=== PATIENT | female | born 1965 | race Caucasian/White ===

== ENCOUNTER → 2016-03-16 | Outpatient (CLI) | payer BC ==
--- NOTE | 2016-03-16 13:03 | US ---
EXAMINATION TYPE: US venous doppler duplex LE RT DATE OF EXAM: 03/16/2016 12:52 PM COMPARISON: NONE TECHNIQUE: Duplex Doppler ultrasound examination of the right lower extremity. CLINICAL HISTORY: 50-year-old female right leg pain and swelling. Right ankle swelling and tender rig ht calf. Findings: SIDE PERFORMED: Right VESSELS IMAGED: External Iliac Vein (EIV) Common Femoral Vein Deep Femoral Vein Greater Saphenous Vein * Femoral Vein Popliteal Vein Proximal Calf Veins Posterior tibial veins (* superficial vessels) Right Leg: Negative for DVT IMPRESSION: No evidence of DVT within the right lower extremity.
== END | disposition home or self-care (01) ==
LOC: RADUSWWP 12:24
PROVIDERS: ATTEND Orthopaedic Surgery
DX: M79.661 Pain in right lower leg (principal); I80.9 Phlebitis and thrombophlebitis of unspecified site

== ENCOUNTER 2016-03-30 13:11 | Observation (INO) | payer BC ==
[2016-03-30] MEDS ORDERED: NITROGLYCERIN OINT 1 INCH/GM PACKET TOPICAL STA (13:30)
[2016-03-30] MEDS ORDERED: ASPIRIN 81 MG CHEW PO STA (13:30)
--- NOTE | 2016-03-30 13:34 | ED ---
General Adult HPI - General Chief complaint: Chest Pain Stated complaint: Chest Pain Time Seen by Provider: 03/30/16 13:25 Source: patient, RN notes reviewed Mode of arrival: wheelchair Limitations: no limitations - History of Present Illness Initial comments: Patient is a pleasant 50-year-old female presenting to the emergency department complaining of chest discomfort. Onset of symptoms was around a half an hour ago. Symptoms lasted 5-7 minutes. Symptoms have now resolved and patient is symptom-free. Discomfort feels like burning in her chest. No associated dyspnea, nausea, or diaphoresis. Patient had similar symptoms once previously however only lasted for a few seconds. No leg pain or swelling. No cough or fever. Patient does have a history of VSD with repair as a child. Patient also has a history of complete heart block with pacemaker and defibrillator placement. - Related Data Home Medications Medication Instructions Recorded Confirmed Atorvastatin [Lipitor] 20 mg PO HS 09/25/13 03/30/16 rOPINIRole HCL [Requip] 1 mg PO DAILY 09/25/13 03/30/16 Cyanocobalamin [Vitamin B-12] 1,000 mcg PO DAILY 12/03/14 03/30/16 DULoxetine HCL [Cymbalta] 60 mg PO BID 12/03/14 03/30/16 Hydrocodone/Acetaminophen [Vicodin 1 tab PO BID PRN 12/03/14 03/30/16 5-300 mg Tablet] Metoprolol Tartrate [Lopressor] 100 mg PO HS 12/03/14 03/30/16 Omeprazole [PriLOSEC] 20 mg PO AC-BRKFST 12/03/14 03/30/16 Cholecalciferol [Vitamin D3] 5,000 unit PO BID 09/10/15 03/30/16 Dulaglutide [Trulicity] 1.5 mg SQ WE 09/10/15 03/30/16 rOPINIRole HCL [Requip] 2 mg PO HS 11/28/15 03/30/16 Amitriptyline HCl [Elavil] 40 mg PO HS 11/29/15 03/30/16 Gabapentin 900 mg PO BID 11/29/15 03/30/16 Metoprolol Tartrate [Lopressor] 50 mg PO DAILY 11/29/15 03/30/16 V-Go 40 See Protocol SQ CONTINUOUS 11/29/15 03/30/16 Aspirin 325 mg PO HS 03/30/16 03/30/16 Furosemide [Lasix] 40 mg PO DAILY 03/30/16 03/30/16 Metolazone [Zaroxolyn] 2.5 mg PO DAILY 03/30/16 03/30/16 Allergies Allergy/AdvReac Type Severity Reaction Status Date / Time ibuprofen [From Motrin] Allergy PT HAS Verified 03/30/16 13:49 WEAK HEART MUSCLES-HIGH DOSES CAUSES CHF Iodine and Iodide Containing Allergy Rash/Hives Verified 03/30/16 14:41 Produc meperidine HCl [From Demerol] AdvReac Unknown Vomiting Verified 03/30/16 13:49 Review of Systems ROS Statement: Those systems with pertinent positive or pertinent negative responses have been documented in the HPI. ROS Other: All systems not noted in ROS Statement are negative. Constitutional: Denies: fever Eyes: Denies: eye pain ENT: Denies: ear pain Respiratory: Denies: cough Cardiovascular: Reports: chest pain Endocrine: Denies: fatigue Gastrointestinal: Denies: abdominal pain Genitourinary: Denies: dysuria Musculoskeletal: Denies: back pain Skin: Denies: rash Neurological: Denies: weakness Past Medical History Past Medical History: Coronary Artery Disease (CAD), Diabetes Mellitus, Fibromyalgia, Hyperlipidemia, Hypertension Additional Past Medical History / Comment(s): HX VSD- STAPH INFECTION 12 YRS AGO (2002) UNDER RT ARM. BOWEL PROBLEMS LATELY- STARTS WITH BELCHING & PASSING GAS & THEN NO CONTROL OF BM.-STARTED IN JUNE 2014, pac emaker defibrillator AICD in place, History of Any Multi-Drug Resistant Organisms: None Reported Past Surgical History: Adenoidectomy, AICD, Orthopedic Surgery, Tubal Ligation Additional Past Surgical History / Comment(s): SINUS SURGERY & DEVIATED SEPTUM SURGERY, Rt Shoulder surgery, Ventricular septal defect surgery @ AGE 3, HX PACEMAKER 1980- GENERATOR CHANGE 1988-THEN AICD 2004 WITH MULTIPLE LASER LEAD EXTRACTIONS IN 2008([facility]) left eye surgery 12/24/14 and 01/11 vitrectomy. Past Anesthesia/Blood Transfusion Reactions: No Reported Reaction Additional Past Anesthesia/Blood Transfusion Reaction / Comment(s): pt states she wakes up "slow and emotional". Type of Cardiac Device: AICD Device Placement Date:: 2004 Past Psychological History: Anxiety Smoking Status: Never smoker Past Alcohol Use History: Rare Past Drug Use History: None Reported - Past Family History Mother Family Medical History: COPD Father Family Medical History: AICD/Pacemaker, Coronary Artery Disease (CAD), Diabetes Mellitus, Hypertension, Myocardial Infarction (HI) Additional Family Medical History / Comment(s): HI @ AGE 43 @ AGE 62 Brother(s) Family Medical History: Myocardial Infarction (HI) Additional Family Medical History / Comment(s): HX HI X 3 -1ST ONE @ AGE 39 General Exam Limitations: no limitations General appearance: alert, in no apparent distress Head exam: Present: atraumatic Eye exam: Present: normal appearance, PERRL ENT exam: Present: normal oropharynx Neck exam: Present: normal inspection Respiratory exam: Present: normal lung sounds bilaterally. Absent: chest wall tenderness Cardiovascular Exam: Present: regular rate, normal rhythm Expanded Peripheral pulses: 2+: Dorsalis Pedis (R), Dorsalis Pedis (L) GI/Abdominal exam: Present: soft. Absent: tenderness Extremities exam: Present: normal inspection. Absent: pedal edema, calf tenderness Neurological exam: Present: alert Psychiatric exam: Present: normal affect, normal mood Skin exam: Absent: rash Course Vital Signs 03/30/16 03/30/16 03/30/16 13:13 13:46 14:41 Temperature 97.8 F Pulse Rate 85 83 81 Respiratory 20 17 17 Rate Blood Pressure 133/68 127/74 98/56 O2 Sat by Pulse 99 97 96 Oximetry - Reevaluation(s) Reevaluation #1: 03/30/16 14:46 Patient has elevated d-dimer. Patient states she had several CAT scans in a short period of time following this developed puritic rash. Patient does have fractures and mostly appears is a medication reaction rash with some associated hives. Patient did have some peeling of the skin on the bottom of her feet. Patient is agreeable with pretreatment for iodine ALLERGY followed by computed tomography scan of the chest to provide a more accurate diagnosis of chest discomfort and elevated d-dimer. EKG Findings - EKG Comments: EKG Findings:: Paced rhythm at 87. PA 186. QRS 188. QT 428. QTC 515. [place] and indeterminate. Wide QRS complex. Nonspecific ST-T. Medical Decision Making - Medical Decision Making Patient examined and resting comfortably in bed. Patient is symptom-free. Patient and family updated on results and plan. Computed tomography scan was ordered to rule out pulmonary embolism. Case was discussed in detail with Dr. Dr. Dang, who will admit for Shai Flores. Admission orders written. IV heparin started. Consult placed for cardiology. - Lab Data Result diagrams: 03/30/16 13:30 03/30/16 13:30 Lab Results 03/30/16 03/30/16 03/30/16 Range/Units 13:30 13:30 13:30 WBC 10.0 (3.8-10.6) k/uL RBC 4.33 (3.80-5.40) m/uL Hgb 12.8 (11.4-16.0) gm/dL Hct 40.1 (34.0-46.0) % MCV 92.5 (80.0-100.0) fL MCH 29.5 (25.0-35.0) pg MCHC 31.9 (31.0-37.0) g/dL RDW 14.1 (11.5-15.5) % Plt Count 234 (150-450) k/uL Neutrophils % 64 % Lymphocytes % 26 % Monocytes % 5 % Eosinophils % 2 % Basophils % 1 % Neutrophils # 6.4 (1.3-7.7) k/uL Lymphocytes # 2.6 (1.0-4.8) k/uL Monocytes # 0.5 (0-1.0) k/uL Eosinophils # 0.2 (0-0.7) k/uL Basophils # 0.1 (0-0.2) k/uL PT (9.0-12.0) sec INR (<1.1) APTT (22.0-30.0) sec D-Dimer (<0.60) mg/L FEU Sodium 138 (137-145) mmol/L Potassium 5.4 H (3.5-5.1) mmol/L Chloride 96 L (98-107) mmol/L Carbon Dioxide 30 (22-30) mmol/L Anion Gap 12 mmol/L BUN 23 H (7-17) mg/dL Creatinine 0.80 (0.52-1.04) mg/dL Est GFR (MDRD) Af Amer >60 (>60 ml/min/1.73 sqM) Est GFR (MDRD) Non-Af >60 (>60 ml/min/1.73 sqM) Glucose 261 H (74-99) mg/dL Calcium 9.3 (8.4-10.2) mg/dL Magnesium 1.9 (1.6-2.3) mg/dL Total Bilirubin 0.6 (0.2-1.3) mg/dL AST 25 (14-36) U/L ALT 33 (9-52) U/L Alkaline Phosphatase 274 H (38-126) U/L Total Creatine Kinase 28 L (30-135) U/L CK-MB (CK-2) 0.9 (0.0-2.4) ng/mL CK-MB (CK-2) Rel Index 3.2 Troponin I <0.012 (0.000-0.034) ng/mL Total Protein 7.6 (6.3-8.2) g/dL Albumin 4.0 (3.5-5.0) g/dL 03/30/16 Range/Units 13:30 WBC (3.8-10.6) k/uL RBC (3.80-5.40) m/uL Hgb (11.4-16.0) gm/dL Hct (34.0-46.0) % MCV (80.0-100.0) fL MCH (25.0-35.0) pg MCHC (31.0-37.0) g/dL RDW (11.5-15.5) % Plt Count (150-450) k/uL Neutrophils % % Lymphocytes % % Monocytes % % Eosinophils % % Basophils % % Neutrophils # (1.3-7.7) k/uL Lymphocytes # (1.0-4.8) k/uL Monocytes # (0-1.0) k/uL Eosinophils # (0-0.7) k/uL Basophils # (0-0.2) k/uL PT 10.5 (9.0-12.0) sec INR 1.0 (<1.1) APTT 22.6 (22.0-30.0) sec D-Dimer 1.12 H (<0.60) mg/L FEU Sodium (137-145) mmol/L Potassium (3.5-5.1) mmol/L Chloride (98-107) mmol/L Carbon Dioxide (22-30) mmol/L Anion Gap mmol/L BUN (7-17) mg/dL Creatinine (0.52-1.04) mg/dL Est GFR (MDRD) Af Amer (>60 ml/min/1.73 sqM) Est GFR (MDRD) Non-Af (>60 ml/min/1.73 sqM) Glucose (74-99) mg/dL Calcium (8.4-10.2) mg/dL Magnesium (1.6-2.3) mg/dL Total Bilirubin (0.2-1.3) mg/dL AST (14-36) U/L ALT (9-52) U/L Alkaline Phosphatase (38-126) U/L Total Creatine Kinase (30-135) U/L CK-MB (CK-2) (0.0-2.4) ng/mL CK-MB (CK-2) Rel Index Troponin I (0.000-0.034) ng/mL Total Protein (6.3-8.2) g/dL Albumin (3.5-5.0) g/dL - Radiology Data Radiology results: image reviewed (Chest x-ray shows no acute process. Cardiomegaly.) Critical Care Time Critical Care Time: Yes Total Critical Care Time: 32 Disposition Clinical Impression: Unstable angina pectoris Disposition: ADMITTED IP TO THIS [facility] Condition: Serious
[2016-03-30 13:49] LABS: Basophils # (A) 0.1 k/uL (0-0.2); Basophils % (A) 1 %; CH 29.6; CHCM 32.1; Eosinophils # (A) 0.2 k/uL (0-0.7); Eosinophils % (A) 2 %; HCT 40.1 % (34.0-46.0); HDW 2.83; HGB 12.8 gm/dL (11.4-16.0); Luc # (Auto) 0.24; Luc % (Auto) 2; Lymphocytes # (A) 2.6 k/uL (1.0-4.8); Lymphocytes % (A) 26 %; MCH 29.5 pg (25.0-35.0); MCHC 31.9 g/dL (31.0-37.0); MCV 92.5 fL (80.0-100.0); Monocytes # (A) 0.5 k/uL (0-1.0); Monocytes % (A) 5 %; Neutrophils # (A) 6.4 k/uL (1.3-7.7); Neutrophils % (A) 64 %; RBC 4.33 m/uL (3.80-5.40); RDW 14.1 % (11.5-15.5); WBC (Perox) 9.97
[2016-03-30 14:02] LABS: Partial Thromboplastin Time 22.6 sec (22.0-30.0); Prothrombin Time 10.5 sec (9.0-12.0)
--- NOTE | 2016-03-30 14:06 | XR ---
EXAMINATION TYPE: XR chest 2V DATE OF EXAM: 03/30/2016 1:58 PM COMPARISON: Prior chest x-ray September 10, 2015 HISTORY: History of VSD and pacemaker presents with chest pain today TECHNIQUE: Frontal and lateral views of the chest are obtained. FINDINGS: Multiple sternal wires majority which are broken are redemonstrated. There is no focal air space opacity, pleural effusion, or pneumothorax seen bilaterally. The cardiac silhouette size remai ns enlarged with multi lead pacemaker/AICD. There is epicardial pacer device along the left anterior margin redemonstrated. A 11 mm linear metallic density is felt to reflect foreign body possibly rela channing to pacemaker likely within the right ventricular mucosal wall and is stable. The osseous structur es are intact. IMPRESSION: Cardiomegaly without acute pulmonary process. No significant change from prior.
[2016-03-30 14:11] LABS: Creatine Kinase 28 U/L (30-135)
[2016-03-30 14:15] LABS: ALT 33 U/L (9-52); AST 25 U/L (14-36); Alkaline Phosphatase 274 U/L (38-126); Anion Gap 12 mmol/L; Blood Urea Nitrogen 23 mg/dL (7-17); Calcium 9.3 mg/dL (8.4-10.2); Carbon Dioxide 30 mmol/L (22-30); Chloride 96 mmol/L (98-107); Glucose 261 mg/dL (74-99); Magnesium 1.9 mg/dL (1.6-2.3); Non-African American GFR(MDRD) >60 (>60 ml/min/1.73 sqM); Potassium 5.4 mmol/L (3.5-5.1); Sodium 138 mmol/L (137-145); Total Bilirubin 0.6 mg/dL (0.2-1.3); Total Protein 7.6 g/dL (6.3-8.2)
[2016-03-30 14:24] LABS: Creatine Kinase MB 0.9 ng/mL (0.0-2.4); Troponin I <0.012 ng/mL (0.000-0.034)
[2016-03-30] MEDS ORDERED: methylPREDNISolone SOD SUCCI 125 MG/2 ML VIAL IV STA (14:45)
[2016-03-30] MEDS ORDERED: RX INFO: IV CONTRAST WAS GIVEN 1 EACH MISC MISCELLANE PRN (14:45)
[2016-03-30] MEDS ORDERED: FAMOTIDINE 20 MG/2 ML VIAL IV STA (14:45)
[2016-03-30] MEDS ORDERED: diphenhydrAMINE 50 MG/ML 1 ML VIAL IVP STA (14:45)
[2016-03-30] MEDS ORDERED: HEPARIN SODIUM,PORCINE 5,000 UNIT/ML 1 ML VIAL IV PRN (15:34)
[2016-03-30] MEDS ORDERED: HEPARIN SODIUM,PORCINE 5,000 UNIT/ML 1 ML VIAL IV ONE (15:34)
[2016-03-30] MEDS ORDERED: NITROGLYCERIN SL TABS 0.4 MG TAB SUBLINGUAL PRN (15:34)
--- NOTE | 2016-03-30 15:34 | CT ---
EXAMINATION TYPE: CT angio chest DATE OF EXAM: 03/30/2016 3:22 PM COMPARISON: Same day chest x-ray HISTORY: Heavy chest pain CT DLP: 618 mGycm. Automated Exposure Control for Dose Reduction was Utilized. CONTRAST: CTA scan of the thorax is performed with IV Contrast, patient injected with 100 mL of Omnipaque 350, pulmonary embolism protocol. MIP Images are created on CT scanner and reviewed. FINDINGS: Exam is suboptimal secondary to patient's large body habitus. LUNGS: Low lung volumes are present. Increased groundglass opacity could reflect mild alveolar edema. There is no concerning parenchymal mass or nodule identified bilaterally. There is no pleural effu catherine or pneumothorax seen bilaterally. The tracheobronchial tree is patent. MEDIASTINUM: There is satisfactory enhancement of the pulmonary artery and its branches, there is no CT evidence for pulmonary embolism. There are no greater than 1 cm hilar or mediastinal lymph nodes. No pericardial effusion is seen. Sternal wires and mediastinal clips are redemonstrated. There is multilevel right-sided pacemaker/defibrillator. There is a left-sided epicardial pacemaker noted. Alyce ear 1 cm metallic foreign body in the right ventricle is confirmed, possible pacemaker fragment on ax ial image 93. OTHER: No additional significant abnormality is seen. IMPRESSION: No CT evidence for pulmonary embolism. Cardiomegaly with perhaps mild central alveolar ed jennifer, consider CHF exacerbation. No suspicious consolidation or acute pulmonary process identified oth erwise.
[2016-03-30] MEDS ORDERED: HEPARIN SODIUM,PORCINE/D5W PMX 25,000 UNIT in DEXTROSE/WATER 1 500ML.BAG IV SCH (15:45)
[2016-03-30 17:12] LABS: Glucose,Whole Blood 131 mg/dL (75-99)
[2016-03-30] MEDS ORDERED: HYDROcodone/APAP 5-325MG 1 EACH TAB PO PRN (17:37)
[2016-03-30] MEDS ORDERED: NON-FORMULARY DRUG (Dulaglutide [Trulicity] 1.5 MG) SQ SCH (17:45)
[2016-03-30] MEDS: NITROGLYCERIN OINT 1 INCH/GM PACKET TOPICAL SCH (18:14)
[2016-03-30] MEDS ORDERED: INSULIN LISPRO (humaLOG) 300 UNIT/3 ML VIAL SQ PRN (18:50)
[2016-03-30] MEDS ORDERED: INSPUCOR MISCELLANE PRN (18:50)
--- NOTE | 2016-03-30 20:30 | P.HPIM ---
History of Present Illness H&P Date: 03/30/16 Chief Complaint: Chest pain. This is a 50-year-old female one of Dr. 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 Johnson and Dr. Glynn, history of diabetes mellitus type 2 , hyperlipidemia, hypertension and hypertensive cardiovascular disease, VSD status post repair, history of the obesity, possible obstructive sleep apnea, anxiety, patient was brought into the emergency department at [facility] because of a chest tightness that started on Monday and it lasted for about 2 minutes while she is sitting on the table without any relation to exertion, it did radiate to the neck and left shoulder associated with left arm numbness, patient didn't do anything about it at this time. This is happening again today while she was sitting again without any relation to exertion developed to have a significant chest tightness radiating to the neck as well as left shoulder and the patient developed to have a significant amount of neck pain and left shoulder numbness patient ended up coming to the emergency department at [facility] and she was seen and evaluated by the emergency room physician and she ended up having an EKG that showed a paced rhythm, and her cardiac enzymes are negative however because of her significant history she was admitted to the hospital for evaluation and cardiology consultation was obtained. Of notice patient did have stress test within a year according to her. Review of Systems Constitutional: Reports weight gain, Denies anorexia, Denies chronic headaches, Denies lethargy, Denies malaise, Denies weakness, Denies weight loss Eyes: bilateral blurred vision, denies bulging eye, denies decreased vision, denies diplopia Ears: deny: decreased hearing Ears, nose, mouth and throat: Denies dysphagia, Denies neck lump, Denies swelling in throat, Denies sore throat Cardiovascular: Reports chest pain, Reports decreased exercise tolerance, Reports dyspnea on exertion, Reports high blood pressure, Reports shortness of breath, Denies orthopnea, Denies palpitations, Denies paroxysmal nocturnal dyspnea, Denies phlebitis, Denies syncope Respiratory: Reports dyspnea, Reports sleep apnea, Reports snoring, Denies congestion, Denies cough, Denies cough with sputum, Denies wheezing Gastrointestinal: Denies abdominal pain, Denies bloating, Denies BRBPR, Denies early satiety, Denies excessive gas, Denies heartburn, Denies melena, Denies nausea, Denies vomiting Genitourinary: Denies dysuria, Denies hematuria Musculoskeletal: Denies myalgias Musculoskeletal: absent: ankle pain, ankle stiffness, ankle swelling, elbow pain , elbow stiffness, elbow swelling, foot pain, foot stiffness, foot swelling, hand pain, hand stiffness, hand swelling, hip pain, hip stiffness, hip swelling , knee pain, knee stiffness, knee swelling, shoulder pain, shoulder stiffness, shoulder swelling, wrist pain, wrist stiffness, wrist swelling Integumentary: Denies pruritus, Denies rash Neurological: Denies numbness, Denies weakness Psychiatric: Denies anxiety, Denies depression Endocrine: Denies fatigue, Denies weight change Past Medical History Past Medical History: Coronary Artery Disease (CAD), Diabetes Mellitus, Fibromyalgia, Hyperlipidemia, Hypertension Additional Past Medical History / Comment(s): HX VSD- STAPH INFECTION 12 YRS AGO (2002) UNDER RT ARM. BOWEL PROBLEMS LATELY- STARTS WITH BELCHING & PASSING GAS & THEN NO CONTROL OF BM.-STARTED IN JUNE 2014, pacemaker defibrillator AICD in place, History of Any Multi-Drug Resistant Organisms: None Reported Past Surgical History: Adenoidectomy, AICD, Orthopedic Surgery, Tubal Ligation Additional Past Surgical History / Comment(s): SINUS SURGERY & DEVIATED SEPTUM SURGERY, Rt Shoulder surgery, Ventricular septal defect surgery @ AGE 3, HX PACEMAKER 1980- GENERATOR CHANGE 1988-THEN AICD 2004 WITH MULTIPLE LASER LEAD EXTRACTIONS IN 2008([employer]) left eye surgery 12/24/14 and 01/11 vitrectomy. Past Anesthesia/Blood Transfusion Reactions: No Reported Reaction Additional Past Anesthesia/Blood Transfusion Reaction / Comment(s): pt states she wakes up "slow and emotional". Type of Cardiac Device: AICD Device Placement Date:: 2004 Past Psychological History: Anxiety Smoking Status: Never smoker Past Alcohol Use History: Rare Past Drug Use History: None Reported - Past Family History Mother Family Medical History: COPD, Diabetes Mellitus (Mother 74-year-old has history of diabetes as well as COPD.) Father Family Medical History: AICD/Pacemaker, Coronary Artery Disease (CAD) (Father at the age of 62 from [place] coronary artery disease with a cardiomyopathy due to alcohol and his first CA was at the age of 43.), Diabetes Mellitus, Hypertension, Myocardial Infarction (CA) Additional Family Medical History / Comment(s): CA @ AGE 43 @ AGE 62 Brother(s) Family Medical History: Myocardial Infarction (CA) (Patient has one biological brother who has 3 MIs and 2 half-brothers per he) Additional Family Medical History / Comment(s): HX CA X 3 -1ST ONE @ AGE 39 Medications and Allergies Home Medications Medication Instructions Recorded Confirmed Type Atorvastatin [Lipitor] 20 mg PO HS 09/25/13 03/30/16 History rOPINIRole HCL [Requip] 1 mg PO DAILY 09/25/13 03/30/16 History Cyanocobalamin [Vitamin B-12] 1,000 mcg PO DAILY 12/03/14 03/30/16 History DULoxetine HCL [Cymbalta] 60 mg PO BID 12/03/14 03/30/16 History Hydrocodone/Acetaminophen [Vicodin 1 tab PO BID PRN 12/03/14 03/30/16 History 5-300 mg Tablet] Metoprolol Tartrate [Lopressor] 100 mg PO HS 12/03/14 03/30/16 History Omeprazole [PriLOSEC] 20 mg PO AC-BRKFST 12/03/14 03/30/16 History Cholecalciferol [Vitamin D3] 5,000 unit PO BID 09/10/15 03/30/16 History Dulaglutide [Trulicity] 1.5 mg SQ WE 09/10/15 03/30/16 History rOPINIRole HCL [Requip] 2 mg PO HS 11/28/15 03/30/16 History Amitriptyline HCl [Elavil] 40 mg PO HS 11/29/15 03/30/16 History Gabapentin 900 mg PO BID 11/29/15 03/30/16 History Metoprolol Tartrate [Lopressor] 50 mg PO DAILY 11/29/15 03/30/16 History V-Go 40 See Protocol SQ CONTINUOUS 11/29/15 03/30/16 History Aspirin 325 mg PO HS 03/30/16 03/30/16 History Furosemide [Lasix] 40 mg PO DAILY 03/30/16 03/30/16 History Metolazone [Zaroxolyn] 2.5 mg PO DAILY 03/30/16 03/30/16 History Allergies Allergy/AdvReac Type Severity Reaction Status Date / Time ibuprofen [From Motrin] Allergy PT HAS Verified 03/30/16 13:49 WEAK HEART MUSCLES-HIGH DOSES CAUSES CHF Iodine and Iodide Containing Allergy Rash/Hives Verified 03/30/16 14:41 Produc meperidine HCl [From Demerol] AdvReac Unknown Vomiting Verified 03/30/16 13:49 Physical Exam Vitals: Vital Signs Temp Pulse Pulse Resp BP BP Pulse Ox 03/30/16 17:22 80 18 03/30/16 16:40 97.6 F 80 18 120/62 03/30/16 16:23 97.9 F 79 17 129/55 97 Intake and Output 03/30/16 03/30/16 03/30/16 06:59 14:59 22:59 Other: Voiding Method Toilet # Voids 1 Weight 99.4 kg Patient Weight 03/31/16 06:59 Weight 99.4 kg - Constitutional General appearance: mild distress, obese - EENT Eyes: anicteric sclerae, PERRLA, no ptosis, no scleral icterus, normal appearance ENT: normal oropharynx, no thrush Ears: bilateral: normal - Neck Neck: no lymphadenopathy, normal ROM, no rigidity, no stridor, no thyromegaly Carotids: bilateral: upstroke normal Thyroid: bilateral: normal size - Respiratory Respiratory: bilateral: diminished, negative: dullness, rales, rhonchi, wheezing , prolonged expiration, prolonged inspiration - Cardiovascular Rhythm: regular Heart sounds: normal: S1, S2 Abnormal Heart Sounds: systolic murmur (There is AICD/permanent pacemaker) - Gastrointestinal General gastrointestinal: normal bowel sounds, soft, no splenomegaly, no tenderness, no umbilical hernia, no ventral hernia - Integumentary Integumentary: normal, normal turgor, ulcer (Left heel.) - Neurologic Neurologic: CNII-XII intact - Musculoskeletal Musculoskeletal: gait normal, strength equal bilaterally - Psychiatric Psychiatric: A&O x's 3, appropriate affect, intact judgment & insight Results CBC & Chem 7: 03/30/16 13:30 03/30/16 13:30 Labs: Abnormal Lab Results - Last 24 Hours (Table) 03/30/16 Range/Units 17:11 POC Glucose (mg/dL) 131 H (75-99) mg/dL Thrombosis Risk Factor Assmnt - DVT/VTE Prophylaxis DVT/VTE Prophylaxis: Pharmacologic Prophylaxis ordered, Mechanical Prophylaxis ordered Assessment and Plan Plan: Assessment and plan: 1. Chest pain/tightness in a patient with significant history of cardiomyopathy. Patient will be started on aspirin 325 mg orally once every day , metoprolol 50 mg the morning and 100 mg at bedtime, heparin drip, cardiac enzymes 3 every 8 hours, cardiology consultation from Dr. Johnson. 2. History of congenital cardiomyopathy post AICD. Continue metoprolol 50 mg the morning and 100 mg at bedtime, continue Lasix 40 mg orally once every day, Zaroxolyn 2.5 mg orally once every day, monitor the patient CMP magnesium level. 3. Diabetes mellitus type 2. Continue current insulin pump. 4. Diabetic polyneuropathy. Continue gabapentin 900 mg orally twice every day , Cymbalta 60 mg orally twice every day, amitriptyline 40 mg at bedtime. 5. Restless leg syndrome. Continue patient on ropinirole 2 mg in the morning and 1 mg at bedtime. 6. Hyperlipidemia. Continue patient on Lipitor 20 mg orally once every day. 7. Vitamin D deficiency. Continue vitamin D 5000 units twice a day. 8. Obesity with possible obstructive sleep apnea. Patient will need to have a sleep study as an outpatient. 9. Left heel ulcer. Follow-up with one clinic. 10. Hypertension and hypertensive cardiovascular disease. Continue metoprolol 50 mg in the morning and 100 mg at bedtime. 11. Patient is a full code. 12. Observation.
[2016-03-30 20:31] LABS: Creatine Kinase 31 U/L (30-135)
[2016-03-30 20:44] LABS: Troponin I <0.012 ng/mL (0.000-0.034)
[2016-03-30] MEDS ORDERED: INSULIN PUMP MEAL BOLUS 1 UNIT MISC MISCELLANE SCH (21:00)
[2016-03-30] MEDS ORDERED: METOPROLOL TARTRATE 50 MG TAB PO SCH (21:00)
[2016-03-30] MEDS ORDERED: AMITRIPTYLINE HCL 10 MG TAB PO SCH (21:00)
[2016-03-30] MEDS ORDERED: ASPIRIN 325 MG TAB PO SCH (21:00)
[2016-03-30] MEDS ORDERED: ATORVASTATIN 20 MG TAB PO SCH (21:00)
[2016-03-30] MEDS: DULoxetine HCL 60 MG CAPSULE.DR PO SCH (21:54)
[2016-03-30] MEDS: GABAPENTIN 300 MG CAP PO SCH (21:55)
[2016-03-30] MEDS: CHOLECALCIFEROL 1,000 UNIT TAB PO SCH (21:55)
[2016-03-30 22:42] LABS: Glucose,Whole Blood 321 mg/dL (75-99)
[2016-03-31 02:25] LABS: CH 30.2; CHCM 32.8; HCT 39.7 % (34.0-46.0); HDW 2.78; HGB 12.6 gm/dL (11.4-16.0); MCH 29.4 pg (25.0-35.0); MCHC 31.7 g/dL (31.0-37.0); MCV 92.6 fL (80.0-100.0); Mean Platelet Volume 7.7; RBC 4.28 m/uL (3.80-5.40); RDW 14.1 % (11.5-15.5)
[2016-03-31 02:50] LABS: ALT 35 U/L (9-52); AST 22 U/L (14-36); Alkaline Phosphatase 281 U/L (38-126); Anion Gap 13 mmol/L; Blood Urea Nitrogen 27 mg/dL (7-17); Calcium 9.1 mg/dL (8.4-10.2); Carbon Dioxide 27 mmol/L (22-30); Chloride 94 mmol/L (98-107); Cholesterol 163 mg/dL (<200); Creatine Kinase 34 U/L (30-135); Glucose 336 mg/dL (74-99); HDL Cholesterol 45 mg/dL (40-60); Non-African American GFR(MDRD) >60 (>60 ml/min/1.73 sqM); Potassium 4.5 mmol/L (3.5-5.1); Sodium 134 mmol/L (137-145); Total Bilirubin 0.5 mg/dL (0.2-1.3); Total Protein 7.6 g/dL (6.3-8.2); Triglycerides 79 mg/dL (<150)
[2016-03-31 03:02] LABS: Creatine Kinase MB 0.9 ng/mL (0.0-2.4); Troponin I <0.012 ng/mL (0.000-0.034)
[2016-03-31] MEDS: NITROGLYCERIN OINT 1 INCH/GM PACKET TOPICAL SCH ×3 (04:37→12:17)
[2016-03-31 06:44] LABS: Glucose,Whole Blood 338 mg/dL (75-99)
[2016-03-31] MEDS ORDERED: PANTOPRAZOLE 40 MG TABLET PO SCH (07:30)
[2016-03-31 08:17] VITALS: RESP 18
[2016-03-31] MEDS ORDERED: ASPIRIN 325 MG TAB PO SCH (09:00)
[2016-03-31] MEDS ORDERED: METOLAZONE 2.5 MG TAB PO SCH (09:00)
[2016-03-31] MEDS ORDERED: METOPROLOL TARTRATE 50 MG TAB PO SCH (09:00)
[2016-03-31] MEDS ORDERED: FUROSEMIDE 40 MG TAB PO SCH (09:00)
[2016-03-31] MEDS ORDERED: INSULIN PUMP MEAL BOLUS 1 UNIT MISC MISCELLANE SCH ×2 (09:01→11:07)
[2016-03-31] MEDS: CHOLECALCIFEROL 1,000 UNIT TAB PO SCH (09:09)
[2016-03-31] MEDS: GABAPENTIN 300 MG CAP PO SCH (09:09)
[2016-03-31] MEDS: DULoxetine HCL 60 MG CAPSULE.DR PO SCH (09:10)
[2016-03-31] MEDS ORDERED: FUROSEMIDE 10 MG/ML 4 ML VIAL IV STA (09:58)
[2016-03-31] MEDS ORDERED: INSULIN PUMP BASAL RATES 1 EACH MISC MISCELLANE PRN (11:04)
[2016-03-31] MEDS ORDERED: INSPUCOR MISCELLANE PRN (11:04)
[2016-03-31 11:54] VITALS: BP 110/64; PULSE 86; TEMP 98.7
[2016-03-31] MEDS ORDERED: CYANOCOBALAMIN 500 MCG TAB PO SCH (12:00)
[2016-03-31 12:19] LABS: Glucose,Whole Blood 364 mg/dL (75-99)
[2016-03-31 14:00] VITALS: BMI 42.7
--- NOTE | 2016-03-31 17:00 | P.DS ---
Providers Date of admission: 03/30/16 15:34 Expected date of discharge: 03/31/16 Attending physician: Tarsha Dang Primary care physician: Anjel Vann [facility] Course: This is a 50-year-old female one of Dr. 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 Johnson and Dr. Glynn, history of diabetes mellitus type 2 , hyperlipidemia, hypertension and hypertensive cardiovascular disease, VSD status post repair, history of the obesity, possible obstructive sleep apnea, anxiety, patient was brought into the emergency department at [facility] because of a chest tightness that started on Monday and it lasted for about 2 minutes while she is sitting on the table without any relation to exertion, it did radiate to the neck and left shoulder associated with left arm numbness, patient didn't do anything about it at this time. This is happening again today while she was sitting again without any relation to exertion developed to have a significant chest tightness radiating to the neck as well as left shoulder and the patient developed to have a significant amount of neck pain and left shoulder numbness patient ended up coming to the emergency department at [facility] and she was seen and evaluated by the emergency room physician and she ended up having an EKG that showed a paced rhythm, and her cardiac enzymes are negative however because of her significant history she was admitted to the hospital for evaluation and cardiology consultation was obtained. Of notice patient did have stress test within a year according to her. 2/2: Patient has been seen by Dr. Glynn with recommendations for IV Lasix one dose and plan for outpatient workup with Dr. Johnson in a week. Patient will be discharged home today in stable condition. Discharge diagnoses: 1. Chest pain and tightness in a patient with significant history of cardiomyopathy. 2. History of congenital cardiomyopathy post AICD. 3. Diabetes mellitus type 2. 4. Diabetic polyneuropathy. 5. Restless leg syndrome. 6. Hyperlipidemia. 7. Vitamin D deficiency. 8. Morbid obesity with BMI of 42 and possible obstructive sleep apnea. 9. Left heel ulcer. Follow-up with wound clinic. 10. Hypertension and hypertensive cardiovascular disease. Discharge plan: Return home Impression and plan of care have been directed as dictated by the signing physician. Radha Almeida nurse practitioner acting as scribe for signing physician. Cc: Dr. Anjel Vann Patient Condition at Discharge: Good Plan - Discharge Summary Discharge Medication List Atorvastatin [Lipitor] 20 mg PO HS 09/25/13 [History] rOPINIRole HCL [Requip] 1 mg PO DAILY 09/25/13 [History] Cyanocobalamin [Vitamin B-12] 1,000 mcg PO DAILY 12/03/14 [History] DULoxetine HCL [Cymbalta] 60 mg PO BID 12/03/14 [History] Hydrocodone/Acetaminophen [Vicodin 5-300 mg Tablet] 1 tab PO BID PRN 12/03/14 [ History] Metoprolol Tartrate [Lopressor] 100 mg PO HS 12/03/14 [History] Omeprazole [PriLOSEC] 20 mg PO AC-BRKFST 12/03/14 [History] Cholecalciferol [Vitamin D3] 5,000 unit PO BID 09/10/15 [History] Dulaglutide [Trulicity] 1.5 mg SQ WE 09/10/15 [History] rOPINIRole HCL [Requip] 2 mg PO HS 11/28/15 [History] Amitriptyline HCl [Elavil] 40 mg PO HS 11/29/15 [History] Gabapentin 900 mg PO BID 11/29/15 [History] Metoprolol Tartrate [Lopressor] 50 mg PO DAILY 11/29/15 [History] V-Go 40 See Protocol SQ CONTINUOUS 11/29/15 [History] Aspirin 325 mg PO HS 03/30/16 [History] Furosemide [Lasix] 40 mg PO DAILY 03/30/16 [History] Metolazone [Zaroxolyn] 2.5 mg PO DAILY 03/30/16 [History] Follow up Appointment(s)/Referral(s): Anjel Vann MD [Primary Care Provider] - 1 Week Michelle Johnson MD [STAFF PHYSICIAN] - 1 Week Discharge Disposition: HOME SELF-CARE
[2016-03-31 17:09] LABS: Glucose,Whole Blood 384 mg/dL (75-99)
--- NOTE | 2016-04-08 08:23 | CONS ---
DATE OF CONSULTATION: Zaira presented with chest discomfort and chest tightness that started on Monday and lasted for several minutes as she was sitting. She has had recurrence of his episodes and later it started radiating to the neck as well as left shoulder. She came to the emergency room, her 12-lead ECG showed a paced rhythm. She has complete heart block status post ICD implantation. She has also undergone laser lead extraction by me greater than 12 years back. She denied any dizziness, lightheadedness or shortness of breath. She states she has gained a fair amount of weight and diabetes is not under control. Her past history of congenital heart disease status post ICD implantation, complete heart block, diabetes and dyslipidemia, hypertension, and hypertensive cardiovascular disease, VSD, status post repair, history of obesity, obstructive sleep apnea. REVIEW OF SYSTEMS: No fever, chills, rigors. No cough or expectoration. No nausea, or diarrhea. No hematuria, dysuria, strokes or seizures. No skin lesions or musculoskeletal complaints. Alcohol rarely used. She is a never smoker. Surgeries for congenital heart disease, laser lead extraction, pacemaker implantation, laser extraction of pacemaker lead, implantation ICD lead. MEDICATIONS: List was reviewed and is documented in the chart. ALLERGIES: As documented in the chart. On examination, she was afebrile. Pulse rate was in the 80s, blood pressure 129/55 mm of mercury, pulse ox normal. Head and neck examination is normal. Heart sounds S1 and S2 are normal. Breath sounds are normal. ICD site has healed well. ABDOMEN: Soft. EXTREMITIES: Warm. IMPRESSION: Atypical chest discomfort, congenital heart disease, and complete heart block status post VSD repair and ICD implantation. Paced rhythm. Labs are reviewed. Cardiac enzymes have been normal. TSH is normal. Electrolytes show chloride of 94 and sodium of 134. Potassium is normal. White count is normal. SUGGEST: Stop heparin after all 3 cardiac enzymes are normal and she can follow up with Dr. Johnson in the office and an outpatient Lexiscan stress test may be ordered as an outpatient.
== END 2016-03-31 17:25 | disposition home or self-care (01) ==
LOC: EC 13:11 → 3OBS 15:34
PROVIDERS: ADMIT Internal Medicine; ATTEND Internal Medicine
DX: R07.89 Other chest pain (principal); I42.4 Endocardial fibroelastosis; E11.42 Type 2 diabetes mellitus with diabetic polyneuropathy; G25.81 Restless legs syndrome; L97.429 Non-pressure chronic ulcer of left heel and midfoot with unspecified severity; E78.5 Hyperlipidemia, unspecified; E55.9 Vitamin D deficiency, unspecified; Z68.41 Body mass index [BMI] 40.0-44.9, adult; E66.01 Morbid (severe) obesity due to excess calories; F41.9 Anxiety disorder, unspecified; M79.7 Fibromyalgia; I11.9 Hypertensive heart disease without heart failure; R21 Rash and other nonspecific skin eruption; E11.621 Type 2 diabetes mellitus with foot ulcer; R79.89 Other specified abnormal findings of blood chemistry; I25.10 Atherosclerotic heart disease of native coronary artery without angina pectoris; Z95.810 Presence of automatic (implantable) cardiac defibrillator; Z79.899 Other long term (current) drug therapy; Z79.82 Long term (current) use of aspirin; Z88.6 Allergy status to analgesic agent; Z88.5 Allergy status to narcotic agent; Z96.41 Presence of insulin pump (external) (internal); Z82.49 Family history of ischemic heart disease and other diseases of the circulatory system; Z87.74 Personal history of (corrected) congenital malformations of heart and circulatory system; Z79.4 Long term (current) use of insulin; Z88.3 Allergy status to other anti-infective agents
CPT/HCPCS: 99291 ×2; 96375 ×4; 96376 ×2; 36415; 93005; 85379; 83880; 80061; 80053 ×2; 84443; 83036; 82550 ×2; 82553 ×2; 83735; 84484 ×2; 85025; 85027; 85610; 85730; 71020; 71275; G0378 ×2; J1200; J1644 ×3; J1940; J2930; Q9967; 96366

== ENCOUNTER → 2016-04-21 | Outpatient (CLI) | payer BC ==
--- NOTE | 2016-04-27 08:51 | P.ARTDOP ---
Arterial Doppler LOWER EXTREMITY ARTERIAL DOPPLER: DATE OF SERVICE: 04/21/2016 Reason for study: Left leg pain. Doppler waveforms: Multiphasic bilaterally throughout. Pulse volume recording: Normal configuration. Pressure gradients: None. Ankle-brachial indices: Greater than 1 bilaterally. Toe pressures: 44 on the right, 51 on the left Impression: Normal study. Note: Although the toe pressures are low, the digital plethysmography is normal. Also systemic pressure is relatively low..
== END | disposition home or self-care (01) ==
LOC: RADUSWWP 10:19
PROVIDERS: ATTEND Family Medicine
DX: M79.605 Pain in left leg (principal)
CPT/HCPCS: 93923

== ENCOUNTER 2016-05-31 11:38 | Day surgery (SDC) | payer BC ==
[2016-05-26 16:09] VITALS: BMI 44.1
[~2016-05-31 11:38] MED LIST: SODIUM CHLORIDE 0.9% 1,000 ML IV SCH
[2016-05-31 12:03] VITALS: BP 144/78; PULSE 92; RESP 18; TEMP 98.7
[2016-05-31] MEDS ORDERED: IODIXANOL 320 MG/ML 100 ML IV ONE (12:15)
--- NOTE | 2016-05-31 12:26 | P.PCN ---
Preoperative Diagnosis: Left upper extremity venogram 15-20 mL of IV dye was injected in the left upper extremity. 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 Patient is complete heart block Diabetes control to reduce infections rate since she's had multiple procedures in the past
== END 2016-05-31 12:48 | disposition home or self-care (01) ==
LOC: CATHEP 11:38
PROVIDERS: ATTEND Internal Medicine Clinical Cardiac Electrophysiology
DX: I82.B12 Acute embolism and thrombosis of left subclavian vein (principal); I44.2 Atrioventricular block, complete; I42.9 Cardiomyopathy, unspecified; I11.0 Hypertensive heart disease with heart failure; I50.23 Acute on chronic systolic (congestive) heart failure; Z95.810 Presence of automatic (implantable) cardiac defibrillator; R60.0 Localized edema; E11.9 Type 2 diabetes mellitus without complications; E78.2 Mixed hyperlipidemia; Q21.0 Ventricular septal defect; I25.10 Atherosclerotic heart disease of native coronary artery without angina pectoris; Z82.49 Family history of ischemic heart disease and other diseases of the circulatory system; Z79.4 Long term (current) use of insulin; Z79.82 Long term (current) use of aspirin; Z79.891 Long term (current) use of opiate analgesic; Z79.899 Other long term (current) drug therapy; Z88.8 Allergy status to other drugs, medicaments and biological substances
CPT/HCPCS: 36005; 75820; Q9967

== ENCOUNTER 2016-07-06 15:42 | Observation (INO) | payer BC ==
--- NOTE | 2016-07-06 17:24 | ED ---
Abdominal Pain HPI <RashaunvikaDuglas - Last Filed: 07/06/16 17:49> - General Source: patient, RN notes reviewed Mode of arrival: ambulatory Limitations: no limitations <Patricia Looney - Last Filed: 07/06/16 18:11> - General Chief Complaint: Abdominal Pain Stated Complaint: Abd Pain Time Seen by Provider: 07/06/16 17:09 - History of Present Illness Initial Comments: Patient is a 50-year-old female presents to the emergency room for evaluation. Patient states she began having right lower quadrant pain last Monday. Patient states she called her primary care provider on Monday and they were unable to get her in for an appointment. Patient states that they ordered a CT of her abdomen and pelvis which she went in for this morning. Patient states that she received a phone call from Dr. Holley to come to the emergency room regarding her computed tomography scan results. Patient does state that she had an episode of appendicitis in November. Patient states she was treated with antibiotics since she was having a CHF exacerbation and they could not take out her appendix at that time. Patient denies history of abdominal surgeries. Patient denies any current abdominal pain, fevers, chills, nausea, vomiting. Patient denies constipation or diarrhea. (Patricia Looney) - Related Data Home Medications Medication Instructions Recorded Confirmed Atorvastatin [Lipitor] 20 mg PO HS 09/25/13 07/06/16 rOPINIRole HCL [Requip] 1 mg PO QAM 09/25/13 07/06/16 Cyanocobalamin [Vitamin B-12] 1,000 mcg PO DAILY 12/03/14 07/06/16 DULoxetine HCL [Cymbalta] 60 mg PO BID 12/03/14 07/06/16 Metoprolol Tartrate [Lopressor] 100 mg PO HS 12/03/14 07/06/16 Omeprazole [PriLOSEC] 20 mg PO AC-BRKFST 12/03/14 07/06/16 Cholecalciferol [Vitamin D3] 5,000 unit PO BID 09/10/15 07/06/16 Dulaglutide [Trulicity] 1.5 mg SQ WE 09/10/15 07/06/16 rOPINIRole HCL [Requip] 2 mg PO HS 11/28/15 07/06/16 Amitriptyline HCl [Elavil] 40 mg PO HS 11/29/15 07/06/16 Gabapentin 900 mg PO BID 11/29/15 07/06/16 Metoprolol Tartrate [Lopressor] 50 mg PO QAM 11/29/15 07/06/16 Furosemide [Lasix] 40 mg PO Q48H 03/30/16 07/06/16 Metolazone [Zaroxolyn] 2.5 mg PO Q48H 03/30/16 07/06/16 Albuterol Nebulized [Ventolin 2.5 mg INHALATION RT-DAILY PRN 04/04/16 07/06/16 Nebulized] Cyclobenzaprine [Flexeril] 10 mg PO BID 04/04/16 07/06/16 Ramipril [Altace] 5 mg PO DAILY 04/04/16 07/06/16 Spironolactone [Aldactone] 25 mg PO DAILY 04/04/16 07/06/16 valACYclovir [Valtrex] 500 mg PO DAILY 04/04/16 07/06/16 Amitriptyline HCl [Elavil] 10 mg PO QAM 05/26/16 07/06/16 Furosemide [Lasix] 80 mg PO Q48H 05/26/16 07/06/16 [id number]-[id number] 1 tab PO BID PRN 07/06/16 07/06/16 [Excedrin] Insulin Aspart [NovoLOG Flexpen] See Protocol SQ AC-TID 07/06/16 07/06/16 Insulin Glargine,Hum.rec.anlog 50 unit SQ DAILY 07/06/16 07/06/16 [Basaglar Kwikpen U-100] Allergies Allergy/AdvReac Type Severity Reaction Status Date / Time ibuprofen [From Motrin] Allergy PT HAS Verified 07/06/16 17:42 WEAK HEART MUSCLES-HIGH DOSES CAUSES CHF Iodine and Iodide Containing Allergy Rash/Hives Verified 07/06/16 17:42 Produc meperidine HCl [From Demerol] AdvReac Unknown Vomiting Verified 07/06/16 17:42 Review of Systems ROS Other: All systems not noted in ROS Statement are negative. <Duglas Phelps - Last Filed: 07/06/16 17:49> ROS Other: All systems not noted in ROS Statement are negative. <Patricia Looney - Last Filed: 07/06/16 18:11> ROS Statement: Those systems with pertinent positive or pertinent negative responses have been documented in the HPI. Past Medical History Past Medical History: Asthma, Diabetes Mellitus, Eye Disorder, Fibromyalgia Additional Past Medical History / Comment(s): SEE DR MCGILL H&P, MATHEW LEGS NEUROPATHY, FX OF LEFT FOOT, Diabetic Gastroparesis. TAKES MEDICATION MAINTENENCE FOR STD, History of Any Multi-Drug Resistant Organisms: None Reported Past Surgical History: Adenoidectomy, AICD, Orthopedic Surgery Additional Past Surgical History / Comment(s): SINUS SURGERY, DEVIATED SEPTUM SURGERY,. HX PACEMAKER ORIGINAL ONE 1980-HAS HAD MULT. GENERATOR CHANGES, MATHEW eye surgery and 01/11 vitrectomy. WOUND CENTER FOR LEFT FOOT WOUND, I&D RT AXILLA FOR STAPH INFECTION, PICC LINE. SX TO RELEASE FROZEN RT SHOULDER Past Anesthesia/Blood Transfusion Reactions: Previous Problems w/ Anesthesia Additional Past Anesthesia/Blood Transfusion Reaction / Comment(s): pt states she wakes up "slow and emotional-CRIES". Type of Cardiac Device: AICD Device Placement Date:: 2004 [employer] Past Psychological History: No Psychological Hx Reported Additional Psychological History / Comment(s): CYMBALTA, ELAVIL USED TO HELP WITH PAIN AND RESTLESS LEG Smoking Status: Never smoker Past Alcohol Use History: Rare Past Drug Use History: None Reported - Past Family History Mother Family Medical History: COPD Father Family Medical History: AICD/Pacemaker, Coronary Artery Disease (CAD), Diabetes Mellitus, Hypertension, Myocardial Infarction ([place]) Additional Family Medical History / Comment(s): [place] @ AGE 43 @ AGE 62 Brother(s) Family Medical History: Myocardial Infarction ([place]) Additional Family Medical History / Comment(s): HX [place] X 3 -1ST ONE @ AGE 39 <Patricia Looney - Last Filed: 07/06/16 18:11> General Exam <Duglas Phelps - Last Filed: 07/06/16 17:49> Limitations: no limitations General appearance: alert, in no apparent distress Head exam: Present: atraumatic, normocephalic, normal inspection Eye exam: Present: normal appearance ENT exam: Present: normal exam Neck exam: Present: normal inspection Respiratory exam: Present: normal lung sounds bilaterally. Absent: respiratory distress Cardiovascular Exam: Present: regular rate, normal rhythm, normal heart sounds GI/Abdominal exam: Present: soft, tenderness (very minimal tenderness on palpating over RLQ), normal bowel sounds. Absent: distended, guarding, rebound , rigid Extremities exam: Present: normal inspection Back exam: Present: normal inspection Neurological exam: Present: alert, oriented X3, CN II-XII intact, normal gait Psychiatric exam: Present: normal affect, normal mood Skin exam: Present: warm, dry, intact, normal color. Absent: rash <Patricia Looney - Last Filed: 07/06/16 18:11> - General Exam Comments Initial Comments: Sitting in exam room, no acute distress. (Patricia Looney) Medical Decision Making <Duglas Phelps - Last Filed: 07/06/16 17:49> - Radiology Data Radiology results: report reviewed, image reviewed <Patricia Looney - Last Filed: 07/06/16 18:11> - Medical Decision Making I saw this patient in conjunction with the physician digital assistant. I performed independent history and physical exam. Agree with case management. (Duglas Phelps) Patient is a 50-year-old female presents to the emergency room for evaluation of abnormal abdomen CT. Patient has a history of acute appendicitis back in November and was treated with antibiotics. Patient states began having pain in her right lower quadrant last Monday. Patient went in for a CT of her abdomen /pelvis today received a phone call to come in. Patient does appear to have inflammation of her appendix. Case discussed with Dr. Phelps. Dr. Phelps discussed case with Dr. Bond who agreed to admit patient. Patient will be started on antibiotics and evaluated by general surgery tomorrow morning. ( Patricia Looney) Disposition <Duglas Phelps - Last Filed: 07/06/16 17:49> Decision Date: 07/06/16 <Patricai Looney - Last Filed: 07/06/16 18:11> Clinical Impression: Appendicitis Disposition: ADMITTED IP TO THIS [facility] Condition: Stable Referrals: Anjel Vann MD [Primary Care Provider] - 1-2 days
[2016-07-06] MEDS ORDERED: NALOXONE 0.4 MG/ML 1 ML VIAL IV PRN (17:54)
[2016-07-06] MEDS ORDERED: MORPHINE SULFATE 4 MG/ML SYRINGE IV PRN (17:54)
[2016-07-06] MEDS ORDERED: PIPERACILLIN-TAZOBACTAM 3.375 GM in DEXTROSE/WATER 1 50ML.BAG IVPB STA (17:58)
[2016-07-06 18:18] LABS: Appearance,Urine Clear (Clear); Bilirubin,Urine Negative (Negative); Glucose,Urine (UA) 4+ (Negative); Ketones,Urine Negative (Negative); Leukocyte Esterase,Urine Negative (Negative); Nitrite,Urine Negative (Negative); PH, Urine 5.5 (5.0-8.0); Protein,Urine Trace (Negative); Specific Gravity,Urine 1.027 (1.001-1.035); UA Billing (MACRO vs. MICRO) CHEM; Urobilinogen,Urine <2.0 mg/dL (<2.0)
[2016-07-06 18:25] LABS: ALT 35 U/L (9-52); AST 24 U/L (14-36); Alkaline Phosphatase 224 U/L (38-126); Anion Gap 12 mmol/L; Basophils % (A) 0 %; Blood Urea Nitrogen 34 mg/dL (7-17); CHCM 33.8; Calcium 9.3 mg/dL (8.4-10.2); Carbon Dioxide 30 mmol/L (22-30); Chloride 94 mmol/L (98-107); Eosinophils % (A) 0 %; Glucose 380 mg/dL (74-99); HCT 38.4 % (34.0-46.0); HDW 2.63; HGB 12.8 gm/dL (11.4-16.0); Luc # (Auto) 0.04; Luc % (Auto) 0; Lymphocytes # (A) 0.9 k/uL (1.0-4.8); Lymphocytes % (A) 8 %; MCH 30.6 pg (25.0-35.0); MCHC 33.2 g/dL (31.0-37.0); Mean Platelet Volume 7.5; Monocytes # (A) 0.3 k/uL (0-1.0); Monocytes % (A) 3 %; Neutrophils # (A) 9.3 k/uL (1.3-7.7); Neutrophils % (A) 88 %; Non-African American GFR(MDRD) >60 (>60 ml/min/1.73 sqM); Potassium 4.1 mmol/L (3.5-5.1); RBC 4.18 m/uL (3.80-5.40); RDW 14.9 % (11.5-15.5); Sodium 136 mmol/L (137-145); Total Bilirubin 0.6 mg/dL (0.2-1.3); Total Protein 7.8 g/dL (6.3-8.2); WBC 10.6 k/uL (3.8-10.6); WBC (Perox) 10.52
[2016-07-06] MEDS: SODIUM CHLORIDE 0.9% 1,000 ML IV SCH (18:30)
[2016-07-06 19:52] LABS: Glucose,Whole Blood 362 mg/dL (75-99)
[2016-07-06] MEDS: INSULIN LISPRO (humaLOG) 300 UNIT/3 ML VIAL SQ SCH (20:31)
[2016-07-06 21:57] LABS: Glucose,Whole Blood 350 mg/dL (75-99)
[2016-07-07] MEDS ORDERED: ALBUTEROL NEBULIZED 2.5 MG/3 ML INHALATION PRN (01:07)
[2016-07-07] MEDS ORDERED: ASPIRIN-ACET-CAFF 250-250-65MG 1 EACH TAB PO PRN (01:07)
[2016-07-07] MEDS: AMITRIPTYLINE HCL 10 MG TAB PO SCH ×2 (01:47→22:35)
[2016-07-07] MEDS: ATORVASTATIN 20 MG TAB PO SCH ×2 (01:48→22:34)
[2016-07-07] MEDS: GABAPENTIN 300 MG CAP PO SCH ×3 (01:49→22:37)
[2016-07-07] MEDS: METOPROLOL TARTRATE 50 MG TAB PO SCH ×3 (01:50→22:38)
[2016-07-07 07:11] LABS: Glucose,Whole Blood 255 mg/dL (75-99)
[2016-07-07] MEDS: INSULIN LISPRO (humaLOG) 300 UNIT/3 ML VIAL SQ SCH ×4 (07:31→22:24)
[2016-07-07] MEDS: CHOLECALCIFEROL 1,000 UNIT TAB PO SCH ×2 (07:31→22:36)
[2016-07-07 07:57] LABS: Hemoglobin A1C 8.7 % (4.2-6.1)
[2016-07-07] MEDS ORDERED: AMITRIPTYLINE HCL 10 MG TAB PO SCH (09:00)
--- NOTE | 2016-07-07 09:37 | P.GSHP ---
History of Present Illness H&P Date: 07/07/16 Chief Complaint: Right lower quadrant pain Is a 50-year-old female who has complaints of right lower quadrant pain. Patient CAT scan performed yesterday which is suggestive of appendicitis. Patient states that she had a previous admission for appendicitis in November. At that time she was treated with IV antibiotics and no surgical procedures performed. Patient states that she has had pain for the last several weeks in the right lower quadrant. - Constitutional Constitutional: Reports as per HPI Past Medical History Past Medical History: Asthma, Diabetes Mellitus, Eye Disorder, Fibromyalgia Additional Past Medical History / Comment(s): SEE DR MCGILL H&P, MATHEW LEGS NEUROPATHY, FX OF LEFT FOOT, Diabetic Gastroparesis. TAKES MEDICATION MAINTENENCE FOR STD, History of Any Multi-Drug Resistant Organisms: None Reported Past Surgical History: Adenoidectomy, AICD, Orthopedic Surgery Additional Past Surgical History / Comment(s): SINUS SURGERY, DEVIATED SEPTUM SURGERY,. HX PACEMAKER ORIGINAL ONE 1980-HAS HAD MULT. GENERATOR CHANGES, MATHEW eye surgery and 01/11 vitrectomy. WOUND CENTER FOR LEFT FOOT WOUND, I&D RT AXILLA FOR STAPH INFECTION, PICC LINE. SX TO RELEASE FROZEN RT SHOULDER Past Anesthesia/Blood Transfusion Reactions: Previous Problems w/ Anesthesia Additional Past Anesthesia/Blood Transfusion Reaction / Comment(s): pt states she wakes up "slow and emotional-CRIES". Type of Cardiac Device: AICD Device Placement Date:: 2004 [employer] Past Psychological History: No Psychological Hx Reported Additional Psychological History / Comment(s): CYMBALTA, ELAVIL USED TO HELP WITH PAIN AND RESTLESS LEG Smoking Status: Never smoker Past Alcohol Use History: Rare Past Drug Use History: None Reported - Past Family History Mother Family Medical History: COPD Father Family Medical History: AICD/Pacemaker, Coronary Artery Disease (CAD), Diabetes Mellitus, Hypertension, Myocardial Infarction ([place]) Additional Family Medical History / Comment(s): [place] @ AGE 43 @ AGE 62 Brother(s) Family Medical History: Myocardial Infarction ([place]) Additional Family Medical History / Comment(s): HX [place] X 3 -1ST ONE @ AGE 39 Medications and Allergies Home Medications Medication Instructions Recorded Confirmed Type Atorvastatin [Lipitor] 20 mg PO HS 09/25/07/06/16 History rOPINIRole HCL [Requip] 1 mg PO QAM 09/25/13 07/06/16 History Cyanocobalamin [Vitamin B-12] 1,000 mcg PO DAILY 12/03/14 07/06/16 History DULoxetine HCL [Cymbalta] 60 mg PO BID 12/03/14 07/06/16 History Metoprolol Tartrate [Lopressor] 100 mg PO HS 12/03/14 07/06/16 History Omeprazole [PriLOSEC] 20 mg PO AC-BRKFST 12/03/14 07/06/16 History Cholecalciferol [Vitamin D3] 5,000 unit PO BID 09/10/15 07/06/16 History Dulaglutide [Trulicity] 1.5 mg SQ WE 09/10/15 07/06/16 History rOPINIRole HCL [Requip] 2 mg PO HS 11/28/15 07/06/16 History Amitriptyline HCl [Elavil] 40 mg PO HS 11/29/15 07/06/16 History Gabapentin 900 mg PO BID 11/29/15 07/06/16 History Metoprolol Tartrate [Lopressor] 50 mg PO QAM 11/29/15 07/06/16 History Furosemide [Lasix] 40 mg PO Q48H 03/30/16 07/06/16 History Metolazone [Zaroxolyn] 2.5 mg PO Q48H 03/30/16 07/06/16 History Albuterol Nebulized [Ventolin 2.5 mg INHALATION RT-DAILY PRN 04/04/16 07/06/16 History Nebulized] Cyclobenzaprine [Flexeril] 10 mg PO BID 04/04/16 07/06/16 History Ramipril [Altace] 5 mg PO DAILY 04/04/16 07/06/16 History Spironolactone [Aldactone] 25 mg PO DAILY 04/04/16 07/06/16 History valACYclovir [Valtrex] 500 mg PO DAILY 04/04/16 07/06/16 History Amitriptyline HCl [Elavil] 10 mg PO QAM 05/26/16 07/06/16 History Furosemide [Lasix] 80 mg PO Q48H 05/26/16 07/06/16 History [id number]-Rqbr-Tvdv [id number] 1 tab PO BID PRN 07/06/16 07/06/16 History [Excedrin] Insulin Aspart [NovoLOG Flexpen] See Protocol SQ AC-TID 07/06/16 07/06/16 History Insulin Glargine,Hum.rec.anlog 50 unit SQ DAILY 07/06/16 07/06/16 History [Basaglar Kwikpen U-100] Allergies Allergy/AdvReac Type Severity Reaction Status Date / Time ibuprofen [From Motrin] Allergy PT HAS Verified 07/06/16 17:42 WEAK HEART MUSCLES-HIGH DOSES CAUSES CHF Iodine and Iodide Containing Allergy Rash/Hives Verified 07/06/16 17:42 Produc meperidine HCl [From Demerol] AdvReac Unknown Vomiting Verified 07/06/16 17:42 Surgical - Exam Vital Signs Temp Pulse Resp BP Pulse Ox 98.9 F 90 18 117/55 96 07/06/16 17:07 07/06/16 17:07 07/06/16 17:07 07/06/16 17:07 07/06/16 17:07 - General well developed, no distress - Eyes PERRL - ENT normal pinna - Neck no masses - Respiratory normal expansion - Cardiovascular Rhythm: regular - Abdomen Mild right lower quadrant tenderness, there is no rebound or guarding Abdomen: soft Results - Labs 07/06/16 18:04 07/06/16 18:04 Abnormal Lab Results - Last 24 Hours (Table) 07/06/16 07/06/16 07/07/16 Range/Units 19:43 21:43 07:04 POC Glucose (mg/dL) 362 H 350 H 255 H (75-99) mg/dL - Imaging CT scan - abdomen: report reviewed (Evidence of cecal and appendiceal inflammation. Umbilical hernia, gallbladder with gallstones.) Assessment and Plan Plan: Chronic appendicitis. We'll perform laparoscopic appendectomy
[2016-07-07] MEDS ORDERED: IV FLUID CONTINUATION 1,000 ML IV ONE (09:39)
[2016-07-07] MEDS: ONDANSETRON 4 MG/2 ML VIAL IVP PRN ×2 (09:40→09:50)
[2016-07-07] MEDS ORDERED: HEPARIN SODIUM,PORCINE 5,000 UNIT/ML 1 ML VIAL SQ ONE ×2 (09:40→09:50)
[2016-07-07 09:48] LABS: Glucose,Whole Blood 179 mg/dL (75-99)
[2016-07-07] MEDS ORDERED: ePHEDrine 50 MG/ML 1 ML AMP ONE (09:52)
[2016-07-07] MEDS ORDERED: LIDOCAINE 1% INJ 10MG/ML (20 ML MDV) ONE (09:52)
[2016-07-07] MEDS ORDERED: MIDAZOLAM 2 MG/2 ML VIAL ONE (09:52)
[2016-07-07] MEDS ORDERED: ROCURONIUM BROMIDE 10 MG/ML 10 ML VIAL IV ONE (09:52)
[2016-07-07] MEDS ORDERED: SUCCINYLCHOLINE CHLORIDE 100 MG/5 ML SYR IV ONE (09:52)
[2016-07-07] MEDS ORDERED: GLYCOPYRROLATE 0.2 MG/ML 2 ML VIAL ONE (09:52)
[2016-07-07] MEDS ORDERED: PHENYLEPHRINE-0.9% NACL SYG 1 MG/10 ML SYRINGE ONE (09:52)
[2016-07-07] MEDS ORDERED: NEOSTIGMINE 1 MG/ML 10 ML VIAL ONE (09:52)
[2016-07-07] MEDS ORDERED: fentaNYL (PF) 50 MCG/ML 2 ML AMP ONE (09:52)
[2016-07-07] MEDS ORDERED: PROPOFOL 10 MG/ML 20 ML VIAL IV ONE (09:52)
[2016-07-07] MEDS ORDERED: BUPIVACAIN-EPI 0.25%-1:200,000 30 ML VIAL SQ ONE (10:11)
[2016-07-07] MEDS ORDERED: NALOXONE 0.4 MG/ML 1 ML VIAL IV PRN (10:29)
[2016-07-07] MEDS ORDERED: ACETAMINOPHEN TAB 325 MG TAB PO PRN (10:29)
[2016-07-07] MEDS ORDERED: HYDROcodone/APAP 5-325MG 1 EACH TAB PO PRN (10:29)
[2016-07-07] MEDS ORDERED: HYDROmorphone 1 MG/ML 1 ML SYRINGE IVP PRN (10:29)
--- NOTE | 2016-07-07 10:29 | P.OP ---
Date of Procedure: 07/07/16 Preoperative Diagnosis: Chronic appendicitis Postoperative Diagnosis: Chronic appendicitis Procedure(s) Performed: Laparoscopic appendectomy Anesthesia: NOMI Surgeon: Castillo Holley Estimated Blood Loss (ml): 5 Pathology: other (Appendix) Condition: stable Disposition: PACU Description of Procedure: HThe patient's placed on the operating table in the supine position. The patient received general anesthesia. The abdomen was prepped and draped in the usual sterile fashion. The skin was anesthetized 1% local Xylocaine at the trocar sites. Using an 11 blade the skin was incised at the umbilicus. The umbilicus was grasped with a Stefan clamp and then a Veress needle was placed into the peritoneal cavity. Position of the Veress needle was confirmed with positive drop test. After adequate insufflation a 5 mm trocar was placed into the peritoneal cavity. The abdomen was further insufflated. And then the laparoscope was placed in the peritoneal cavity. Next a 5 mm trocar was placed in the midline suprapubic position. And then a 10 mm trocar was placed in the midline epigastric position. The patient was rotated with the right side up and in Trendelenburg. The appendix was visualized. The appendix appeared to be inflamed. The appendix was grasped and then using the Harmonic scissors the mesoappendix was divided. A PDS Endoloop was then placed around the base of the appendix. And then the appendix was divided using Harmonic scissors. The appendix was placed into an Endo Catch and brought out through the 10 mm trocar site. The abdomen was irrigated. There is no bleeding seen. The trochars withdrawn. The skin was closed interrupted 3-0 Monocryl suture. Dermabond dressing was applied. Patient was sent to recovery room in stable condition.
[2016-07-07] MEDS: LACTATED RINGERS 1,000 ML IV ONE ×2 (10:49→11:58)
[2016-07-07 10:57] LABS: Glucose,Whole Blood 172 mg/dL (75-99)
[2016-07-07 11:42] VITALS: RESP 16
[2016-07-07] MEDS: KETOROLAC 30 MG/ML 1 ML VIAL IVP SCH ×3 (12:13→23:46)
[2016-07-07 12:27] LABS: Glucose,Whole Blood 197 mg/dL (75-99)
[2016-07-07 17:12] LABS: Glucose,Whole Blood 316 mg/dL (75-99)
[2016-07-07] MEDS: SODIUM CHLORIDE 0.9% 1,000 ML IV SCH (17:16)
[2016-07-07] MEDS ORDERED: METOLAZONE 2.5 MG TAB PO SCH (17:45)
[2016-07-07] MEDS: INSULIN GLARGINE 100 UNIT/ML 10 ML VIAL SQ SCH (17:50)
[2016-07-07] MEDS ORDERED: FUROSEMIDE 40 MG TAB PO SCH (21:15)
[2016-07-07] MEDS: FAMOTIDINE 20 MG TAB PO SCH (22:33)
[2016-07-07] MEDS: CYCLOBENZAPRINE 10 MG TAB PO SCH (22:39)
[2016-07-07] MEDS: DULoxetine HCL 60 MG CAPSULE.DR PO SCH (22:39)
[2016-07-07 22:42] LABS: Glucose,Whole Blood 223 mg/dL (75-99)
[2016-07-08] MEDS ORDERED: PANTOPRAZOLE 40 MG TABLET PO SCH (07:30)
[2016-07-08 07:55] LABS: Glucose,Whole Blood 73 mg/dL (75-99)
[2016-07-08] MEDS: KETOROLAC 30 MG/ML 1 ML VIAL IVP SCH (08:20)
[2016-07-08] MEDS: INSULIN LISPRO (humaLOG) 300 UNIT/3 ML VIAL SQ SCH (08:20)
[2016-07-08] MEDS: GABAPENTIN 300 MG CAP PO SCH (08:24)
--- NOTE | 2016-07-08 08:24 | CONS ---
DATE OF CONSULTATION: REASON FOR CONSULTATION: Advice regarding diabetes mellitus and other medical issues requested by Dr. Holley. HISTORY OF PRESENT ILLNESS: This 50-year-old woman with past history of asthma, diabetes mellitus, history of automatic implantable cardioverter defibrillator, history of diabetic gastroparesis, history of diabetic peripheral neuropathy, was having complaints of significant pain in the right lower quadrant for several years on recurrent basis. Yesterday because of increasing pain the patient came to [facility] and admitted for further evaluation and treatment. The patient also had abdomen and pelvis CT scan as a part of the work-up recently, which showed inflammation at the margin. Patient underwent laparoscopic appendectomy by Dr. Holley. There is no history of fever, rigors. No history of headache, loss of consciousness, seizures, chest pain, palpitations, hematochezia or melena present. PAST MEDICAL HISTORY: History of diabetes mellitus, asthma, history of fibromyalgia, surgery. Medications prior to admission include home medications are: 1. Valtrex 500 mg p.o. daily. 2. Requip 2 mg p.o. daily. 4. Aldactone 25 mg p.o. daily. 5. Altace 5 mg p.o. daily. 6. Prilosec 20 mg breakfast. 7. Lopressor 50 mg p.m. and 100 mg q.48 hours. 8. Zaroxolyn 2.5 mg q.48 hours. 10. Insulin glargine 15 units subcu daily. 11. Gabapentin 900 mg p.o. b.i.d. 12. Lasix 80 mg q.48 hours. 13. Lasix 40 mg p.o. q.48 hours. 14. Cymbalta 60 mg p.o. b.i.d. 15. Flexeril 10 mg p.o. daily. 16. Vitamin B 2000 mg p.o. daily. 17. Vitamin D3, 5000 daily. 18. Lipitor 20 mg q.h.s. 19. Excedrin 1 tablet p.o. b.i.d. p.r.n. 20. Elavil 10 mg q.a.m. and 40 mg q.h.s. 21. Ventolin 2.5 daily p.r.n. 22. Hydrocodone 7.5 q.6 p.r.n. 23. Colace 100 mg p.o. b.i.d. ALLERGIES: IBUPROFEN, IODINE AND DEMEROL. FAMILY HISTORY: History of COPD in the family. SOCIAL HISTORY: No history of smoking, no history of alcohol. REVIEW OF SYSTEMS: ENT: No diminished vision, no diminished hearing. CARDIOVASCULAR: NO angina. RESPIRATORY: No cough, hemoptysis. GI: As mentioned earlier. : As mentioned earlier. The patient had ovarian cyst. NERVOUS SYSTEM: No numbness or weakness. ALLERGY/IMMUNOLOGY: No asthma or hayfever. MUSCULOSKELETAL: As mentioned earlier. HEMATOLOGY: No history of anemia. ENDOCRINE: History of diabetes. No hypothyroidism. CONSTITUTIONAL: As mentioned earlier. DERMATOLOGY: Negative. RHEUMATOLOGY: Negative. PSYCHIATRY: As mentioned earlier. PHYSICAL EXAMINATION: Patient is alert and oriented x3. Pulse 77, blood pressure 116/66, respirations 16, temperature is normal, pulse ox 96% on room air. HEENT: Conjunctivae normal. Oral mucosa moist. NECK: No jugular venous distention. No carotid bruit. No lymph node enlargement. CARDIOVASCULAR: S1 and S2, muffled. No S3, no S4. RESPIRATORY: Breath sounds diminished at the bases. A few rhonchi. No crackles. ABDOMEN: Soft, status post surgery. No mass palpable. LEGS: No edema, no swelling. NERVOUS SYSTEM: Higher function as mentioned. Moves all four limbs. No focal motor deficits. LYMPHATIC: No lymphadenopathy in the neck, axillae or groin. SKIN: No ulcer, rash or bleeding. LABS: Accu-Cheks 190, 316. Other labs are WBC within normal limits. Sodium is 137. ASSESSMENT: 1. Status post laparoscopic appendectomy. 2. Diabetes mellitus type 2. 3. Hyponatremia. 4. History of asthma. 5. History of diabetes type 2. 6. History of fibromyalgia. 7. History of peripheral neuropathy. 8. History of diabetic gastroparesis. 9. History of AICD. 10. History of eye surgery. 11. PICC line. RECOMMENDATIONS AND DISCUSSION: In this 50-year-old woman who presented with multiple medical problems, will monitor the patient closely. Continue the current medications, continue symptomatic treatment. Otherwise, at this time, I recommend continuing the home medications and monitor blood sugars closely. Accu-Cheks and insulin coverage. Also recommend to resume the home medications and also will follow the patient closely with you. The patient may be asked to follow with primary physician in the outpatient setting. Thank you Dr. Holley for letting us participate in the care of this patient. KRISTEN
[2016-07-08] MEDS: CYCLOBENZAPRINE 10 MG TAB PO SCH (08:25)
[2016-07-08] MEDS: CHOLECALCIFEROL 1,000 UNIT TAB PO SCH (08:25)
[2016-07-08] MEDS: FAMOTIDINE 20 MG TAB PO SCH (08:25)
[2016-07-08] MEDS: DULoxetine HCL 60 MG CAPSULE.DR PO SCH (08:26)
[2016-07-08] MEDS: INSULIN GLARGINE 100 UNIT/ML 10 ML VIAL SQ SCH (08:26)
[2016-07-08] MEDS: METOPROLOL TARTRATE 50 MG TAB PO SCH (08:27)
[2016-07-08] MEDS ORDERED: valACYclovir 500 MG TAB PO SCH (09:00)
[2016-07-08] MEDS ORDERED: LISINOPRIL 20 MG TAB PO SCH (09:00)
[2016-07-08] MEDS ORDERED: ENOXAPARIN 40 MG/0.4 ML SYRINGE SQ SCH (09:00)
[2016-07-08] MEDS ORDERED: SPIRONOLACTONE 25 MG TAB PO SCH (09:00)
[2016-07-08 10:26] VITALS: BP 82/54; PULSE 78; TEMP 97.5
[2016-07-08] MEDS ORDERED: FUROSEMIDE 80 MG TAB PO SCH (12:00)
[2016-07-08 12:27] LABS: Glucose,Whole Blood 90 mg/dL (75-99)
--- NOTE | 2016-07-08 18:21 | P.DS ---
Providers Date of admission: 07/06/16 18:19 Expected date of discharge: 07/08/16 Attending physician: Castillo Holley Consults: 07/07/16 10:29 Consult Physician Routine Consulting Provider: Romy Galdamez Consult Reason/Comments: Medical management Do you want consulting provider notified?: Yes Primary care physician: [facility] Course: Patient is a 50-year-old female admitted with complaints of right lower quadrant pain. Patient had a previous admission for appendicitis in November. At that time she was treated with IV antibiotics and no surgical procedures were performed. CAT scan of abdomen and pelvis suggestive of chronic appendicitis. Patient was taken for laparoscopic appendectomy. Patient tolerated procedure well. Patient had an uneventful postoperative course. Patient was deemed stable for discharge to home with follow-up in the outpatient setting. Discharge diagnoses: Chronic appendicitis status post laparoscopic appendectomy. The above impression and plan have been discussed and directed by Dr. Hylton. Aleshia KENNEY acting as scribe for Dr. Holley. Procedures: Laparoscopic appendectomy Patient Condition at Discharge: Good Plan - Discharge Summary New Discharge Prescriptions: Docusate [Colace] 100 mg PO BID #20 capsule HYDROcodone/APAP 7.5-325MG [[place] 7.5-325] 1 tab PO Q6HR PRN #28 tab PRN Reason: Pain Discharge Medication List Atorvastatin [Lipitor] 20 mg PO HS 09/25/13 [History] rOPINIRole HCL [Requip] 1 mg PO QAM 09/25/13 [History] Cyanocobalamin [Vitamin B-12] 1,000 mcg PO DAILY 12/03/14 [History] DULoxetine HCL [Cymbalta] 60 mg PO BID 12/03/14 [History] Metoprolol Tartrate [Lopressor] 100 mg PO HS 12/03/14 [History] Omeprazole [PriLOSEC] 20 mg PO AC-BRKFST 12/03/14 [History] Cholecalciferol [Vitamin D3] 5,000 unit PO BID 09/10/15 [History] Dulaglutide [Trulicity] 1.5 mg SQ WE 09/10/15 [History] rOPINIRole HCL [Requip] 2 mg PO HS 11/28/15 [History] Amitriptyline HCl [Elavil] 40 mg PO HS 11/29/15 [History] Gabapentin 900 mg PO BID 11/29/15 [History] Metoprolol Tartrate [Lopressor] 50 mg PO QAM 11/29/15 [History] Furosemide [Lasix] 40 mg PO Q48H 03/30/16 [History] Metolazone [Zaroxolyn] 2.5 mg PO Q48H 03/30/16 [History] Albuterol Nebulized [Ventolin Nebulized] 2.5 mg INHALATION RT-DAILY PRN [History] Cyclobenzaprine [Flexeril] 10 mg PO BID 04/04/16 [History] Ramipril [Altace] 5 mg PO DAILY 04/04/16 [History] Spironolactone [Aldactone] 25 mg PO DAILY 04/04/16 [History] valACYclovir [Valtrex] 500 mg PO DAILY 04/04/16 [History] Amitriptyline HCl [Elavil] 10 mg PO QAM 05/26/16 [History] Furosemide [Lasix] 80 mg PO Q48H 05/26/16 [History] Warnlzj-Mfvw-Oiqy [phone] [Excedrin] 1 tab PO BID PRN 07/06/16 [History] Insulin Aspart [NovoLOG Flexpen] See Protocol SQ AC-TID 07/06/16 [History] Insulin Glargine,Hum.rec.anlog [Basaglar Kwikpen U-100] 50 unit SQ DAILY [History] Docusate [Colace] 100 mg PO BID #20 capsule 07/07/16 [Rx] HYDROcodone/APAP 7.5-325MG [[place] 7.5-325] 1 tab PO Q6HR PRN #28 tab 07/07/16 [ Rx] Follow up Appointment(s)/Referral(s): Anjel Vann MD [Primary Care Provider] - 1 Week (Office closed. Patient to call and schedule follow up appointment.) Castillo Holley MD [STAFF PHYSICIAN] - 07/19/16 2:30 pm Patient Instructions/Handouts: Laparoscopic Appendectomy (DC) Activity/Diet/Wound Care/Special Instructions: No heavy lifting, pushing, or pulling items greater than 10 pounds. Regular diet Shower daily, no soaking in bath tubs, pools, or hot tubs. No driving while taking pain medication. Notify surgeon with any signs or symptoms of infection, increased pain, or not tolerating diet. Discharge Disposition: HOME SELF-CARE
--- NOTE | 2016-07-09 10:28 | PN ---
DATE OF SERVICE: 07/08/2016 This 50-year-old woman was admitted after laparoscopic appendectomy is improved significantly. No chest pain, no palpitations. No fever. On exam, alert and oriented x3. Pulse is 79, blood pressure 92/52, respiratory rate 16, temperature 97.2, pulse ox 90% on room air. HEENT: Conjunctivae normal. NECK: No jugular venous distention. CARDIOVASCULAR: S1 and S2, muffled. RESPIRATORY: Breath sounds diminished at the bases. No rhonchi, no crackles. ABDOMEN: Soft, status post recent surgery. LEGS: No edema, no swelling. NERVOUS SYSTEM: No focal deficits. LABS: Accu-Cheks 223, 73, 90. Other labs are noted. ASSESSMENT: 1. Status post laparoscopic appendectomy. 2. Diabetes mellitus type 2. 3. Relative hypotension. 4. Hyponatremia. 5. History of asthma. 6. History of diabetes mellitus type 2. 7. History of fibromyalgia. 8. History of peripheral neuropathy. 9. History of diabetic gastroparesis. 10. History of automatic implantable cardiovascular defibrillator. 11. History of eye surgery. RECOMMENDATIONS AND DISCUSSION: In this 50-year-old woman who presented with multiple medical issues, at this time I would recommend to continue current medications, symptomatic treatment. Otherwise, closely follow with primary physician in the outpatient setting. Repeat labs. Further recommendations to follow. Closely follow with Surgery. The rest of the recommendations per Surgery.
[2016-07-13] MEDS ORDERED: NON-FORMULARY DRUG (Dulaglutide [Trulicity] 1.5 MG) SQ SCH (17:43)
== END 2016-07-08 14:35 | disposition home or self-care (01) ==
LOC: EC 15:42 → 3SUR 18:19
PROVIDERS: ADMIT Surgery; ATTEND Surgery
DX: K36 Other appendicitis (principal); Z79.899 Other long term (current) drug therapy; Z79.4 Long term (current) use of insulin; Z79.84 Long term (current) use of oral hypoglycemic drugs; Z79.1 Long term (current) use of non-steroidal anti-inflammatories (NSAID); Z88.5 Allergy status to narcotic agent; Z88.3 Allergy status to other anti-infective agents; J45.909 Unspecified asthma, uncomplicated; M79.7 Fibromyalgia; G62.9 Polyneuropathy, unspecified; E11.43 Type 2 diabetes mellitus with diabetic autonomic (poly)neuropathy; K31.84 Gastroparesis; E11.42 Type 2 diabetes mellitus with diabetic polyneuropathy; H57.9 Unspecified disorder of eye and adnexa; Z95.810 Presence of automatic (implantable) cardiac defibrillator; G25.81 Restless legs syndrome; Z82.5 Family history of asthma and other chronic lower respiratory diseases; Z82.49 Family history of ischemic heart disease and other diseases of the circulatory system; E87.1 Hypo-osmolality and hyponatremia; I95.9 Hypotension, unspecified; A64 Unspecified sexually transmitted disease; F39 Unspecified mood [affective] disorder
CPT/HCPCS: 44970; 96367; 96365; 99284; 36415; 81025; 88304; 80053; 83036; 83605; 85025; 81003; G0378 ×3; J2250; J2270; J1644; J2710; J2405; J2001; J1650; J3010; J1885; J2543; J2370; J0330; J2704

== ENCOUNTER → 2016-07-06 | Outpatient (CLI) | payer BC ==
[2016-07-06 08:54] LABS: Blood Urea Nitrogen 34 mg/dL (7-17); Non-African American GFR(MDRD) >60 (>60 ml/min/1.73 sqM)
--- NOTE | 2016-07-06 11:29 | CT ---
EXAMINATION TYPE: CT abdomen pelvis w con DATE OF EXAM: 07/06/2016 9:26 AM COMPARISON: 12/11/2015 HISTORY: 50-year-old female with RLQ pain TECHNIQUE: Contiguous axial scanning of the abdomen and pelvis following administration of 100 ml Omn ipaque 300 IV contrast. Delayed images through the kidneys and coronal/sagittal reconstructions perf ormed. The patient was premedicated due to iodinated contrast allergy. CT DLP: 2469.1 mGycm Automated exposure control for dose reduction was used. FINDINGS: AICD leads are seen. Heart is borderline enlarged without pericardial effusion. Strandy atelectasis i n the lower lungs without pleural effusion. Tiny hiatal hernia. No focal liver lesion. A few tiny calculi dependent within the gallbladder. No abnormal gallbladder d istention. Portal venous system is patent. No biliary ductal dilatation. Small diverticulum of the se cond portion of the duodenum projecting into the pancreatic head region. Adrenal glands, kidneys, spleen, and atrophic pancreas show no gross abnormality. No dilated small bowel, free fluid, or free air. There is a retained catheter that courses along the left anterior subcutaneous fat probably an abando nishi LE[employer]ING DIRECT[employer] shunt catheter. It terminates within the subcutaneous fat at the left mid abdominal level. No mesenteric or retroperitoneal lymphadenopathy. Small fatty umbilical hernia. There is focal thickening at the inferior cecal margin, possible appendiceal remnant with mild surrou nding fat stranding, axial image 54 and coronal images 50 through 53. Oral contrast has progressed and in the transverse colon. There is moderate stool burden without fracisco colonic inflammatory change. Marked distention of the urinary bladder measuring up to 16.1 cm craniocaudal nearly to the umbilicus . Uterus and ovaries are visualized. No abnormal fluid collection in the pelvis or pelvic lymphadenop athy. Bones: Mild degenerative changes at the hips. Disc/endplate degenerative change at L5-S1. No osseous destructive process. IMPRESSION: 1. MILD SOFT TISSUE THICKENING WITH MILD SURROUNDING INFLAMMATION AT THE INFERIOR CECAL MARGIN THAT S EEMS TO INVOLVE A SHORT STUBBY APPENDIX. IF THERE HAS BEEN PRIOR APPENDECTOMY, THIS COULD REPRESENT M ILD ACUTE INFLAMMATION OF THE A RESIDUAL APPENDICEAL STUMP. NO ABSCESS OR FREE AIR. 2. MARKED DISTENTION OF THE URINARY BLADDER UP TO THE UMBILICUS. CORRELATE TO ENSURE THAT THIS REPRES ENTS VOLUNTARY RETENTION. 3. CHOLELITHIASIS AND SMALL FATTY UMBILICAL HERNIA. 4. MODERATE STOOL BURDEN.
== END | disposition home or self-care (01) ==
LOC: RADCTMAIN 07:38
PROVIDERS: ATTEND Surgery
DX: K36 Other appendicitis (principal); K80.20 Calculus of gallbladder without cholecystitis without obstruction; N32.89 Other specified disorders of bladder; K42.9 Umbilical hernia without obstruction or gangrene; M79.89 Other specified soft tissue disorders
CPT/HCPCS: 82565; 84520; 74177; 36415; Q9967

== ENCOUNTER 2016-08-04 13:33 | Day surgery (SDC) | payer BC ==
[2016-08-01 11:44] VITALS: BMI 41.8
[~2016-08-04 13:33] MED LIST changes: -SODIUM CHLORIDE 0.9% 1,000 ML IV SCH; +ceFAZolin 1,000 MG in SODIUM CHLORIDE 0.9% IRRIGATIO 250 ML IRRIGATION ONE; +ceFAZolin 2 GM in SODIUM CHLORIDE 0.9% 100 ML IVPB ONE
[2016-08-04 14:14] LABS: Basophils # (A) 0.1 k/uL (0-0.2); Basophils % (A) 1 %; CH 30.8; CHCM 32.7; Eosinophils # (A) 0.3 k/uL (0-0.7); Eosinophils % (A) 3 %; HCT 40.5 % (34.0-46.0); HDW 2.51; HGB 12.9 gm/dL (11.4-16.0); Luc # (Auto) 0.23; Luc % (Auto) 2; Lymphocytes # (A) 3.1 k/uL (1.0-4.8); Lymphocytes % (A) 27 %; MCH 30.2 pg (25.0-35.0); MCHC 31.9 g/dL (31.0-37.0); MCV 94.7 fL (80.0-100.0); Mean Platelet Volume 7.2; Monocytes # (A) 0.5 k/uL (0-1.0); Monocytes % (A) 5 %; Neutrophils # (A) 7.1 k/uL (1.3-7.7); Neutrophils % (A) 63 %; RBC 4.27 m/uL (3.80-5.40); WBC 11.4 k/uL (3.8-10.6); WBC (Perox) 10.52
[2016-08-04] MEDS: SODIUM CHLORIDE 0.9% 1,000 ML IV SCH (14:14)
[2016-08-04 14:16] LABS: Glucose,Whole Blood 171 mg/dL (75-99)
[2016-08-04] MEDS ORDERED: SODIUM CHLORIDE 0.9% 100 ML BAG ONE (14:55)
[2016-08-04] MEDS ORDERED: ceFAZolin 1,000 MG VIAL ONE (14:55)
[2016-08-04] MEDS ORDERED: fentaNYL (PF) 50 MCG/ML 2 ML AMP ONE (14:55)
[2016-08-04] MEDS ORDERED: PROPOFOL 10 MG/ML 20 ML VIAL IV ONE (14:55)
[2016-08-04] MEDS ORDERED: MIDAZOLAM 2 MG/2 ML VIAL ONE (14:55)
[2016-08-04] MEDS ORDERED: LIDOCAINE 2% INJ 20 MG/ML SQ ONE (15:23)
[2016-08-04] MEDS ORDERED: ceFAZolin 1,000 MG VIAL IV ONE (15:33)
--- NOTE | 2016-08-04 15:35 | P.PCN ---
Preoperative Diagnosis: Transvenous temporary pacing procedure Indication for the procedure: Severe underlying bradycardia secondary to complete heart block Patient was brought to the EP lab in a fasting state. Written informed consent was obtained prior to the procedure. The right groin was prepped and draped as a protocol. A 6-Swazi sheath was placed in the right femoral vein. Via this, a temporary pacing catheter was placed in the right ventricle. Thresholds were interrogated. Temporary pacing was performed through the rest of the procedure. At the end of the entire procedure, the TVP was removed. The sheath was removed and hemostasis was assured. Patient tolerated the procedure well without any acute complications. Procedure performed Transvenous temporary pacing Postoperative Diagnosis: Procedure(s) Performed: Implants: Anesthesia: MAC, local Indications for Procedure: Operative Findings: Description of Procedure:
[2016-08-04] MEDS ORDERED: LIDOCAINE 1% INJ 10MG/ML (20 ML MDV) SQ ONE (15:50)
[2016-08-04] MEDS ORDERED: ACETAMINOPHEN TAB 325 MG TAB PO PRN (16:46)
[2016-08-04] MEDS ORDERED: FUROSEMIDE 20 MG TAB PO SCH (17:00)
--- NOTE | 2016-08-04 17:08 | PCN ---
DATE OF PROCEDURE: DATE OF CONSULTATION: Zaira Clark is a 50-year-old female with a history of severe cardiomyopathy, nonischemic in nature. Underlying congenital heart disease, underlying complete heart block and class II to III heart failure whose device is at [employer] for normal battery depletion. She was brought in for ICD generator change. ( ) replacement. The left pectoral area was prepped and draped as per protocol and 1% lidocaine was used for local anesthesia. A 4 cm incision was made directly over the previous surgical site and carried down to the level of the pectoralis muscle. The generator was explanted. Partial capsulectomy was performed. The leads were interrogated and the lead function was pristine. The old generator was explanted. The new generator was implanted and the ( ) procedure. The new generator implanted was a [employer] DynaGen EL ICD dual chamber device, model number D153, serial number [id number]. The old generator was a Medtronic [id number]. Serial number [id number]. The atrial pacing threshold was 1.3 mV. Pacing threshold was 0.8 volts at 0.4 ms, pacing impedance of 452 ohms. The RV pacing threshold 0.6 v at 0.4 ms, pacing impedance of 593 ohms, shock impedance 60 ohms. The device was then programmed to immediate RIT program and pacing DDD 50 to 130 ppm. Patient tolerated the procedure well without any acute complications.
[2016-08-04 17:29] LABS: Glucose,Whole Blood 124 mg/dL (75-99)
[2016-08-04] MEDS ORDERED: ACETAMINOPHEN IV (For NPO) 1,000 MG in EMPTY BAG 1 BAG IVPB ONE (17:30)
[2016-08-04] MEDS: LACTATED RINGERS 1,000 ML IV SCH (17:48)
[2016-08-04] MEDS ORDERED: AMITRIPTYLINE HCL 10 MG TAB PO SCH (21:00)
[2016-08-04] MEDS ORDERED: METOPROLOL TARTRATE 50 MG TAB PO SCH (21:00)
[2016-08-04] MEDS ORDERED: ATORVASTATIN 20 MG TAB PO SCH (21:00)
[2016-08-04] MEDS: DULoxetine HCL 60 MG CAPSULE.DR PO SCH (21:43)
[2016-08-04] MEDS: GABAPENTIN 300 MG CAP PO SCH (21:43)
[2016-08-04] MEDS: CYCLOBENZAPRINE 10 MG TAB PO SCH (21:43)
[2016-08-04] MEDS: ceFAZolin 2 GM in SODIUM CHLORIDE 0.9% 100 ML IVPB SCH (21:46)
[2016-08-04] MEDS: INSULIN LISPRO (humaLOG) 300 UNIT/3 ML VIAL SQ SCH (22:04)
[2016-08-04 22:05] LABS: Glucose,Whole Blood 130 mg/dL (75-99)
[2016-08-04 22:14] VITALS: RESP 16
[2016-08-05] MEDS: ceFAZolin 2 GM in SODIUM CHLORIDE 0.9% 100 ML IVPB SCH ×3 (02:48→13:12)
[2016-08-05] MEDS: HYDROcodone/APAP 5-325MG 1 EACH TAB PO PRN ×2 (06:46→13:26)
[2016-08-05 07:21] LABS: Glucose,Whole Blood 159 mg/dL (75-99)
--- NOTE | 2016-08-05 08:29 | PN ---
Zaira Clark is a 50-year-old female with complete heart block, severe cardiomyopathy, ejection fraction 30%, class II heart failure, congenital heart disease who has dual-chamber ICD that is at [facility] secondary to normal battery depletion. She underwent a dual-chamber ICD generator change yesterday. A TPV was also placed. Her groin has healed well. She has no chest pain. No dizziness, lightheadedness, or palpitations. Her rhythm shows paced beats on telemetry. ICD site has healed well. There is no hematoma. Heart sounds are normal. No murmur. No gallop. Breath sounds are normal. IMPRESSION: 1. Severe cardiomyopathy secondary to congenital heart disease. 2. Complete heart block. 3. Status post dual chamber ICD generator change. PLAN: Discharge home after IV antibiotics. Continue all other current medications. Other medical diagnosis include diabetes.
[2016-08-05] MEDS ORDERED: valACYclovir 500 MG TAB PO SCH (09:00)
[2016-08-05] MEDS ORDERED: LISINOPRIL 20 MG TAB PO SCH (09:00)
[2016-08-05] MEDS ORDERED: SPIRONOLACTONE 25 MG TAB PO SCH (09:00)
[2016-08-05] MEDS ORDERED: INSULIN GLARGINE 100 UNIT/ML 10 ML VIAL SQ SCH (09:00)
[2016-08-05] MEDS ORDERED: FUROSEMIDE 80 MG TAB PO SCH (09:00)
[2016-08-05] MEDS ORDERED: AMITRIPTYLINE HCL 10 MG TAB PO SCH (09:00)
[2016-08-05] MEDS ORDERED: METOPROLOL TARTRATE 50 MG TAB PO SCH (09:00)
[2016-08-05] MEDS: LACTATED RINGERS 1,000 ML IV SCH (09:17)
[2016-08-05] MEDS: SODIUM CHLORIDE 0.9% 1,000 ML IV SCH ×2 (09:18)
[2016-08-05] MEDS: INSULIN LISPRO (humaLOG) 300 UNIT/3 ML VIAL SQ SCH ×2 (09:19→12:47)
[2016-08-05] MEDS: CYCLOBENZAPRINE 10 MG TAB PO SCH (09:20)
[2016-08-05] MEDS: GABAPENTIN 300 MG CAP PO SCH (09:20)
[2016-08-05] MEDS: DULoxetine HCL 60 MG CAPSULE.DR PO SCH (09:20)
[2016-08-05 12:08] LABS: Glucose,Whole Blood 269 mg/dL (75-99)
[2016-08-05 12:17] VITALS: BP 105/66; PULSE 83; TEMP 98.1
[2016-08-10] MEDS ORDERED: NON-FORMULARY DRUG (Dulaglutide [Trulicity] 1.5 MG) SQ SCH (16:47)
== END 2016-08-05 14:51 | disposition home or self-care (01) ==
LOC: CATHEP 13:33 → 3OBS 16:40 → CATHEP 08-05 14:51
PROVIDERS: ATTEND Internal Medicine Clinical Cardiac Electrophysiology
DX: Z45.02 Encounter for adjustment and management of automatic implantable cardiac defibrillator (principal); I44.2 Atrioventricular block, complete; I50.23 Acute on chronic systolic (congestive) heart failure; I42.8 Other cardiomyopathies; I10 Essential (primary) hypertension; E78.2 Mixed hyperlipidemia; Q21.0 Ventricular septal defect; J45.909 Unspecified asthma, uncomplicated; K21.9 Gastro-esophageal reflux disease without esophagitis; E11.43 Type 2 diabetes mellitus with diabetic autonomic (poly)neuropathy; K31.84 Gastroparesis; M79.7 Fibromyalgia; Z82.49 Family history of ischemic heart disease and other diseases of the circulatory system; Z79.82 Long term (current) use of aspirin; Z79.4 Long term (current) use of insulin; Z79.899 Other long term (current) drug therapy; Z88.6 Allergy status to analgesic agent; Z88.5 Allergy status to narcotic agent; Z91.041 Radiographic dye allergy status
CPT/HCPCS: 33263; 85025; 84703; C1894; C1769 ×2; C1730; C1721; J2001 ×2; J0690 ×3; J0131

== ENCOUNTER → 2016-11-28 | Outpatient (CLI) | payer BC ==
[2016-11-28 13:58] VITALS: BP 98/48; PULSE 96; RESP 16; TEMP 97.9; BMI 43.0
[2016-11-28 14:45] LABS: EKG EKG PERFORMED
[2016-11-28 15:02] LABS: CHCM 31.6; HCT 39.2 % (34.0-46.0); HDW 2.49; HGB 12.6 gm/dL (11.4-16.0); MCH 30.7 pg (25.0-35.0); MCHC 32.1 g/dL (31.0-37.0); MCV 95.6 fL (80.0-100.0); Mean Platelet Volume 7.3; RDW 13.6 % (11.5-15.5)
--- NOTE | 2016-11-28 15:19 | P.HPBAR ---
Bariatric H&P - History & Physicial H&P Date: 11/28/16 History & Physicial: Visit/CC: sleeve consult Patient initial contact: Initial weight: 99.972 kg Initial weight in pounds: 220.40 Height: 5 ft Initial BMI: 43.0 Last weight: Current weight: 99.972 kg Current weight in pounds: 220.40 Current BMI: 43.0 Bolt body weight (based on NIH guidelines): 45.359 kg Excess body weight loss: 0.0% The patient is a 51 year-old F who presents for Bariatric Assessment. Patient presents today for sleeve gastrectomy consultation. She has had lifetime problems obesity. Her BMI is 43. Past Medical History Past Medical History: Asthma, Diabetes Mellitus, Eye Disorder, Fibromyalgia, GERD/Reflux, Hyperlipidemia, Hypertension Additional Past Medical History / Comment(s): Type 2 DM, SEE DR MCGILL H&P, MATHEW LEGS NEUROPATHY, FX OF LEFT FOOT, Diabetic Gastroparesis. TAKES MEDICATION MAINTENENCE FOR STD, DIABETIC RETINOPATHY and LEFT cataract removal plus laser and vitrectomy x2, /Laser to right ey, EDEMA TO RT LEG, WOUND TO BOTTOM RT GREAT TOE. RECENT WOUND/INJURY TO RT LOMAS, RLS, History of Any Multi-Drug Resistant Organisms: None Reported Past Surgical History: Adenoidectomy, AICD, Heart Catheterization, Orthopedic Surgery, Pacemaker, Tonsillectomy Additional Past Surgical History / Comment(s): SINUS SURGERY, DEVIATED SEPTUM SURGERY,. HX PACEMAKER ORIGINAL ONE 1980-HAS HAD MULT. GENERATOR CHANGES, MATHEW eye surgery and 01/11 vitrectomy. [facility] FOR LEFT FOOT WOUND, I&D RT AXILLA FOR STAPH INFECTION, PICC LINE. SX TO RELEASE FROZEN RT SHOULDER, COLONOSCOPY, Ventricular septum repair at age 3, Past Anesthesia/Blood Transfusion Reactions: Previous Problems w/ Anesthesia Additional Past Anesthesia/Blood Transfusion Reaction / Comm: pt states she wakes up "slow and emotional-CRIES". Type of Cardiac Device: Permanent Pacemaker, AICD Device Placement Date:: 2004 [employer] Past Psychological History: No Psychological Hx Reported Additional Psychological History / Comment(s): CYMBALTA, ELAVIL USED TO HELP WITH PAIN AND RESTLESS LEG Smoking Status: Never smoker Past Alcohol Use History: Rare Past Drug Use History: None Reported - Past Family History Mother Family Medical History: Cancer, COPD Additional Family Medical History / Comment(s): lung cancer at age 73 Father Family Medical History: AICD/Pacemaker, Coronary Artery Disease (CAD), Diabetes Mellitus, Hypertension, Myocardial Infarction ([place]) Additional Family Medical History / Comment(s): [place] @ AGE 43 @ AGE 62 Brother(s) Family Medical History: Myocardial Infarction ([place]) Additional Family Medical History / Comment(s): HX [place] X 3 -1ST ONE @ AGE 39 Surgical - Exam Vital Signs Temp Pulse Resp BP 97.9 F 96 16 98/48 11/28/16 13:42 11/28/16 13:42 11/28/16 13:42 11/28/16 13:42 - General well developed, no distress - Eyes PERRL - ENT normal pinna - Neck no masses - Respiratory normal expansion - Cardiovascular Rhythm: regular - Abdomen Abdomen: soft, non tender Results - Labs 11/28/16 14:39 Abnormal Lab Results - Last 24 Hours (Table) 11/28/16 Range/Units 14:39 WBC 11.0 H (3.8-10.6) k/uL Bariatric Assessment & Plan Plan: The patient has multiple comorbidities related to morbid obesity. We discussed the gastric sleeve and the patient. I went over the risks and benefits procedure. I discussed the risk of gastric staple line disruption, bleeding or scarring. The patient will follow-up in approximately 3 months. She'll be scheduled for EGD. Bariatric Checklist Checklist: Plan: Checklist: EGD: 1. Hiatal hernia: 2. H. Pylori: HgbA1c: Vitamin D: Smoking: Never smoker Primary care physician referral: hossein penaloza Psychiatry clearance: Cardiology clearance: Sleep study: Diet journal: VTE risk score: VTE risk level: Rehab needs at discharge:
[2016-11-28 15:36] LABS: ALT 33 U/L (9-52); AST 21 U/L (14-36); Alkaline Phosphatase 233 U/L (38-126); Anion Gap 11 mmol/L; Blood Urea Nitrogen 33 mg/dL (7-17); Calcium 9.5 mg/dL (8.4-10.2); Carbon Dioxide 29 mmol/L (22-30); Chloride 94 mmol/L (98-107); Glucose 227 mg/dL (74-99); Non-African American GFR(MDRD) >60 (>60 ml/min/1.73 sqM); Potassium 5.1 mmol/L (3.5-5.1); Sodium 134 mmol/L (137-145); Total Bilirubin 0.4 mg/dL (0.2-1.3); Total Protein 7.1 g/dL (6.3-8.2)
[2016-11-28 16:25] LABS: Vitamin B12 825 pg/mL (239-931)
== END | disposition home or self-care (01) ==
LOC: BARWHC3 13:24
PROVIDERS: ATTEND Surgery
DX: Z48.815 Encounter for surgical aftercare following surgery on the digestive system (principal); E66.01 Morbid (severe) obesity due to excess calories; Z68.41 Body mass index [BMI] 40.0-44.9, adult; E55.9 Vitamin D deficiency, unspecified
CPT/HCPCS: 36415; 80053; 82306; 82607; 83036; 85027; 93005; 99211

== ENCOUNTER 2016-12-05 09:06 | Day surgery (SDC) | payer BC ==
[2016-11-30 16:28] VITALS: BMI 43.0
[2016-12-05 09:37] VITALS: TEMP 97.6
[2016-12-05] MEDS ORDERED: LIDOCAINE 1% 20 ML VIAL (10MG/ML) FOR IV START INTRADERMA ONE (09:40)
[2016-12-05] MEDS: LACTATED RINGERS 1,000 ML IV SCH ×2 (09:40→09:47)
[2016-12-05 09:44] LABS: Glucose,Whole Blood 192 mg/dL (75-99)
[2016-12-05] MEDS ORDERED: PROPOFOL 10 MG/ML 20 ML VIAL IV ONE (09:57)
--- NOTE | 2016-12-05 09:57 | P.GSHP ---
History of Present Illness H&P Date: 12/05/16 Chief Complaint: GERD, morbid obesity This is a 51-year-old female presents today for EGD. She's had issues with GERD. Patient is morbidly obese with BMI 43. Past Medical History Past Medical History: Asthma, Diabetes Mellitus, Eye Disorder, Fibromyalgia, GERD/Reflux, Hyperlipidemia, Hypertension Additional Past Medical History / Comment(s): Type 2 DIABETES, NEUROPATHY FEET, GENITAL HERPES., FX OF LEFT FOOT,GASTROPARESIS, , DIABETIC RETINOPATHY, HX OF WOUNDS TREATED AT [facility]- DENIES WOUNDS NOW., INJURY TO RT LOMAS- STATES AREA IS RED BUT NO OPEN SORE., , RLS, HX OF TACHYCARDIA, BACK PAIN WITH PINCHED L-5 & S-1, STATES C-4 AND C-5 FUSED FROM SCAR TISSUE. , CAN ONLY WALK SHORT DISTANCES- USES WALKER WITH WHEELS AND SEAT AND WHEELCHAIR., PACEMAKER/ AICD- [employer] History of Any Multi-Drug Resistant Organisms: None Reported Past Surgical History: AICD, Appendectomy, Heart Catheterization, Orthopedic Surgery, Pacemaker, Tonsillectomy Additional Past Surgical History / Comment(s): SINUS SURGERY, DEVIATED SEPTUM. HX PACEMAKER ORIGINAL ONE 1980-HAS HAD MULT. GENERATOR CHANGES, MATHEW eye surgery and vitrectomy. WOUND CENTER FOR LEFT FOOT WOUND, I&D RT AXILLA FOR STAPH INFECTION, PICC LINE. SX TO RELEASE FROZEN RT SHOULDER, COLONOSCOPY, Ventricular septum repair at age 3, Past Anesthesia/Blood Transfusion Reactions: Previous Problems w/ Anesthesia Additional Past Anesthesia/Blood Transfusion Reaction / Comment(s): pt states she wakes up "slow and emotional-CRIES". Type of Cardiac Device: Permanent Pacemaker, AICD Device Placement Date:: 08/04/2016 [employer]. Past Psychological History: Anxiety, Depression Additional Psychological History / Comment(s): . Smoking Status: Never smoker Past Alcohol Use History: Rare Past Drug Use History: None Reported - Past Family History Mother Family Medical History: Cancer, COPD Additional Family Medical History / Comment(s): lung cancer at age 73 Father Family Medical History: AICD/Pacemaker, Coronary Artery Disease (CAD), Diabetes Mellitus, Hypertension, Myocardial Infarction ([place]) Additional Family Medical History / Comment(s): [place] @ AGE 43 @ AGE 62 Brother(s) Family Medical History: Myocardial Infarction ([place]) Additional Family Medical History / Comment(s): HX [place] X 3 -1ST ONE @ AGE 39 Medications and Allergies Home Medications Medication Instructions Recorded Confirmed Type Atorvastatin [Lipitor] 20 mg PO HS 09/25/13 12/05/16 History rOPINIRole HCL [Requip] 1 mg PO QAM 09/25/13 12/05/16 History DULoxetine HCL [Cymbalta] 60 mg PO BID 12/03/14 12/05/16 History Metoprolol Tartrate [Lopressor] 100 mg PO HS 12/03/14 12/05/16 History Omeprazole [PriLOSEC] 20 mg PO AC-BRKFST 12/03/14 12/05/16 History Cholecalciferol [Vitamin D3] 2,000 unit PO BID 09/10/15 12/05/16 History Dulaglutide [Trulicity] 1.5 mg SQ FR 09/10/15 12/05/16 History rOPINIRole HCL [Requip] 2 mg PO HS 11/28/15 12/05/16 History Amitriptyline HCl [Elavil] 40 mg PO HS 11/29/15 12/05/16 History Gabapentin 1,200 mg PO DIRECTED 11/29/15 12/05/16 History Metoprolol Tartrate [Lopressor] 50 mg PO QAM 11/29/15 12/05/16 History Cyclobenzaprine [Flexeril] 10 mg PO BID PRN 04/04/16 12/05/16 History Ramipril [Altace] 5 mg PO DAILY 04/04/16 12/05/16 History Spironolactone [Aldactone] 25 mg PO DAILY 04/04/16 12/05/16 History valACYclovir [Valtrex] 500 mg PO DAILY 04/04/16 12/05/16 History Amitriptyline HCl [Elavil] 10 mg PO QAM 05/26/16 12/05/16 History Furosemide [Lasix] 80 mg PO DAILY 05/26/16 12/05/16 History Insulin Aspart [NovoLOG Flexpen] 1 dose SQ ACHS PRN 07/06/16 12/05/16 History Insulin Glargine,Hum.rec.anlog 60 unit SQ QAM 07/06/16 12/05/16 History [Basaglar Kwikpen U-100] Aspirin 325 mg PO DAILY 11/30/16 12/05/16 History Potassium Chloride [Klor-Con 10] 10 meq PO DAILY 11/30/16 12/05/16 History Allergies Allergy/AdvReac Type Severity Reaction Status Date / Time ibuprofen [From Motrin] Allergy PT HAS Verified 12/05/16 09:40 WEAK HEART MUSCLES-HIGH DOSES CAUSES CHF Iodine and Iodide Containing Allergy Rash/Hives Verified 12/05/16 09:40 Produc meperidine HCl [From Demerol] AdvReac Unknown Vomiting Verified 12/05/16 09:40 Surgical - Exam Vital Signs Temp Pulse Resp BP Pulse Ox 97.6 F 78 16 122/77 99 12/05/16 09:36 12/05/16 09:36 12/05/16 09:36 12/05/16 09:36 12/05/16 09:36 - General well developed, no distress - Eyes PERRL - ENT normal pinna - Neck no masses - Respiratory normal expansion - Cardiovascular Rhythm: regular - Abdomen Abdomen: soft, non tender Results - Labs Abnormal Lab Results - Last 24 Hours (Table) 12/05/16 Range/Units 09:41 POC Glucose (mg/dL) 192 H (75-99) mg/dL Assessment and Plan Plan: GERD, morbid obesity. We'll perform EGD.
--- NOTE | 2016-12-05 10:02 | P.OP ---
Date of Procedure: 12/05/16 Preoperative Diagnosis: GERD Postoperative Diagnosis: GERD Procedure(s) Performed: Antral gastritis Anesthesia: MAC Surgeon: Castillo Holley Pathology: other (Antrum) Condition: stable Disposition: PACU Description of Procedure: The patient's placed on the endoscopy table in the lateral position. She received IV sedation. The gastroscope placed oropharynx passed in the esophagus and stomach. Scope was then placed through the pylorus. The first second portion of the duodenum appeared normal. Scope was then brought back the antrum this. Mildly inflamed. A biopsies performed. The scope was retroflexed and remainder stomach appeared normal. The GE junction was at40 cm . The distal esophagus appeared normal. The proximal esophagus. Normal. Scope was withdrawn for patient.
[2016-12-05 10:30] VITALS: RESP 18
[2016-12-05 10:32] VITALS: BP 114/68; PULSE 75
== END 2016-12-05 11:00 | disposition home or self-care (01) ==
LOC: ORWHC2ENDO 09:06
PROVIDERS: ATTEND Surgery
DX: K29.50 Unspecified chronic gastritis without bleeding (principal); K21.9 Gastro-esophageal reflux disease without esophagitis; E66.01 Morbid (severe) obesity due to excess calories; Z68.41 Body mass index [BMI] 40.0-44.9, adult; J45.909 Unspecified asthma, uncomplicated; M79.7 Fibromyalgia; E78.5 Hyperlipidemia, unspecified; I10 Essential (primary) hypertension; E11.21 Type 2 diabetes mellitus with diabetic nephropathy; E11.319 Type 2 diabetes mellitus with unspecified diabetic retinopathy without macular edema; Z79.4 Long term (current) use of insulin; G25.81 Restless legs syndrome; Z95.810 Presence of automatic (implantable) cardiac defibrillator; F41.9 Anxiety disorder, unspecified; F32.9 Major depressive disorder, single episode, unspecified; Z80.1 Family history of malignant neoplasm of trachea, bronchus and lung; Z82.49 Family history of ischemic heart disease and other diseases of the circulatory system; Z79.82 Long term (current) use of aspirin; Z79.899 Other long term (current) drug therapy; Z88.5 Allergy status to narcotic agent; Z88.6 Allergy status to analgesic agent; Z91.041 Radiographic dye allergy status
CPT/HCPCS: 88305; 88342; 43239; J2704

== ENCOUNTER 2016-12-10 13:15 | Inpatient (IN) | payer BC ==
[2016-12-10] MEDS ORDERED: SODIUM CHLORIDE 0.9% 1,000 ML IV STA ×2 (14:06)
[2016-12-10] MEDS ORDERED: IPRATROPIUM-ALBUTEROL 3 ML NEB INHALATION STA (14:07)
[2016-12-10] MEDS ORDERED: methylPREDNISolone SOD SUCCI 125 MG/2 ML VIAL IV STA (14:07)
[2016-12-10] MEDS ORDERED: ACETAMINOPHEN TAB 325 MG TAB PO STA (14:29)
--- NOTE | 2016-12-10 14:31 | ED ---
General Adult HPI - General Chief complaint: Shortness of Breath Stated complaint: SOB Time Seen by Provider: 12/10/16 13:58 Source: patient, RN notes reviewed Mode of arrival: wheelchair Limitations: no limitations - History of Present Illness Initial comments: Patient 51-year-old female with significant past medical history for COPD, who presents emergency room today with chief complaint of increased cough congestion and a fever with body aches over the last 4 days. Patient states that she has had increased cough congestion started last night. States she was having some sputum production. Having a difficult time getting anything out currently. Patient does admit that she's tried breathing treatment home with little relief the symptoms. She does not that she took a [id number] cold medication that he Tylenol approximately 12:00. Patient admits to bodyaches. Denies any other complaints or associated symptoms currently. Patient denies any recent chest pain, back pain, abdominal pain, nausea or vomiting, numbness or tingling, dysuria or hematuria, constipation or diarrhea, visual changes, or any other complaints. - Related Data Home Medications Medication Instructions Recorded Confirmed Atorvastatin [Lipitor] 20 mg PO HS 09/25/13 12/10/16 rOPINIRole HCL [Requip] 1 mg PO QAM 09/25/13 12/10/16 DULoxetine HCL [Cymbalta] 60 mg PO BID 12/03/14 12/10/16 Metoprolol Tartrate [Lopressor] 100 mg PO HS 12/03/14 12/10/16 Omeprazole [PriLOSEC] 20 mg PO AC-BRKFST 12/03/14 12/10/16 Dulaglutide [Trulicity] 1.5 mg SQ FR 09/10/15 12/10/16 rOPINIRole HCL [Requip] 2 mg PO HS 11/28/15 12/10/16 Amitriptyline HCl [Elavil] 20 mg PO HS 11/29/15 12/10/16 Gabapentin 1,200 mg PO 5XD 11/29/15 12/10/16 Metoprolol Tartrate [Lopressor] 50 mg PO QAM 11/29/15 12/10/16 Cyclobenzaprine [Flexeril] 10 mg PO BID PRN 04/04/16 12/10/16 Ramipril [Altace] 5 mg PO DAILY 04/04/16 12/10/16 Spironolactone [Aldactone] 25 mg PO DAILY 04/04/16 12/10/16 valACYclovir [Valtrex] 500 mg PO DAILY 04/04/16 12/10/16 Amitriptyline HCl [Elavil] 10 mg PO QAM 05/26/16 12/10/16 Furosemide [Lasix] 80 mg PO MOWEFR 05/26/16 12/10/16 Insulin Aspart [NovoLOG Flexpen] See Protocol SQ ACHS PRN 07/06/16 12/10/16 Insulin Glargine,Hum.rec.anlog 60 unit SQ QAM 07/06/16 12/10/16 [Basaglar Kwikpen U-100] Aspirin 325 mg PO DAILY 11/30/16 12/10/16 Potassium Chloride [Klor-Con 10] 10 meq PO DAILY 11/30/16 12/10/16 Cholecalciferol [Vitamin D3] 5,000 unit PO BID 12/10/16 12/10/16 Furosemide [Lasix] 40 mg PO SUTUTHSA 12/10/16 12/10/16 Allergies Allergy/AdvReac Type Severity Reaction Status Date / Time ibuprofen [From Motrin] Allergy PT HAS Verified 12/10/16 15:06 WEAK HEART MUSCLES-HIGH DOSES CAUSES CHF Iodine and Iodide Containing Allergy Rash/Hives Verified 12/10/16 15:06 Produc meperidine HCl [From Demerol] AdvReac Unknown Vomiting Verified 12/10/16 15:06 Review of Systems ROS Statement: Those systems with pertinent positive or pertinent negative responses have been documented in the HPI. ROS Other: All systems not noted in ROS Statement are negative. Past Medical History Past Medical History: Asthma, Diabetes Mellitus, Eye Disorder, Fibromyalgia, GERD/Reflux, Hyperlipidemia, Hypertension Additional Past Medical History / Comment(s): Type 2 DIABETES, NEUROPATHY FEET, GENITAL HERPES., FX OF LEFT FOOT,GASTROPARESIS, , DIABETIC RETINOPATHY, HX OF WOUNDS TREATED AT [facility]- DENIES WOUNDS NOW., INJURY TO RT LOMAS- STATES AREA IS RED BUT NO OPEN SORE., , RLS, HX OF TACHYCARDIA, BACK PAIN WITH PINCHED L-5 & S-1, STATES C-4 AND C-5 FUSED FROM SCAR TISSUE. , CAN ONLY WALK SHORT DISTANCES- USES WALKER WITH WHEELS AND SEAT AND WHEELCHAIR., PACEMAKER/ AICD- Clutch History of Any Multi-Drug Resistant Organisms: None Reported Past Surgical History: AICD, Appendectomy, Heart Catheterization, Orthopedic Surgery, Pacemaker, Tonsillectomy Additional Past Surgical History / Comment(s): SINUS SURGERY, DEVIATED SEPTUM. HX PACEMAKER ORIGINAL ONE 1980-HAS HAD MULT. GENERATOR CHANGES, MATHEW eye surgery and vitrectomy. [facility] FOR LEFT FOOT WOUND, I&D RT AXILLA FOR STAPH INFECTION, PICC LINE. SX TO RELEASE FROZEN RT SHOULDER, COLONOSCOPY, Ventricular septum repair at age 3, Past Anesthesia/Blood Transfusion Reactions: Previous Problems w/ Anesthesia Additional Past Anesthesia/Blood Transfusion Reaction / Comment(s): pt states she wakes up "slow and emotional-CRIES". Type of Cardiac Device: Permanent Pacemaker, AICD Device Placement Date:: 08/04/2016 Clutch. Past Psychological History: Anxiety, Depression Smoking Status: Never smoker Past Alcohol Use History: Rare Past Drug Use History: None Reported - Past Family History Mother Family Medical History: Cancer, COPD Additional Family Medical History / Comment(s): lung cancer at age 73 Father Family Medical History: AICD/Pacemaker, Coronary Artery Disease (CAD), Diabetes Mellitus, Hypertension, Myocardial Infarction (ME) Additional Family Medical History / Comment(s): ME @ AGE 43 @ AGE 62 Brother(s) Family Medical History: Myocardial Infarction (ME) Additional Family Medical History / Comment(s): HX ME X 3 -1ST ONE @ AGE 39 General Exam - General Exam Comments Initial Comments: General: The patient is awake and alert, in no distress, and does not appear acutely ill. Eye: Pupils are equal, round and reactive to light, extra-ocular movements are intact. No nystagmus. There is normal conjunctiva bilaterally. No signs of icterus. Ears, nose, mouth and throat: There are moist mucous membranes and no oral lesions. Neck: The neck is supple, there is no tenderness or JVD. Cardiovascular: There is a regular rate and rhythm. No murmur, rub or gallop is appreciated. Respiratory: Lungs are clear to auscultation, respirations are non-labored, breath sounds are equal. No wheezes, stridor, rales, or rhonchi. Gastrointestinal: Soft, non-distended, non-tender abdomen without masses or organomegaly noted. There is no rebound or guarding present. No CVA tenderness. Bowel sounds are unremarkable. Musculoskeletal: Normal ROM, no tenderness. Strength 5/5. Sensation intact. Pulses equal bilaterally 2+. Neurological: A&O x 3. CN II-XII intact, There are no obvious motor or sensory deficits. Coordination appears grossly intact. Speech is normal. Skin: Skin is warm and dry and no rashes or lesions are noted. Psychiatric: Cooperative, appropriate mood & affect, normal judgment. Limitations: no limitations Course Vital Signs 12/10/16 12/10/16 12/10/16 13:29 13:56 14:53 Temperature 102.3 F H 101.1 F H Pulse Rate 98 96 91 Respiratory 22 20 18 Rate Blood Pressure 109/57 115/54 106/53 O2 Sat by Pulse 90 L 91 L 96 Oximetry 12/10/16 12/10/16 15:06 15:20 Temperature Pulse Rate 91 94 Respiratory Rate Blood Pressure O2 Sat by Pulse Oximetry EKG Findings - EKG Comments: EKG Findings:: EKG shows a paced rhythm at 91 beats per minute. RI interval is 134. QRS 172. QT/QTc 420/516. No acute ST changes. Medical Decision Making - Medical Decision Making Case discussed in detail with attending physician Dr. Rivero. Patient's labs been reviewed here in the emergency room shows a 14,000 white count. Lactic acid 2.1. Patient's blood pressure stable here the emergency room. Did have low-grade fever. Patient's had cough congestion last 2 days. No chest pain. Patient's troponin elevated here in emergency room. Guaiac-negative patient started on heparin given aspirin here in the emergency room. Patient still pain free at this time. Did have some body aches negative influenza. Patient's chest x-ray shows possible CHF versus pneumonitis versus an atypical pneumonia. Patient will be treated for pneumonia started on Rocephin and azithromycin to cover. Patient will be admitted with consult to cardiology. Patient is aware the plan. - Lab Data Result diagrams: 12/10/16 14:40 12/10/16 14:40 Lab Results 12/10/16 12/10/16 12/10/16 Range/Units 14:40 14:40 14:40 WBC 14.1 H (3.8-10.6) k/uL RBC 3.82 (3.80-5.40) m/uL Hgb 11.5 (11.4-16.0) gm/dL Hct 36.1 (34.0-46.0) % MCV 94.5 (80.0-100.0) fL MCH 30.2 (25.0-35.0) pg MCHC 32.0 (31.0-37.0) g/dL RDW 14.4 (11.5-15.5) % Plt Count 194 (150-450) k/uL Neutrophils % 83 % Lymphocytes % 9 % Monocytes % 5 % Eosinophils % 1 % Basophils % 0 % Neutrophils # 11.7 H (1.3-7.7) k/uL Lymphocytes # 1.3 (1.0-4.8) k/uL Monocytes # 0.8 (0-1.0) k/uL Eosinophils # 0.2 (0-0.7) k/uL Basophils # 0.1 (0-0.2) k/uL PT (9.0-12.0) sec INR (<1.2) APTT (22.0-30.0) sec Sodium 132 L (137-145) mmol/L Potassium 5.0 (3.5-5.1) mmol/L Chloride 91 L (98-107) mmol/L Carbon Dioxide 30 (22-30) mmol/L Anion Gap 11 mmol/L BUN 24 H (7-17) mg/dL Creatinine 0.90 (0.52-1.04) mg/dL Est GFR (MDRD) Af Amer >60 (>60 ml/min/1.73 sqM) Est GFR (MDRD) Non-Af >60 (>60 ml/min/1.73 sqM) Glucose 347 H (74-99) mg/dL Plasma Lactic Acid Calvin (0.7-2.0) mmol/L Calcium 8.7 (8.4-10.2) mg/dL Magnesium 1.6 (1.6-2.3) mg/dL Total Bilirubin 0.4 (0.2-1.3) mg/dL AST 23 (14-36) U/L ALT 28 (9-52) U/L Alkaline Phosphatase 233 H (38-126) U/L Total Creatine Kinase 122 (30-135) U/L CK-MB (CK-2) 0.9 (0.0-2.4) ng/mL CK-MB (CK-2) Rel Index 0.7 Troponin I 0.088 H* (0.000-0.034) ng/mL NT-Pro-B Natriuret Pep pg/mL Total Protein 7.0 (6.3-8.2) g/dL Albumin 3.7 (3.5-5.0) g/dL Stool Occult Blood (Negative) Influenza Type A RNA (Not Detectd) Influenza Type B (PCR) (Not Detectd) 12/10/16 12/10/16 12/10/16 Range/Units 14:40 14:40 14:40 WBC (3.8-10.6) k/uL RBC (3.80-5.40) m/uL Hgb (11.4-16.0) gm/dL Hct (34.0-46.0) % MCV (80.0-100.0) fL MCH (25.0-35.0) pg MCHC (31.0-37.0) g/dL RDW (11.5-15.5) % Plt Count (150-450) k/uL Neutrophils % % Lymphocytes % % Monocytes % % Eosinophils % % Basophils % % Neutrophils # (1.3-7.7) k/uL Lymphocytes # (1.0-4.8) k/uL Monocytes # (0-1.0) k/uL Eosinophils # (0-0.7) k/uL Basophils # (0-0.2) k/uL PT 10.8 (9.0-12.0) sec INR 1.1 (<1.2) APTT 23.3 (22.0-30.0) sec Sodium (137-145) mmol/L Potassium (3.5-5.1) mmol/L Chloride (98-107) mmol/L Carbon Dioxide (22-30) mmol/L Anion Gap mmol/L BUN (7-17) mg/dL Creatinine (0.52-1.04) mg/dL Est GFR (MDRD) Af Amer (>60 ml/min/1.73 sqM) Est GFR (MDRD) Non-Af (>60 ml/min/1.73 sqM) Glucose (74-99) mg/dL Plasma Lactic Acid Calvin 2.1 H* (0.7-2.0) mmol/L Calcium (8.4-10.2) mg/dL Magnesium (1.6-2.3) mg/dL Total Bilirubin (0.2-1.3) mg/dL AST (14-36) U/L ALT (9-52) U/L Alkaline Phosphatase (38-126) U/L Total Creatine Kinase (30-135) U/L CK-MB (CK-2) (0.0-2.4) ng/mL CK-MB (CK-2) Rel Index Troponin I (0.000-0.034) ng/mL NT-Pro-B Natriuret Pep 2210 pg/mL Total Protein (6.3-8.2) g/dL Albumin (3.5-5.0) g/dL Stool Occult Blood (Negative) Influenza Type A RNA (Not Detectd) Influenza Type B (PCR) (Not Detectd) 12/10/16 12/10/16 Range/Units 15:00 15:48 WBC (3.8-10.6) k/uL RBC (3.80-5.40) m/uL Hgb (11.4-16.0) gm/dL Hct (34.0-46.0) % MCV (80.0-100.0) fL MCH (25.0-35.0) pg MCHC (31.0-37.0) g/dL RDW (11.5-15.5) % Plt Count (150-450) k/uL Neutrophils % % Lymphocytes % % Monocytes % % Eosinophils % % Basophils % % Neutrophils # (1.3-7.7) k/uL Lymphocytes # (1.0-4.8) k/uL Monocytes # (0-1.0) k/uL Eosinophils # (0-0.7) k/uL Basophils # (0-0.2) k/uL PT (9.0-12.0) sec INR (<1.2) APTT (22.0-30.0) sec Sodium (137-145) mmol/L Potassium (3.5-5.1) mmol/L Chloride (98-107) mmol/L Carbon Dioxide (22-30) mmol/L Anion Gap mmol/L BUN (7-17) mg/dL Creatinine (0.52-1.04) mg/dL Est GFR (MDRD) Af Amer (>60 ml/min/1.73 sqM) Est GFR (MDRD) Non-Af (>60 ml/min/1.73 sqM) Glucose (74-99) mg/dL Plasma Lactic Acid Calvin (0.7-2.0) mmol/L Calcium (8.4-10.2) mg/dL Magnesium (1.6-2.3) mg/dL Total Bilirubin (0.2-1.3) mg/dL AST (14-36) U/L ALT (9-52) U/L Alkaline Phosphatase (38-126) U/L Total Creatine Kinase (30-135) U/L CK-MB (CK-2) (0.0-2.4) ng/mL CK-MB (CK-2) Rel Index Troponin I (0.000-0.034) ng/mL NT-Pro-B Natriuret Pep pg/mL Total Protein (6.3-8.2) g/dL Albumin (3.5-5.0) g/dL Stool Occult Blood Negative (Negative) Influenza Type A RNA Not Detected (Not Detectd) Influenza Type B (PCR) Not Detected (Not Detectd) Disposition Clinical Impression: Community acquired pneumonia, Elevated troponin Disposition: ADMITTED IP TO THIS HOSP Condition: Stable Referrals: Anjel Vann MD [Primary Care Provider] - 1-2 days Time of Disposition: 16:15
[2016-12-10 14:54] LABS: Basophils # (A) 0.1 k/uL (0-0.2); Basophils % (A) 0 %; CH 30.7; CHCM 32.7; Eosinophils # (A) 0.2 k/uL (0-0.7); Eosinophils % (A) 1 %; HCT 36.1 % (34.0-46.0); HDW 2.43; HGB 11.5 gm/dL (11.4-16.0); Luc # (Auto) 0.16; Luc % (Auto) 1; Lymphocytes # (A) 1.3 k/uL (1.0-4.8); Lymphocytes % (A) 9 %; MCH 30.2 pg (25.0-35.0); MCV 94.5 fL (80.0-100.0); Mean Platelet Volume 8.3; Monocytes # (A) 0.8 k/uL (0-1.0); Monocytes % (A) 5 %; Neutrophils # (A) 11.7 k/uL (1.3-7.7); Neutrophils % (A) 83 %; RBC 3.82 m/uL (3.80-5.40); RDW 14.4 % (11.5-15.5); WBC 14.1 k/uL (3.8-10.6); WBC (Perox) 15.07
[2016-12-10 15:02] LABS: ALT 28 U/L (9-52); AST 23 U/L (14-36); Alkaline Phosphatase 233 U/L (38-126); Anion Gap 11 mmol/L; Blood Urea Nitrogen 24 mg/dL (7-17); Calcium 8.7 mg/dL (8.4-10.2); Carbon Dioxide 30 mmol/L (22-30); Chloride 91 mmol/L (98-107); Glucose 347 mg/dL (74-99); Magnesium 1.6 mg/dL (1.6-2.3); Non-African American GFR(MDRD) >60 (>60 ml/min/1.73 sqM); Sodium 132 mmol/L (137-145); Total Bilirubin 0.4 mg/dL (0.2-1.3)
[2016-12-10 15:06] LABS: INR 1.1 (<1.2); Partial Thromboplastin Time 23.3 sec (22.0-30.0); Prothrombin Time 10.8 sec (9.0-12.0)
[2016-12-10 15:27] LABS: Creatine Kinase MB 0.9 ng/mL (0.0-2.4)
[2016-12-10 15:31] LABS: Troponin I 0.088 ng/mL (0.000-0.034)
--- NOTE | 2016-12-10 15:43 | XR ---
EXAMINATION TYPE: XR chest 2V DATE OF EXAM: 12/10/2016 COMPARISON: 03/30/2016 HISTORY: 51-year-old female difficulty breathing, shortness of breath, cough, fever TECHNIQUE: PA and lateral views FINDINGS: Heart is mildly enlarged. Left anterior chest wall pacemaker generator with right atrial and right ve ntricular AICD leads. 2 no right ventricular leads are present. Some fragmented median sternotomy wir es are noted. I retained lead tip within the right ventricle. Additional lead extends left heart violeta in from anteriorly. Heart is mildly enlarged. Diffuse interstitial and vascular prominence slightly increased from prior. However, no significant pleural effusion is seen. IMPRESSION: Cardiomegaly with diffuse interstitial changes increased from 03/30/2016 but without pleural effusion. Correlate for possible etiologies including CHF with mild pulmonary vascular congestion, atypical pne umonias, and interstitial pneumonitis.
[2016-12-10] MEDS ORDERED: ASPIRIN 81 MG PO STA (15:58)
[2016-12-10] MEDS ORDERED: HEPARIN SODIUM,PORCINE 5,000 UNIT/ML 1 ML VIAL IV ONE (15:58)
[2016-12-10] MEDS ORDERED: AZITHROMYCIN 500 MG in SODIUM CHLORIDE 0.9% 250 ML IVPB STA (16:01)
[2016-12-10] MEDS ORDERED: NITROGLYCERIN SL TABS 0.4 MG TAB SUBLINGUAL PRN (16:15)
[2016-12-10] MEDS ORDERED: SODIUM CHLORIDE 0.9% 1,000 ML IV ONE (16:15)
[2016-12-10] MEDS ORDERED: IPRATROPIUM-ALBUTEROL 3 ML NEB INHALATION PRN (16:18)
[2016-12-10] MEDS: HEPARIN SODIUM,PORCINE/D5W PMX 25,000 UNIT in DEXTROSE/WATER 1 500ML.BAG IV SCH (16:33)
[2016-12-10 17:51] LABS: Glucose,Whole Blood 285 mg/dL (75-99)
[2016-12-10] MEDS: methylPREDNISolone SOD SUCCI 125 MG/2 ML VIAL IV SCH ×2 (18:32→23:34)
[2016-12-10] MEDS ORDERED: CYCLOBENZAPRINE 10 MG TAB PO PRN (18:58)
[2016-12-10] MEDS ORDERED: Magnesium Replacement Protocol 1 EACH MISC MISCELLANE PRN (19:03)
[2016-12-10] MEDS ORDERED: ACETAMINOPHEN TAB 325 MG TAB PO PRN (19:03)
[2016-12-10] MEDS: FUROSEMIDE 40 MG TAB PO SCH (19:58)
[2016-12-10] MEDS: GABAPENTIN 400 MG CAP PO SCH ×2 (19:59→21:22)
[2016-12-10] MEDS: MAGNESIUM SULFATE-D5W PMX 1 GM in DEXTROSE/WATER 1 100ML.BAG IVPB SCH ×2 (19:59→21:21)
[2016-12-10] MEDS: CHOLECALCIFEROL 1,000 UNIT TAB PO SCH (20:00)
[2016-12-10] MEDS: AMITRIPTYLINE HCL 10 MG TAB PO SCH (20:00)
[2016-12-10] MEDS: ATORVASTATIN 20 MG TAB PO SCH (20:00)
[2016-12-10] MEDS: METOPROLOL TARTRATE 50 MG TAB PO SCH (20:01)
[2016-12-10] MEDS: DULoxetine HCL 60 MG CAPSULE.DR PO SCH (20:01)
[2016-12-10] MEDS ORDERED: INSULIN LISPRO (humaLOG) 300 UNIT/3 ML VIAL SQ SCH (21:00)
[2016-12-10] MEDS ORDERED: INSULIN REGULAR BOLUS (FROM DRIP BAG) IV ONE (21:40)
[2016-12-10 21:42] LABS: Glucose,Whole Blood 437 mg/dL (75-99)
[2016-12-10 22:05] LABS: Creatine Kinase MB 1.1 ng/mL (0.0-2.4)
[2016-12-10 22:14] LABS: Troponin I 0.102 ng/mL (0.000-0.034)
[2016-12-10] MEDS: INSULIN REGULAR 100 UNIT in SODIUM CHLORIDE 0.9% 100 ML IV SCH (22:25)
[2016-12-10 23:13] LABS: Glucose,Whole Blood 432 mg/dL (75-99)
[2016-12-10 23:33] LABS: Glucose,Whole Blood 397 mg/dL (75-99)
[2016-12-11 00:20] LABS: Glucose,Whole Blood 340 mg/dL (75-99)
[2016-12-11] MEDS: INSULIN REGULAR 100 UNIT in SODIUM CHLORIDE 0.9% 100 ML IV SCH ×3 (00:26→23:30)
[2016-12-11 00:43] LABS: Glucose,Whole Blood 321 mg/dL (75-99)
[2016-12-11 02:09] LABS: Glucose,Whole Blood 281 mg/dL (75-99)
[2016-12-11 02:09] LABS: Glucose,Whole Blood 283 mg/dL (75-99)
[2016-12-11 02:09] LABS: Glucose,Whole Blood 280 mg/dL (75-99)
[2016-12-11 02:47] LABS: Glucose,Whole Blood 208 mg/dL (75-99)
[2016-12-11 03:38] LABS: Creatine Kinase MB 1.3 ng/mL (0.0-2.4)
[2016-12-11 03:48] LABS: Troponin I 0.077 ng/mL (0.000-0.034)
[2016-12-11 04:35] LABS: Glucose,Whole Blood 175 mg/dL (75-99)
[2016-12-11] MEDS: methylPREDNISolone SOD SUCCI 125 MG/2 ML VIAL IV SCH (05:55)
[2016-12-11] MEDS: PANTOPRAZOLE 40 MG TABLET PO SCH (06:11)
[2016-12-11 06:14] LABS: Basophils % (A) 0 %; CH 30.6; CHCM 32.1; Eosinophils % (A) 0 %; HCT 35.5 % (34.0-46.0); HDW 2.47; HGB 10.8 gm/dL (11.4-16.0); Luc # (Auto) 0.06; Luc % (Auto) 0; Lymphocytes # (A) 1.4 k/uL (1.0-4.8); Lymphocytes % (A) 8 %; MCH 29.2 pg (25.0-35.0); MCHC 30.4 g/dL (31.0-37.0); MCV 96.1 fL (80.0-100.0); Mean Platelet Volume 8.3; Monocytes # (A) 0.5 k/uL (0-1.0); Monocytes % (A) 3 %; Neutrophils # (A) 16.1 k/uL (1.3-7.7); Neutrophils % (A) 89 %; RBC 3.69 m/uL (3.80-5.40); RDW 14.3 % (11.5-15.5); WBC 18.1 k/uL (3.8-10.6); WBC (Perox) 17.73
[2016-12-11 06:17] LABS: Glucose,Whole Blood 205 mg/dL (75-99)
[2016-12-11 06:37] LABS: ALT 29 U/L (9-52); AST 26 U/L (14-36); Alkaline Phosphatase 219 U/L (38-126); Anion Gap 11 mmol/L; Blood Urea Nitrogen 28 mg/dL (7-17); Calcium 8.1 mg/dL (8.4-10.2); Carbon Dioxide 25 mmol/L (22-30); Chloride 99 mmol/L (98-107); Cholesterol 90 mg/dL (<200); Glucose 194 mg/dL (74-99); HDL Cholesterol 38 mg/dL (40-60); Magnesium 2.3 mg/dL (1.6-2.3); Non-African American GFR(MDRD) >60 (>60 ml/min/1.73 sqM); Potassium 4.6 mmol/L (3.5-5.1); Sodium 135 mmol/L (137-145); Total Bilirubin 0.2 mg/dL (0.2-1.3); Total Protein 6.3 g/dL (6.3-8.2)
[2016-12-11 08:17] LABS: Glucose,Whole Blood 213 mg/dL (75-99)
[2016-12-11] MEDS ORDERED: AZITHROMYCIN 500 MG in SODIUM CHLORIDE 0.9% 250 ML IVPB SCH (09:00)
[2016-12-11] MEDS ORDERED: ASPIRIN 325 MG TAB PO SCH (09:00)
[2016-12-11] MEDS ORDERED: INSULIN GLARGINE 100 UNIT/ML 10 ML VIAL SQ SCH (09:00)
[2016-12-11 10:29] LABS: Glucose,Whole Blood 204 mg/dL (75-99)
[2016-12-11] MEDS: INSULIN LISPRO (humaLOG) 300 UNIT/3 ML VIAL SQ SCH ×3 (10:29→17:11)
[2016-12-11] MEDS: CHOLECALCIFEROL 1,000 UNIT TAB PO SCH ×2 (10:33→20:21)
[2016-12-11] MEDS: AMITRIPTYLINE HCL 10 MG TAB PO SCH ×2 (10:33→20:19)
[2016-12-11] MEDS: ASPIRIN 325 MG TAB PO SCH (10:33)
[2016-12-11] MEDS: DULoxetine HCL 60 MG CAPSULE.DR PO SCH ×2 (10:34→20:20)
[2016-12-11] MEDS: GABAPENTIN 400 MG CAP PO SCH ×5 (10:35→23:12)
[2016-12-11] MEDS: METOPROLOL TARTRATE 50 MG TAB PO SCH ×2 (10:36→20:21)
[2016-12-11] MEDS: SPIRONOLACTONE 25 MG TAB PO SCH (10:37)
[2016-12-11] MEDS: valACYclovir 500 MG TAB PO SCH (10:37)
[2016-12-11 11:55] LABS: Glucose,Whole Blood 293 mg/dL (75-99)
[2016-12-11] MEDS: LISINOPRIL 20 MG TAB PO SCH (11:59)
[2016-12-11] MEDS: POTASSIUM CHLORIDE ER 10 MEQ TAB.ER.PRT PO SCH (12:00)
[2016-12-11] MEDS: HEPARIN SODIUM,PORCINE/D5W PMX 25,000 UNIT in DEXTROSE/WATER 1 500ML.BAG IV SCH (12:05)
--- NOTE | 2016-12-11 13:52 | CONS ---
CONSULTATION This patient's medical record is reviewed. This patient came with a complaint of cough, congestion, body aches and fever. The patient had a temperature of 102 in the emergency room. The patient has been having some difficulty in breathing. The patient chest x-ray was suggestive for pneumonia and the patient is admitted in the hospital. This patient has a history of a congenital VSD with surgery done at [facility] at the age of 3 and subsequently the patient had a pacemaker implanted at the age of 14 and she had multiple generator changes. She has AICD. She is being followed by Dr. Johnson as well as Dr. Glynn. The patient denies any exertional chest pain. Her physical activities are limited and she has a moderately impaired left ventricular systolic function. PAST MEDICAL HISTORY: Includes history of type 2 diabetes, neuropathy, history of sinus surgery. History of repair of ventriculoseptal defect and AICD and pacemaker placement. History of cervical spine surgery, AICD, appendectomy and tonsillectomy. SOCIAL HISTORY: Patient does not smoke. HOME MEDICATIONS: Include: 1. Requip. 2. Elavil. 3. Lopressor 50 mg in the morning. 4. Flexeril 10 mg b.i.d. p.r.n. 5. Altace 5 mg daily. 6. Aldactone 25 mg daily. 7. Lasix 80 mg Monday and Lasix 80 mg per oral. 8. Vitamin D3. 9. Cymbalta. 10.Lopressor 100 mg at night. 11.Trulicity. PHYSICAL EXAMINATION: At this point physical examination is the patient in the emergency room this patient had a temperature of 102.3. Blood pressure was 109/57 mmHg and oxygen saturation was 90%. The patient is afebrile now. Blood pressure is 123/64 mmHg, heart rate is 73 per minute. HEENT examination is negative. NECK: Supple. There is no increase in jugular venous pressure. Both the carotid pulses are felt. There is no bruit. Chest is symmetrical. Heart the first and second heart sounds are heard. Heart tones are distant. Lungs examination reveals bilateral wheezes. ABDOMEN: Soft. Extremities peripheral pulses 1+. LABORATORY DATA: EKG shows [place] [address]. Chest x-ray suggestive of pneumonia. Underlying mild heart failure cannot be entirely excluded. The patient's proBNP level is 2200. The patient usually run the proBNP level in the range of 7875-2576. IMPRESSION: This patient is primarily admitted with symptoms of cough, congestion suggestive of acute bronchitis and associated pneumonia, mild congestive cardiac failure cannot be entirely excluded. The patient had some borderline elevated troponin which are without any significant rise and fall and overall picture is not suggestive of acute coronary syndrome. This could be secondary to pneumonia also. After the patient has recovered from pneumonia, patient can be considered for a stress test as an outpatient. Thank you for this consultation. SRIKANTH / ANAND: [id number] /
[2016-12-11 14:11] LABS: Glucose,Whole Blood 303 mg/dL (75-99)
--- NOTE | 2016-12-11 14:39 | P.CNPUL ---
History of Present Illness Consult date: 12/11/16 Reason for consult: pneumonia History of present illness: This is a 51-year-old female patient obese with a BMI of 44, also with known history of congenital heart disease with VSD requiring exposure at a young age with subsequent development of congestion heart failure, cardiomyopathy and the patient has an AICD in place/AICD pacer. The patient is also diabetic. The patient came into the hospital because of worsening shortness of breath. She had increased cough and congestion and she had a temperature of 102. And since then she was feeling some worsening exertional dyspnea and some increased in lower extremity edema. For that reason she was admitted to the hospital. Chest x-ray was done and showed cardiomegaly, pacer/AICD in place and some limited pulmonary infiltration the right lung specially in the right upper lobe was seen. She was started on broad-spectrum antibiotics and a pulmonary consultation was requested. She claims to have a mild intermittent bronchial asthma however she has not been maintained and inform of maintenance history medications or inhalers. No hemoptysis. No pleurisy. No COPD a lifetime nonsmoker although she has been exposed to secondhand cigarette smoking. No recurrent pneumonias. She is already feeling better. She is less short of breath compared to yesterday. She is currently on room air. No change in mental status. No other significant events overnight. Review of Systems Constitutional: Reports fatigue Eyes: denies blurred vision, denies bulging eye, denies decreased vision Ears: deny: decreased hearing, ear discharge, earache Ears, nose, mouth and throat: Denies headache, Denies sore throat Cardiovascular: Reports decreased exercise tolerance, Reports dyspnea on exertion Respiratory: Reports cough, Reports dyspnea Gastrointestinal: Denies abdominal pain, Denies diarrhea, Denies nausea, Denies vomiting Genitourinary: Denies dysuria, Denies hematuria Musculoskeletal: Denies myalgias Musculoskeletal: bilateral: ankle swelling, absent: ankle pain, ankle stiffness Integumentary: Denies pruritus, Denies rash Neurological: Denies numbness, Denies weakness Psychiatric: Denies anxiety, Denies depression Endocrine: Denies fatigue, Denies weight change Past Medical History Past Medical History: Asthma, Diabetes Mellitus, Eye Disorder, Fibromyalgia, GERD/Reflux, Hyperlipidemia, Hypertension Additional Past Medical History / Comment(s): Mild intermittent bronchial asthma , obesity, VSD, cardiomyopathy, pacer/AICD in place, diabetes mellitus, diabetic retinopathy, diabetic gastroparesis, diabetic peripheral neuropathy, history of genital herpes, RLS, chronic back pain with degenerative disc disease involving L5 and S1 in addition to cervical disc disease involving C4 and C5, difficulty with mobility and the patient uses a walker/motorized scooter for longer distances. Hyperlipidemia, hypertension, fibromyalgia, acid reflux History of Any Multi-Drug Resistant Organisms: None Reported Past Surgical History: AICD, Appendectomy, Heart Catheterization, Orthopedic Surgery, Pacemaker, Tonsillectomy Additional Past Surgical History / Comment(s): Sinus surgery with correction of a deviated nasal septum, pacer/AICD placement, bilateral eye surgery with vitrectomy, treatment of a wound in the left foot and diabetic foot ulcer, history of I&D of an axillary staphylococcal infection, PICC line insertion and removal, shoulder surgery for a frozen shoulder, colonoscopy, VSD repair at age of 3 Past Anesthesia/Blood Transfusion Reactions: Previous Problems w/ Anesthesia Additional Past Anesthesia/Blood Transfusion Reaction / Comment(s): pt states she wakes up "slow and emotional-CRIES". Type of Cardiac Device: Permanent Pacemaker, AICD Device Placement Date:: 08/04/2016 [employer]. Past Psychological History: Anxiety, Depression Additional Psychological History / Comment(s): . Smoking Status: Never smoker Past Alcohol Use History: Rare Past Drug Use History: None Reported - Past Family History Mother Family Medical History: Cancer, COPD Additional Family Medical History / Comment(s): lung cancer at age 73 Father Family Medical History: AICD/Pacemaker, Coronary Artery Disease (CAD), Diabetes Mellitus, Hypertension, Myocardial Infarction (NC) Additional Family Medical History / Comment(s): NC @ AGE 43 @ AGE 62 Brother(s) Family Medical History: Myocardial Infarction ([place]) Additional Family Medical History / Comment(s): HX NC X 3 -1ST ONE @ AGE 39 Medications and Allergies Home Medications Medication Instructions Recorded Confirmed Type Atorvastatin [Lipitor] 20 mg PO HS 09/25/13 12/10/16 History rOPINIRole HCL [Requip] 1 mg PO QAM 09/25/13 12/10/16 History DULoxetine HCL [Cymbalta] 60 mg PO BID 12/03/14 12/10/16 History Metoprolol Tartrate [Lopressor] 100 mg PO HS 12/03/14 12/10/16 History Omeprazole [PriLOSEC] 20 mg PO AC-BRKFST 12/03/14 12/10/16 History Dulaglutide [Trulicity] 1.5 mg SQ FR 09/10/15 12/10/16 History rOPINIRole HCL [Requip] 2 mg PO HS 11/28/15 12/10/16 History Amitriptyline HCl [Elavil] 20 mg PO HS 11/29/15 12/10/16 History Gabapentin 1,200 mg PO 5XD 11/29/15 12/10/16 History Metoprolol Tartrate [Lopressor] 50 mg PO QAM 11/29/15 12/10/16 History Cyclobenzaprine [Flexeril] 10 mg PO BID PRN 04/04/16 12/10/16 History Ramipril [Altace] 5 mg PO DAILY 04/04/16 12/10/16 History Spironolactone [Aldactone] 25 mg PO DAILY 04/04/16 12/10/16 History valACYclovir [Valtrex] 500 mg PO DAILY 04/04/16 12/10/16 History Amitriptyline HCl [Elavil] 10 mg PO QAM 05/26/16 12/10/16 History Furosemide [Lasix] 80 mg PO MOWEFR 05/26/16 12/10/16 History Insulin Aspart [NovoLOG Flexpen] See Protocol SQ ACHS PRN 07/06/16 12/10/16 History Insulin Glargine,Hum.rec.anlog 60 unit SQ QAM 07/06/16 12/10/16 History [Basaglar Kwikpen U-100] Aspirin 325 mg PO DAILY 11/30/16 12/10/16 History Potassium Chloride [Klor-Con 10] 10 meq PO DAILY 11/30/16 12/10/16 History Cholecalciferol [Vitamin D3] 5,000 unit PO BID 12/10/16 12/10/16 History Furosemide [Lasix] 40 mg PO SUTUTHSA 12/10/16 12/10/16 History Allergies Allergy/AdvReac Type Severity Reaction Status Date / Time ibuprofen [From Motrin] Allergy PT HAS Verified 12/10/16 15:06 WEAK HEART MUSCLES-HIGH DOSES CAUSES CHF Iodine and Iodide Containing Allergy Rash/Hives Verified 12/10/16 15:06 Produc meperidine HCl [From Demerol] AdvReac Unknown Vomiting Verified 12/10/16 15:06 Physical Exam Vitals: Vital Signs Temp Pulse Pulse Resp BP BP Pulse Ox 12/11/16 11:55 73 16 123/64 95 12/11/16 08:15 97.7 F 70 16 106/58 92 L 12/11/16 04:00 98.6 F 72 18 116/61 95 12/11/16 00:00 97.0 F L 72 18 104/54 95 12/10/16 20:00 97.5 F L 80 18 111/54 96 12/10/16 17:30 99.4 F 89 16 101/53 96 12/10/16 16:44 101.0 F H 92 18 109/58 97 12/10/16 15:20 94 12/10/16 15:06 91 12/10/16 14:53 91 18 106/53 96 Intake and Output 12/10/16 12/11/16 12/11/16 22:59 06:59 14:59 Intake Total 250.869 341.601 Balance 250.869 341.601 Intake: Intake, IV Titration 250.869 341.601 Amount Heparin Sodium,Porcine/ 147.63 290.472 D5w Pmx 25,000 unit In Dextrose/Water 1 500ml. bag @ 10 UNITS/KG/HR 19. 95 mls/hr IV .Q24H [facility] Rx #:[id number] Insulin Regular 100 unit 103.239 51.129 In Sodium Chloride 0.9% 100 ml @ Titrate IV .Q0M [facility] Rx#:[id number] Other: # Voids 1 1 # Bowel Movements 1 Weight 99.79 kg 102.9 kg Patient is calm and comfortable not in acute distress. She is able to speak full sentences.Head exam was generally normal. There was no scleral icterus or corneal arcus. Mucous membranes were moist.Neck was supple and without jugular venous distension, thyromegaly, or carotid bruits. Carotids were easily palpable bilaterally. There was no adenopathy. Neck is short and supple and there is significant crowding of posterior pharynx. There is a little neck masses.Cardiac exam revealed the PMI to be normally situated and sized. The rhythm was regular and no extrasystoles were noted during several minutes of auscultation. The first and second heart sounds were normal and physiologic splitting of the second heart sound was noted. There were no murmurs, rubs, clicks, or gallops.Lungs were clear to auscultation and percussion, and with normal diaphragmatic excursion. No wheezes or rales were noted. Abdominal exam revealed normal bowel sounds. The abdomen was soft, non-tender, and without masses, organomegaly, or appreciable enlargement of the abdominal aorta.Examination of the extremities revealed easily palpable radial, femoral and pedal pulses. There was no cyanosis, clubbing and there is +1 edema lower extremities bilaterally. Neurologically the patient is awake and alert and there is no focal neurological deficits.Examination of the skin revealed no evidence of significant rashes, suspicious appearing nevi or other concerning lesions. Results - Laboratory Findings CBC and BMP: 12/11/16 05:32 12/11/16 05:32 PT/INR, D-dimer PT 10.8 sec (9.0-12.0) 12/10/16 14:40 INR 1.1 (<1.2) 12/10/16 14:40 Abnormal lab findings: Abnormal Labs 12/10/16 12/10/16 12/10/16 14:40 14:40 14:40 WBC 14.1 H RBC Hgb MCHC Neutrophils # 11.7 H APTT Sodium 132 L Chloride 91 L BUN 24 H Glucose 347 H POC Glucose (mg/dL) Hemoglobin A1c Plasma Lactic Acid Calvin Calcium Alkaline Phosphatase 233 H Total Creatine Kinase Troponin I 0.088 H* Albumin HDL Cholesterol 12/10/16 12/10/16 12/10/16 14:40 17:43 19:28 WBC RBC Hgb MCHC Neutrophils # APTT Sodium Chloride BUN Glucose POC Glucose (mg/dL) 285 H Hemoglobin A1c 11.0 H Plasma Lactic Acid Calvin 2.1 H* Calcium Alkaline Phosphatase Total Creatine Kinase Troponin I Albumin HDL Cholesterol 12/10/16 12/10/16 12/10/16 21:08 21:29 22:37 WBC RBC Hgb MCHC Neutrophils # APTT 45.4 H Sodium Chloride BUN Glucose POC Glucose (mg/dL) 437 H Hemoglobin A1c Plasma Lactic Acid Calvin Calcium Alkaline Phosphatase Total Creatine Kinase 379 H Troponin I 0.102 H* Albumin HDL Cholesterol 12/10/16 12/10/16 12/11/16 22:58 23:29 00:02 WBC RBC Hgb MCHC Neutrophils # APTT Sodium Chloride BUN Glucose POC Glucose (mg/dL) 432 H 397 H 340 H Hemoglobin A1c Plasma Lactic Acid Calvin Calcium Alkaline Phosphatase Total Creatine Kinase Troponin I Albumin HDL Cholesterol 12/11/16 12/11/16 12/11/16 00:31 01:08 01:31 WBC RBC Hgb MCHC Neutrophils # APTT Sodium Chloride BUN Glucose POC Glucose (mg/dL) 321 H 281 H 280 H Hemoglobin A1c Plasma Lactic Acid Calvin Calcium Alkaline Phosphatase Total Creatine Kinase Troponin I Albumin HDL Cholesterol 12/11/16 12/11/16 12/11/16 01:58 02:33 02:35 WBC RBC Hgb MCHC Neutrophils # APTT Sodium Chloride BUN Glucose POC Glucose (mg/dL) 283 H 208 H Hemoglobin A1c Plasma Lactic Acid Calvin Calcium Alkaline Phosphatase Total Creatine Kinase 445 H Troponin I 0.077 H* Albumin HDL Cholesterol 12/11/16 12/11/16 12/11/16 04:31 05:32 05:32 WBC 18.1 H RBC 3.69 L Hgb 10.8 L MCHC 30.4 L Neutrophils # 16.1 H APTT Sodium 135 L Chloride BUN 28 H Glucose 194 H POC Glucose (mg/dL) 175 H Hemoglobin A1c Plasma Lactic Acid Calvin Calcium 8.1 L Alkaline Phosphatase 219 H Total Creatine Kinase Troponin I Albumin 3.2 L HDL Cholesterol 38 L 12/11/16 12/11/16 12/11/16 05:32 06:03 08:04 WBC RBC Hgb MCHC Neutrophils # APTT 50.9 H Sodium Chloride BUN Glucose POC Glucose (mg/dL) 205 H 213 H Hemoglobin A1c Plasma Lactic Acid Calvin Calcium Alkaline Phosphatase Total Creatine Kinase Troponin I Albumin HDL Cholesterol 12/11/16 12/11/16 12/11/16 10:27 11:53 14:09 WBC RBC Hgb MCHC Neutrophils # APTT Sodium Chloride BUN Glucose POC Glucose (mg/dL) 204 H 293 H 303 H Hemoglobin A1c Plasma Lactic Acid Calvin Calcium Alkaline Phosphatase Total Creatine Kinase Troponin I Albumin HDL Cholesterol - Diagnostic Findings Chest x-ray: image reviewed Assessment and Plan Plan: Assessment 1 acute right lung pneumonia with leukocytosis and fever or increased shortness of breath 2 worsening shortness of breath secondary to above 3 nonischemic cardiomyopathy with a component of mild CHF 4 VSD status post closure at the age of 3 5 mild intermittent bronchial asthma per history and the patient has not been maintained on any form of maintenance inhalers 6 obesity with a BMI of 44.3 7 pacemaker/AICD placement in the patient's current cardiac rhythm is paced 8 diabetes mellitus with diabetic retinopathy and diabetic gastroparesis and diabetic neuropathy 9 chronic back pain with degenerative disc disease involving L5-S1 10 chronic difficulties with mobility and gait 11 hyperlipidemia 12 hypertension 13 fibromyalgia 14 acid reflux Plan Sputum Gram stain and culture. Blood culture. Monitor white cell count. Rocephin and Zithromax as an empiric antibiotic coverage regarding the right leg pneumonia. Continue oral Lasix. Cardiology consultation regarding her CHF. Hemodynamically stable. We'll continue to follow. Will need a follow-up chest x-ray with next 24-48 hours. Clinically stable.
[2016-12-11 16:31] LABS: Glucose,Whole Blood 172 mg/dL (75-99)
--- NOTE | 2016-12-11 16:31 | HP ---
HISTORY AND PHYSICAL CHIEF COMPLAINT: Shortness of breath and cough. HISTORY OF PRESENT ILLNESS: This is a 51-year-old female with past medical history significant for obesity, presents to the hospital with shortness of breath and cough. The patient reported fever that started two nights ago associated with cough that was productive at the beginning for green phlegm associated with fever, the highest was at home was 102. The patient in the emergency department had temperature of 102.8, and was started on IV antibiotics after high suspicion for pneumonia. The patient stated that she is up to date on her vaccination and she has followed up closely with primary care physician. The patient is diabetic and has been controlled for a long time. The patient denied any weight loss, night sweats or low-grade fever prior to this episode and stated that she is in her regular state of health, compliant with her medication and stated that her diabetes has been fluctuating overall. The patient currently is denying chest pain, nausea, vomiting, abdominal pain, dizziness, lightheadedness, or blurry vision. REVIEW OF SYSTEMS: All 14 systems reviewed and negative except as above. ALLERGIES: IBUPROFEN, IODINE, MEPERIDINE OR DEMEROL. HOME MEDICATION: Reviewed and reconciled in chart. Discussed with the patient and verified. PAST MEDICAL AND SURGICAL HISTORY: 1. Asthma. 2. Diabetes type 2, insulin dependent. 3. Fibromyalgia. 4. GERD. 5. Hyperlipidemia. 6. Hypertension. 7. Peripheral neuropathy. 8. History of chronic genital herpes. 9. Gastroparesis. 10.Diabetic retinopathy. 11.Prior history of SVT and nonsustained ventricular tachycardia with subsequent AICD placement by Cardiology. 12.Cardiac catheterization. 13.Appendectomy. 14.Tonsillectomy. 15.Sinus surgery. 16.Deviated septum. 17.Colonoscopy. 18.Ventricular septum repair at age 3. I am not sure what Hospital. SOCIAL HISTORY: Patient denied smoking at any time of life. Denied alcohol or drug abuse. FAMILY HISTORY: Reviewed and negative. PHYSICAL EXAMINATION: Vital signs is on presentation, temperature was 102.3. Currently, patient is afebrile and has been receiving Tylenol almost every shift. GENERAL: In her stated age, in no acute distress. HEART: Normal S1, S2. HEENT: Atraumatic, normocephalic. PERRLA. NECK: Supple. No masses. No thyromegaly. LUNGS: Coarse breathing sounds bilaterally with scattered rhonchi. ABDOMEN: Soft. No palpable mass. Bowel sounds in all 4 quadrants. LOWER EXTREMITY: Chronic stable trace edema. PSYCH: Alert and oriented x3. Mood and affect intact. NEURO: Cranial nerves 2-12 intact. Normal gait. and sensation. SKIN: No rash. IMAGING AND LABS: The CBC showed white blood count of 14. Chemistry showed slightly elevated BUN 24, sodium 132, and glucose 347. Liver function tests within acceptable range. Troponin slightly elevated at 0.088. BNP is elevated at 2210. ASSESSMENT AND PLAN: 1. Community-acquired pneumonia. 2. Elevated troponin. 3. History of ventricular tachycardia, status post AICD placement. 4. Hyponatremia. 5. Leukocytosis. 6. Fever. 7. Obesity. 8. Uncontrolled diabetes mellitus. 9. Hypertension. 10.Hyperlipidemia. 11.Fibromyalgia. 12.Peripheral neuropathy. 13.Anxiety and depression. 14.Gastroparesis. 15.Chronic lower extremity edema. 16.Restless leg syndrome. 17.gastroesophageal reflux disease. PLAN: I would like to start the patient on antibiotics. Follow up on the sputum culture. Follow urine for rule out any Legionella and follow up on sputum culture results. We will continue with aggressive breathing treatment and consult Pulmonary for followup outpatient and consideration for repeat chest x-ray during this hospital stay. The patient is agreeable to the current treatment plan and I would like to discontinue her dose of steroids. Her leukocytosis has worsened since yesterday. The patient was started on IV steroids. The patient denies any history of COPD and currently has no wheezing on physical examination. I would like to avoid extra steroids as the patient was started on insulin drip at this point. I would like to resume home medications. Start the patient on DVT prophylaxis. Monitor the improvement closely and consider on discharge switching oral antibiotics upon improvement. MMODL / IJN: [id number] /
[2016-12-11 18:05] LABS: Glucose,Whole Blood 193 mg/dL (75-99)
[2016-12-11 19:54] LABS: Glucose,Whole Blood 250 mg/dL (75-99)
[2016-12-11] MEDS: ATORVASTATIN 20 MG TAB PO SCH (20:19)
[2016-12-11] MEDS: FUROSEMIDE 40 MG TAB PO SCH ×2 (20:19→21:14)
[2016-12-11 21:57] LABS: Glucose,Whole Blood 318 mg/dL (75-99)
[2016-12-12 00:01] LABS: Glucose,Whole Blood 299 mg/dL (75-99)
[2016-12-12] MEDS: PROMETHAZ-COD 6.25-10 MG/5 ML 5 ML CUP PO PRN ×2 (00:19→23:16)
[2016-12-12 02:01] LABS: Glucose,Whole Blood 187 mg/dL (75-99)
[2016-12-12 03:52] LABS: Glucose,Whole Blood 206 mg/dL (75-99)
[2016-12-12 05:58] LABS: Glucose,Whole Blood 182 mg/dL (75-99)
[2016-12-12 08:11] LABS: Glucose,Whole Blood 178 mg/dL (75-99)
[2016-12-12] MEDS ORDERED: INSULIN GLARGINE 100 UNIT/ML 10 ML VIAL SQ SCH (09:00)
[2016-12-12] MEDS ORDERED: FUROSEMIDE 80 MG TAB PO SCH (09:00)
[2016-12-12] MEDS: PANTOPRAZOLE 40 MG TABLET PO SCH (09:31)
[2016-12-12] MEDS: ASPIRIN 325 MG TAB PO SCH (09:32)
[2016-12-12] MEDS: AMITRIPTYLINE HCL 10 MG TAB PO SCH ×2 (09:32→20:05)
[2016-12-12] MEDS: DULoxetine HCL 60 MG CAPSULE.DR PO SCH ×2 (09:33→20:06)
[2016-12-12] MEDS: AZITHROMYCIN 500 MG TAB PO SCH (09:33)
[2016-12-12] MEDS: CHOLECALCIFEROL 1,000 UNIT TAB PO SCH ×2 (09:33→20:06)
[2016-12-12] MEDS: FUROSEMIDE 80 MG TAB PO SCH (09:34)
[2016-12-12] MEDS: SPIRONOLACTONE 25 MG TAB PO SCH (09:35)
[2016-12-12] MEDS: GABAPENTIN 400 MG CAP PO SCH ×5 (09:35→23:13)
[2016-12-12] MEDS: valACYclovir 500 MG TAB PO SCH (09:35)
[2016-12-12] MEDS: LISINOPRIL 20 MG TAB PO SCH (09:36)
[2016-12-12] MEDS: POTASSIUM CHLORIDE ER 10 MEQ TAB.ER.PRT PO SCH (09:36)
[2016-12-12] MEDS: predniSONE 20 MG TAB PO SCH (09:36)
[2016-12-12] MEDS: METOPROLOL TARTRATE 50 MG TAB PO SCH ×2 (09:36→20:06)
[2016-12-12 10:05] LABS: Glucose,Whole Blood 318 mg/dL (75-99)
--- NOTE | 2016-12-12 10:46 | ECHOF ---
Referral Reason:sob MEASUREMENTS -------- HEIGHT: 152.4 cm WEIGHT: 102.5 kg BP: 108/64 RVIDd: 3.0 cm (< 3.3) IVSd: 1.1 cm (0.6 - 1.1) LVIDd: 4.8 cm (3.9 - 5.3) LVPWd: 1.2 cm (0.6 - 1.1) IVSs: 1.7 cm LVIDs: 3.8 cm LVPWs: 1.8 cm LA Diam: 3.8 cm (2.7 - 3.8) Ao Diam: 3.3 cm (2.0 - 3.7) MV EXCURSION: 9.371 mm (> 18.000) MV EF SLOPE: 29 mm/s (70 - 150) EPSS: 1.0 cm RAP: 15.00 mmHg RVSP: 40.04 mmHg FINDINGS -------- This was a technically difficult study with suboptimal views. The left ventricular size is normal. There is borderline concentric left ventricular hypertrophy. Overall left ventricular systolic function is moderately impaired with, an EF between 35 - 40 %. Apical anterior LV wall motion is hypokinetic. Apical inferior LV wall motion is hypokinetic. Apical septum LV wall motion is hypokinetic. The right ventricle is normal in size. The left atrial size is normal. The right atrium was not well visualized. 1.5mg of Definity was utilized for enhancement of images The aortic valve is trileaflet and appears structurally normal. Mild mitral annular calcification present. Mild mitral regurgitation is present. Mild tricuspid regurgitation present. There is mild pulmonary hypertension. The right ventricular systolic pressure, as measured by Doppler, is 40.04mmHg. Trace/mild (physiologic) pulmonic regurgitation. The aortic root size is normal. The inferior vena cava is dilated with no significant inspiratory collapse which is consistent estimated right atrial pressure of >20 mmHg. There is no pericardial effusion. CONCLUSIONS -------- 1. This was a technically difficult study with suboptimal views. 2. The right atrium was not well visualized. 3. 1.5mg of Definity was utilized for enhancement of images 4. The aortic valve is trileaflet and appears structurally normal. 5. Mild mitral annular calcification present. 6. Mild mitral regurgitation is present. 7. Mild tricuspid regurgitation present. 8. There is mild pulmonary hypertension. 9. The right ventricular systolic pressure, as measured by Doppler, is 40.04mmHg. 10. Trace/mild (physiologic) pulmonic regurgitation. 11. The aortic root size is normal. 12. The left ventricular size is normal. 13. The inferior vena cava is dilated with no significant inspiratory collapse which is consistent estimated right atrial pressure of >20 mmHg. 14. There is no pericardial effusion. 15. There is borderline concentric left ventricular hypertrophy. 16. Overall left ventricular systolic function is moderately impaired with, an EF between 35 - 40 %. 17. Apical anterior LV wall motion is hypokinetic. 18. Apical inferior LV wall motion is hypokinetic. 19. Apical septum LV wall motion is hypokinetic. 20. The right ventricle is normal in size. 21. The left atrial size is normal. GRAIN HANDLER: Betty Gann RDCS
[2016-12-12] MEDS: INSULIN LISPRO (humaLOG) 300 UNIT/3 ML VIAL SQ SCH ×6 (10:48→21:25)
[2016-12-12 11:34] LABS: Glucose,Whole Blood 324 mg/dL (75-99)
--- NOTE | 2016-12-12 11:52 | P.PN ---
Subjective Progress Note Date: 12/12/16 Principal diagnosis: Acute right lung pneumonia, clinically acquired, and acute on chronic congestive heart failure. This is a 51-year-old female patient obese with a BMI of 44, also with known history of congenital heart disease with VSD requiring exposure at a young age with subsequent development of congestion heart failure, cardiomyopathy and the patient has an AICD in place/AICD pacer. The patient is also diabetic. The patient came into the hospital because of worsening shortness of breath. She had increased cough and congestion and she had a temperature of 102. And since then she was feeling some worsening exertional dyspnea and some increased in lower extremity edema. For that reason she was admitted to the hospital. Chest x-ray was done and showed cardiomegaly, pacer/AICD in place and some limited pulmonary infiltration the right lung specially in the right upper lobe was seen. She was started on broad-spectrum antibiotics and a pulmonary consultation was requested. She claims to have a mild intermittent bronchial asthma however she has not been maintained and inform of maintenance history medications or inhalers. No hemoptysis. No pleurisy. No COPD a lifetime nonsmoker although she has been exposed to secondhand cigarette smoking. No recurrent pneumonias. She is already feeling better. She is less short of breath compared to yesterday. She is currently on room air. No change in mental status. No other significant events overnight. Patient was reevaluated today on 12/12/2016, feeling much better, breathing a lot easier, patient clearly feels the difference between today and 2 days ago. Remains on diuretics for congestive heart failure, remains on antibiotics for presumptive community-acquired pneumonia involving mostly the right lung. Patient is also on steroids, she has a bit of leukocytosis with WBC count of 18.1, hemoglobin of 10.8, electrolytes and renal profile are noted to be normal. Clinically there is a lot of improvement noted. Objective - Vital Signs Vital signs: Vital Signs Temp 96.8 F L 12/12/16 08:00 Pulse 83 12/12/16 08:00 Resp 20 12/12/16 04:00 BP 116/56 12/12/16 08:00 Pulse Ox 93 L 12/12/16 08:00 Intake & Output 12/11/16 12/12/16 12/12/16 18:59 06:59 18:59 Intake Total 968.379 457.505 290 Output Total 350 Balance 968.379 107.505 290 Weight 103.4 kg Intake: IV 325 120 50 Heparin Sodium,Porcine/ 120 D5w Pmx 25,000 unit In Dextrose/Water 1 500ml. bag @ 10 UNITS/KG/HR 19. 95 mls/hr IV .Q24H [facility] Rx #:[id number] Insulin Regular 100 unit 45 10 In Sodium Chloride 0.9% 100 ml @ Titrate IV .Q0M [facility] Rx#:[id number] Sodium Chloride 0.9% 1, 160 120 40 000 ml @ 20 mls/hr IV . Q24H [facility] Rx#:[id number] Intake, IV Titration 643.379 87.505 Amount Azithromycin 500 mg In 250 Sodium Chloride 0.9% 250 ml @ 125 mls/hr IVPB DAILY [facility] Rx#:[id number] Heparin Sodium,Porcine/ 290.472 D5w Pmx 25,000 unit In Dextrose/Water 1 500ml. bag @ 10 UNITS/KG/HR 19. 95 mls/hr IV .Q24H [facility] Rx #:[id number] Insulin Regular 100 unit 52.907 87.505 In Sodium Chloride 0.9% 100 ml @ Titrate IV .Q0M [facility] Rx#:[id number] cefTRIAXone 1,000 mg In 50 Sodium Chloride 0.9% 50 ml @ 100 mls/hr IVPB Q24H [facility] Rx#:[id number] Oral 250 240 Output: Urine 350 Other: # Voids 1 # Bowel Movements 1 - Exam Physical Exam: Revealed a 51-year-old female in no form of distress. HEENT:[Neck is supple.] [No neck masses.] [No thyromegaly.] [No JVD.] Chest: [Minimal crackles at the bases, no rhonchi, no wheezes, no chest wall tenderness, symmetrical expansion was noted. Cardiac Exam: [Regular rate and rhythm, Normal S1 and S2, no S3 gallop, no murmur.] Abdomen: [Soft, nontender, no megaly, no rebound, no guarding, normal bowel sounds.] Extremities: [No clubbing, 1+ bipedal edema, no cyanosis.] Neurological Exam: [No focal neurologic deficit.] Musko skeletal: No limitations in range of motion,, muscle strength is adequate bilaterally. Psychiatric: Normal mood and affect, normal mental status examination. Skin: No evidence of rashes. No ulcerations. Lymphatic: No lymphadenopathy noted. - Labs CBC & Chem 7: 12/11/16 05:32 12/11/16 05:32 Labs: Abnormal Lab Results - Last 24 Hours (Table) 12/11/16 12/11/16 12/11/16 Range/Units 11:53 14:09 16:15 POC Glucose (mg/dL) 293 H 303 H 172 H (75-99) mg/dL 12/11/16 12/11/16 12/11/16 Range/Units 18:02 19:53 21:55 POC Glucose (mg/dL) 193 H 250 H 318 H (75-99) mg/dL 12/11/16 12/12/16 12/12/16 Range/Units 23:59 02:00 03:50 POC Glucose (mg/dL) 299 H 187 H 206 H (75-99) mg/dL 12/12/16 12/12/16 12/12/16 Range/Units 05:53 08:01 10:00 POC Glucose (mg/dL) 182 H 178 H 318 H (75-99) mg/dL Microbiology - Last 24 Hours (Table) 12/11/16 12:15 Gram Stain - Preliminary Sputum Sputum Culture - Preliminary 12/10/16 14:40 Blood Culture - Preliminary Blood No Growth after 24 hours Assessment and Plan Plan: 1 acute right lung pneumonia with leukocytosis and fever or increased shortness of breath, community-acquired, 2 worsening shortness of breath secondary to above 3 nonischemic cardiomyopathy with a component acute congestive heart failure, systolic in nature and LV dysfunction related. 4 VSD status post closure at the age of 3 5 mild intermittent bronchial asthma per history and the patient has not been maintained on any form of maintenance inhalers 6 obesity with a BMI of 44.3 7 pacemaker/AICD placement in the patient's current cardiac rhythm is paced 8 diabetes mellitus with diabetic retinopathy and diabetic gastroparesis and diabetic neuropathy 9 chronic back pain with degenerative disc disease involving L5-S1 10 chronic difficulties with mobility and gait 11 hyperlipidemia 12 hypertension 13 fibromyalgia 14 acid reflux Recommendation: Continue present treatment plan including antibiotics, continue diuretics, patient is not quite ready for discharge planning, but hopefully she will be in the next 24-48 hours. We'll continue to follow. Time with Patient: Less than 30
--- NOTE | 2016-12-12 14:05 | P.PN ---
Subjective Progress Note Date: 12/12/16 This is a 51-year-old female one of Dr. 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 Johnson and Dr. Glynn, history of diabetes mellitus type 2 , hyperlipidemia, hypertension and hypertensive cardiovascular disease, VSD status post repair, mild intermittent bronchial asthma, history of the obesity, possible obstructive sleep apnea, anxiety. Patient presented to [facility] emergency center with complaints of shortness of breath, cough and congestion with temperature of 102 along with lower extremity edema. Chest x-ray showed cardiomegaly with pacemaker/AICD in place and limited pulmonary infiltration in the right lung especially in the right upper lobe. She was started on IV antibiotics and consults were requested for pulmonary medicine cardiology. 12/12: Patient has been seen and followed by bank clerk, Dr. Toscano. Borderline elevated troponin is not suggestive of acute coronary syndrome. Possibly secondary to pneumonia. Consider stress test as an outpatient. Echocardiogram revealed an ejection fraction of 30-35%, mild mitral regurgitation, mild tricuspid regurgitation, mild pulmonary hypertension, borderline concentric left ventricular hypertrophy. She is followed by pulmonary medicine, Dr. Collins. Patient continues to complain of shortness of breath, cough and sputum production although she states she is better from admission. She is currently on ceftriaxone and azithromycin. Prednisone and Pulmicort added. Patient is currently on insulin drip which will be transitioned over to Lantus and scheduled Humalog, Humalog scale. Blood culture showing no growth at 24 hours and sputum alter is in progress. Patient states that she is planning for bariatric sleeve procedure in April of this year with Dr. Holley. Clarified patient's home Lasix dose which is 80 mg daily. Pulse ox is 92-94% on room air Objective - Vital Signs Vital signs: Vital Signs Temp 97.7 F 12/12/16 04:00 Pulse 70 12/12/16 04:00 Resp 20 12/12/16 04:00 BP 108/64 12/12/16 04:00 Pulse Ox 92 L 12/12/16 04:00 Intake & Output 12/11/16 12/12/16 12/12/16 18:59 06:59 18:59 Intake Total 968.379 457.505 240 Output Total 350 Balance 968.379 107.505 240 Weight 103.4 kg Intake: IV 325 120 Heparin Sodium,Porcine/ 120 D5w Pmx 25,000 unit In Dextrose/Water 1 500ml. bag @ 10 UNITS/KG/HR 19. 95 mls/hr IV .Q24H [facility] Rx #:[id number] Insulin Regular 100 unit 45 In Sodium Chloride 0.9% 100 ml @ Titrate IV .Q0M [facility] Rx#:[id number] Sodium Chloride 0.9% 1, 160 120 000 ml @ 20 mls/hr IV . Q24H [facility] Rx#:[id number] Intake, IV Titration 643.379 87.505 Amount Azithromycin 500 mg In 250 Sodium Chloride 0.9% 250 ml @ 125 mls/hr IVPB DAILY [facility] Rx#:[id number] Heparin Sodium,Porcine/ 290.472 D5w Pmx 25,000 unit In Dextrose/Water 1 500ml. bag @ 10 UNITS/KG/HR 19. 95 mls/hr IV .Q24H [facility] Rx #:[id number] Insulin Regular 100 unit 52.907 87.505 In Sodium Chloride 0.9% 100 ml @ Titrate IV .Q0M [facility] Rx#:[id number] cefTRIAXone 1,000 mg In 50 Sodium Chloride 0.9% 50 ml @ 100 mls/hr IVPB Q24H [facility] Rx#:[id number] Oral 250 240 Output: Urine 350 Other: # Voids 1 # Bowel Movements 1 - Exam General appearance: mild distress, obese - EENT Eyes: anicteric sclerae, PERRLA, no ptosis, no scleral icterus, normal appearance ENT: normal oropharynx, no thrush Ears: bilateral: normal - Neck Neck: no lymphadenopathy, normal ROM, no rigidity, no stridor, no thyromegaly Carotids: bilateral: upstroke normal Thyroid: bilateral: normal size - Respiratory Respiratory: bilateral: diminished, wheezing, prolonged expiration, scattered rhonchi negative: dullness, rales, prolonged inspiration - Cardiovascular Rhythm: regular Heart sounds: normal: S1, S2 Abnormal Heart Sounds: systolic murmur (There is AICD/permanent pacemaker) - Gastrointestinal General gastrointestinal: normal bowel sounds, soft, no splenomegaly, no tenderness, no umbilical hernia, no ventral hernia - Integumentary Integumentary: normal, normal turgor, ulcer (Left heel.) - Neurologic Neurologic: CNII-XII intact - Musculoskeletal Musculoskeletal: gait normal, strength equal bilaterally - Psychiatric Psychiatric: A&O x's 3, appropriate affect, intact judgment & insight - Labs CBC & Chem 7: 12/11/16 05:32 12/11/16 05:32 Labs: Abnormal Lab Results - Last 24 Hours (Table) 12/10/16 12/11/16 12/11/16 Range/Units 19:28 10:27 11:53 POC Glucose (mg/dL) 204 H 293 H (75-99) mg/dL Hemoglobin A1c 11.0 H (4.2-6.1) % 12/11/16 12/11/16 12/11/16 Range/Units 14:09 16:15 18:02 POC Glucose (mg/dL) 303 H 172 H 193 H (75-99) mg/dL Hemoglobin A1c (4.2-6.1) % 12/11/16 12/11/16 12/11/16 Range/Units 19:53 21:55 23:59 POC Glucose (mg/dL) 250 H 318 H 299 H (75-99) mg/dL Hemoglobin A1c (4.2-6.1) % 12/12/16 12/12/16 12/12/16 Range/Units 02:00 03:50 05:53 POC Glucose (mg/dL) 187 H 206 H 182 H (75-99) mg/dL Hemoglobin A1c (4.2-6.1) % 12/12/16 Range/Units 08:01 POC Glucose (mg/dL) 178 H (75-99) mg/dL Hemoglobin A1c (4.2-6.1) % Microbiology - Last 24 Hours (Table) 12/11/16 12:15 Gram Stain - Preliminary Sputum Sputum Culture - Preliminary 12/10/16 14:40 Blood Culture - Preliminary Blood No Growth after 24 hours Assessment and Plan Plan: 1. Acute right lung pneumonia with signs of sepsis with leukocytosis and fever. DuoNeb treatments changed to scheduled 4 times daily and every 4 hours as needed, Pulmicort added at 0.5 mg twice daily, continue ceftriaxone, azithromycin, Phenergan with codeine. 2. History of congenital cardiomyopathy post AICD. Continue metoprolol 50 mg the morning and 100 mg at bedtime, continue Lasix 80 mg orally once every day, Aldactone 25 mg daily. 3. Diabetes mellitus type 2. Insulin drip and transitioned to Lantus 45 units in the morning, Humalog 15 units 3 times daily with meals and Humalog scale. 4. Diabetic polyneuropathy. Continue gabapentin as taken at home, Cymbalta 60 mg orally twice every day, amitriptyline 40 mg at bedtime. 5. Restless leg syndrome. Continue patient on ropinirole 1 mg in the morning and 2 mg at bedtime. 6. Hyperlipidemia. Continue patient on Lipitor 20 mg orally once every day. 7. Vitamin D deficiency. Continue vitamin D 5000 units twice a day. 8. Obesity with possible obstructive sleep apnea. 9. Hypertension and hypertensive cardiovascular disease. Continue metoprolol 50 mg in the morning and 100 mg at bedtime. 10. Mild intermittent asthma the history. 11. Patient is a full code. Discharge plan: Return home in the next 24-48 hours. Impression and plan of care have been directed as dictated by the signing physician. Radha Almeida nurse practitioner acting as scribe for signing physician.
--- NOTE | 2016-12-12 14:41 | PN ---
PROGRESS NOTE This patient has been admitted with cough, fever with findings suggestive of pneumonia. She is feeling better. She is still coughing with expectoration. Patient remains afebrile. Blood pressure is 116/56 mmHg, oxygen saturation is 93%. Heart rate is 80 per minute, first and second heart sounds are normal. Lungs reveal bilateral scattered wheezes. Patient's electrolytes are normal. Patient's echocardiogram revealed severely impaired left ventricular systolic function suggestive of dilated cardiomyopathy. At present, there is no evidence of any significant left ventricular failure. We will continue the patient on current medications. MMODL / IJN: [id number] /
[2016-12-12 14:49] VITALS: BMI 44.5
--- NOTE | 2016-12-12 15:54 | US ---
EXAMINATION TYPE: US abdomen limited DATE OF EXAM: 12/12/2016 COMPARISON: CT & US CLINICAL HISTORY: RUQ, elevated alk phos. EXAM MEASUREMENTS: Liver Length: 14.4 cm Gallbladder Wall: 0.4 cm CBD: 0.5 cm Right Kidney: 11.5 x 5.1 x 5.1 cm morbidly obese patient Pancreas: visualized portions wnl Liver: wnl Gallbladder: multiple tiny mobile stones, thickened wall, Evidence for sonographic Sheridan's sign: Yes CBD: wnl Right Kidney: No hydronephrosis or masses seen IMPRESSION: 1. Cholelithiasis. Correlate for cholecystitis.
[2016-12-12] MEDS: IPRATROPIUM-ALBUTEROL 3 ML NEB INHALATION SCH ×5 (16:20→20:06)
[2016-12-12 17:08] LABS: Glucose,Whole Blood 344 mg/dL (75-99)
[2016-12-12] MEDS ORDERED: Dulaglutide [Trulicity] 1.5 MG/0.5 ML SQ SCH (20:00)
[2016-12-12] MEDS: BUDESONIDE 0.5 MG/2 ML NEBU INHALATION SCH (20:06)
[2016-12-12] MEDS: ATORVASTATIN 20 MG TAB PO SCH (20:06)
[2016-12-12 20:51] LABS: Glucose,Whole Blood 355 mg/dL (75-99)
[2016-12-13 06:11] LABS: Glucose,Whole Blood 240 mg/dL (75-99)
[2016-12-13] MEDS: INSULIN LISPRO (humaLOG) 300 UNIT/3 ML VIAL SQ SCH ×7 (06:56→21:47)
[2016-12-13 06:59] LABS: Basophils % (A) 0 %; CH 30.6; Eosinophils # (A) 0.1 k/uL (0-0.7); Eosinophils % (A) 0 %; HCT 34.9 % (34.0-46.0); HDW 2.48; Luc # (Auto) 0.22; Luc % (Auto) 1; Lymphocytes # (A) 2.8 k/uL (1.0-4.8); Lymphocytes % (A) 17 %; MCH 30.2 pg (25.0-35.0); MCHC 31.4 g/dL (31.0-37.0); MCV 96.1 fL (80.0-100.0); Mean Platelet Volume 8.1; Monocytes # (A) 0.7 k/uL (0-1.0); Monocytes % (A) 4 %; Neutrophils # (A) 13.1 k/uL (1.3-7.7); Neutrophils % (A) 77 %; RBC 3.63 m/uL (3.80-5.40); RDW 14.4 % (11.5-15.5); WBC (Perox) 16.74
[2016-12-13] MEDS: PANTOPRAZOLE 40 MG TABLET PO SCH (07:00)
[2016-12-13 07:14] LABS: ALT 31 U/L (9-52); AST 24 U/L (14-36); Alkaline Phosphatase 176 U/L (38-126); Anion Gap 9 mmol/L; Blood Urea Nitrogen 32 mg/dL (7-17); Calcium 9.1 mg/dL (8.4-10.2); Carbon Dioxide 30 mmol/L (22-30); Chloride 99 mmol/L (98-107); Glucose 234 mg/dL (74-99); Non-African American GFR(MDRD) >60 (>60 ml/min/1.73 sqM); Potassium 5.2 mmol/L (3.5-5.1); Sodium 138 mmol/L (137-145); Total Bilirubin 0.3 mg/dL (0.2-1.3); Total Protein 6.8 g/dL (6.3-8.2)
[2016-12-13] MEDS: IPRATROPIUM-ALBUTEROL 3 ML NEB INHALATION SCH ×4 (08:56→21:53)
[2016-12-13] MEDS: BUDESONIDE 0.5 MG/2 ML NEBU INHALATION SCH ×2 (08:56→21:53)
[2016-12-13] MEDS: ASPIRIN 325 MG TAB PO SCH (09:36)
[2016-12-13] MEDS: GABAPENTIN 400 MG CAP PO SCH ×5 (09:36→23:36)
[2016-12-13] MEDS: AMITRIPTYLINE HCL 10 MG TAB PO SCH ×2 (09:36→21:45)
[2016-12-13] MEDS: valACYclovir 500 MG TAB PO SCH (09:36)
[2016-12-13] MEDS: FUROSEMIDE 80 MG TAB PO SCH (09:37)
[2016-12-13] MEDS: METOPROLOL TARTRATE 50 MG TAB PO SCH ×2 (09:37→21:46)
[2016-12-13] MEDS: DULoxetine HCL 60 MG CAPSULE.DR PO SCH ×2 (09:37→21:46)
[2016-12-13] MEDS: CHOLECALCIFEROL 1,000 UNIT TAB PO SCH ×2 (09:37→21:43)
[2016-12-13] MEDS: POTASSIUM CHLORIDE ER 10 MEQ TAB.ER.PRT PO SCH (09:37)
[2016-12-13] MEDS: AZITHROMYCIN 500 MG TAB PO SCH (09:38)
[2016-12-13] MEDS: predniSONE 20 MG TAB PO SCH (09:38)
[2016-12-13] MEDS: SPIRONOLACTONE 25 MG TAB PO SCH (09:38)
[2016-12-13] MEDS: LISINOPRIL 20 MG TAB PO SCH (09:39)
[2016-12-13] MEDS: INSULIN GLARGINE 100 UNIT/ML 10 ML VIAL SQ SCH (09:41)
--- NOTE | 2016-12-13 10:16 | P.PN ---
Subjective Progress Note Date: 12/13/16 This is a 51-year-old female one of Dr. 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 Johnson and Dr. Glynn, history of diabetes mellitus type 2 , hyperlipidemia, hypertension and hypertensive cardiovascular disease, VSD status post repair, mild intermittent bronchial asthma, history of the obesity, possible obstructive sleep apnea, anxiety. Patient presented to [facility] emergency center with complaints of shortness of breath, cough and congestion with temperature of 102 along with lower extremity edema. Chest x-ray showed cardiomegaly with pacemaker/AICD in place and limited pulmonary infiltration in the right lung especially in the right upper lobe. She was started on IV antibiotics and consults were requested for pulmonary medicine cardiology. 12/12: Patient has been seen and followed by fisheries diver, Dr. Toscano. Borderline elevated troponin is not suggestive of acute coronary syndrome. Possibly secondary to pneumonia. Consider stress test as an outpatient. Echocardiogram revealed an ejection fraction of 30-35%, mild mitral regurgitation, mild tricuspid regurgitation, mild pulmonary hypertension, borderline concentric left ventricular hypertrophy. She is followed by pulmonary medicine, Dr. Collins. Patient continues to complain of shortness of breath, cough and sputum production although she states she is better from admission. She is currently on ceftriaxone and azithromycin. Prednisone and Pulmicort added. Patient is currently on insulin drip which will be transitioned over to Lantus and scheduled Humalog, Humalog scale. Blood culture showing no growth at 24 hours and sputum alter is in progress. Patient states that she is planning for bariatric sleeve procedure in April of this year with Dr. Holley. Clarified patient's home Lasix dose which is 80 mg daily. Pulse ox is 92-94% on room air 12/13: Patient has been afebrile. Blood sugars have been negative quite high in the 300s and this morning at 234. Lantus will be increased to 60 units daily. Sputum culture remains in process. Patient states that she feels and nebulizers really helped her breathing. She continues have some wheezing and tightness. She is anxious to be discharged home. Patient ambulated and pulse ox dropped to 85% on room air. Patient be transferred to the [facility] floor and anticipate discharge home tomorrow. Objective - Vital Signs Vital signs: Vital Signs Temp 97.0 F L 12/13/16 04:00 Pulse 87 12/13/16 04:00 Resp 18 12/13/16 04:00 BP 136/69 12/13/16 04:00 Pulse Ox 92 L 12/13/16 04:00 Intake & Output 12/12/16 12/13/16 12/13/16 18:59 06:59 18:59 Intake Total 340 590 Output Total 750 Balance 340 -160 Weight 103.4 kg 102.2 kg Intake: IV 50 Insulin Regular 100 unit 10 In Sodium Chloride 0.9% 100 ml @ Titrate IV .Q0M [facility] Rx#:[id number] Sodium Chloride 0.9% 1, 40 000 ml @ 20 mls/hr IV . Q24H [facility] Rx#:[id number] Intake, IV Titration 50 50 Amount cefTRIAXone 1,000 mg In 50 50 Sodium Chloride 0.9% 50 ml @ 100 mls/hr IVPB Q24H [facility] Rx#:[id number] Oral 240 540 Output: Urine 750 Other: # Voids 2 - Exam General appearance: mild distress, obese - EENT Eyes: anicteric sclerae, PERRLA, no ptosis, no scleral icterus, normal appearance ENT: normal oropharynx, no thrush Ears: bilateral: normal - Neck Neck: no lymphadenopathy, normal ROM, no rigidity, no stridor, no thyromegaly Carotids: bilateral: upstroke normal Thyroid: bilateral: normal size - Respiratory Respiratory: bilateral: diminished, wheezing, prolonged expiration, scattered rhonchi negative: dullness, rales, prolonged inspiration - Cardiovascular Rhythm: regular Heart sounds: normal: S1, S2 Abnormal Heart Sounds: systolic murmur (There is AICD/permanent pacemaker) - Gastrointestinal General gastrointestinal: normal bowel sounds, soft, no splenomegaly, no tenderness, no umbilical hernia, no ventral hernia - Integumentary Integumentary: normal, normal turgor, ulcer (Left heel.) - Neurologic Neurologic: CNII-XII intact - Musculoskeletal Musculoskeletal: gait normal, strength equal bilaterally - Psychiatric Psychiatric: A&O x's 3, appropriate affect, intact judgment & insight - Labs CBC & Chem 7: 12/13/16 06:30 12/13/16 06:30 Labs: Abnormal Lab Results - Last 24 Hours (Table) 12/12/16 12/12/16 12/12/16 Range/Units 08:01 10:00 11:31 WBC (3.8-10.6) k/uL RBC (3.80-5.40) m/uL Hgb (11.4-16.0) gm/dL Neutrophils # (1.3-7.7) k/uL Potassium (3.5-5.1) mmol/L BUN (7-17) mg/dL Glucose (74-99) mg/dL POC Glucose (mg/dL) 178 H 318 H 324 H (75-99) mg/dL Alkaline Phosphatase (38-126) U/L 12/12/16 12/12/16 12/13/16 Range/Units 17:01 20:49 06:10 WBC (3.8-10.6) k/uL RBC (3.80-5.40) m/uL Hgb (11.4-16.0) gm/dL Neutrophils # (1.3-7.7) k/uL Potassium (3.5-5.1) mmol/L BUN (7-17) mg/dL Glucose (74-99) mg/dL POC Glucose (mg/dL) 344 H 355 H 240 H (75-99) mg/dL Alkaline Phosphatase (38-126) U/L 12/13/16 12/13/16 Range/Units 06:30 06:30 WBC 17.0 H (3.8-10.6) k/uL RBC 3.63 L (3.80-5.40) m/uL Hgb 11.0 L (11.4-16.0) gm/dL Neutrophils # 13.1 H (1.3-7.7) k/uL Potassium 5.2 H (3.5-5.1) mmol/L BUN 32 H (7-17) mg/dL Glucose 234 H (74-99) mg/dL POC Glucose (mg/dL) (75-99) mg/dL Alkaline Phosphatase 176 H (38-126) U/L Microbiology - Last 24 Hours (Table) 12/10/16 14:40 Blood Culture - Preliminary Blood No Growth after 48 hours Assessment and Plan Plan: 1. Acute right lung pneumonia with signs of sepsis with leukocytosis and fever. DuoNeb treatments changed to scheduled 4 times daily and every 4 hours as needed, Pulmicort added at 0.5 mg twice daily, continue ceftriaxone, azithromycin, Phenergan with codeine. 2. History of congenital cardiomyopathy post AICD. Continue metoprolol 50 mg the morning and 100 mg at bedtime, continue Lasix 80 mg orally once every day, Aldactone 25 mg daily. 3. Diabetes mellitus type 2. Insulin drip and transitioned to Lantus 60 units in the morning, Humalog 15 units 3 times daily with meals and Humalog scale. 4. Diabetic polyneuropathy. Continue gabapentin as taken at home, Cymbalta 60 mg orally twice every day, amitriptyline 40 mg at bedtime. 5. Restless leg syndrome. Continue patient on ropinirole 1 mg in the morning and 2 mg at bedtime. 6. Hyperlipidemia. Continue patient on Lipitor 20 mg orally once every day. 7. Vitamin D deficiency. Continue vitamin D 5000 units twice a day. 8. Obesity with possible obstructive sleep apnea. 9. Hypertension and hypertensive cardiovascular disease. Continue metoprolol 50 mg in the morning and 100 mg at bedtime. 10. Mild intermittent asthma history. 11. Patient is a full code. Discharge plan: Return home in the next 24 hours. Impression and plan of care have been directed as dictated by the signing physician. Radha Almeida nurse practitioner acting as scribe for signing physician.
[2016-12-13 12:01] LABS: Glucose,Whole Blood 237 mg/dL (75-99)
--- NOTE | 2016-12-13 12:43 | P.PN ---
Subjective Progress Note Date: 12/13/16 Principal diagnosis: Acute right lung pneumonia, clinically acquired, and acute on chronic congestive heart failure. This is a 51-year-old female patient obese with a BMI of 44, also with known history of congenital heart disease with VSD requiring exposure at a young age with subsequent development of congestion heart failure, cardiomyopathy and the patient has an AICD in place/AICD pacer. The patient is also diabetic. The patient came into the hospital because of worsening shortness of breath. She had increased cough and congestion and she had a temperature of 102. And since then she was feeling some worsening exertional dyspnea and some increased in lower extremity edema. For that reason she was admitted to the hospital. Chest x-ray was done and showed cardiomegaly, pacer/AICD in place and some limited pulmonary infiltration the right lung specially in the right upper lobe was seen. She was started on broad-spectrum antibiotics and a pulmonary consultation was requested. She claims to have a mild intermittent bronchial asthma however she has not been maintained and inform of maintenance history medications or inhalers. No hemoptysis. No pleurisy. No COPD a lifetime nonsmoker although she has been exposed to secondhand cigarette smoking. No recurrent pneumonias. She is already feeling better. She is less short of breath compared to yesterday. She is currently on room air. No change in mental status. No other significant events overnight. Patient was reevaluated today on 12/12/2016, feeling much better, breathing a lot easier, patient clearly feels the difference between today and 2 days ago. Remains on diuretics for congestive heart failure, remains on antibiotics for presumptive community-acquired pneumonia involving mostly the right lung. Patient is also on steroids, she has a bit of leukocytosis with WBC count of 18.1, hemoglobin of 10.8, electrolytes and renal profile are noted to be normal. Clinically there is a lot of improvement noted. The patient was seen again today 12/13/2016 in follow-up on the selective care unit. She is currently awake and alert in no acute distress. She is sitting up in bed. She is breathing easier today as compared to yesterday. She still has some dyspnea on exertion. She did de saturate into the 80s while walking while on room air. Maintaining O2 saturations in the 90s at rest on room air. Sputum culture revealed no growth. Blood cultures revealed no growth. White count 17.0, trending down. She remains on ceftriaxone and Zithromax. She is on bronchodilators along with Pulmicort inhalations. She is on a prednisone taper. He remains on Lasix 80 mg daily as well. Objective - Vital Signs Vital signs: Vital Signs Temp 96.3 F L 12/13/16 08:00 Pulse 76 12/13/16 09:15 Resp 28 H 12/13/16 10:44 BP 97/50 12/13/16 08:00 Pulse Ox 85 L 12/13/16 10:44 Intake & Output 12/12/16 12/13/16 12/13/16 18:59 06:59 18:59 Intake Total 340 590 275 Output Total 750 Balance 340 -160 275 Weight 103.4 kg 102.2 kg Intake: IV 50 Insulin Regular 100 unit 10 In Sodium Chloride 0.9% 100 ml @ Titrate IV .Q0M [facility] Rx#:[id number] Sodium Chloride 0.9% 1, 40 000 ml @ 20 mls/hr IV . Q24H [facility] Rx#:[id number] Intake, IV Titration 50 50 Amount cefTRIAXone 1,000 mg In 50 50 Sodium Chloride 0.9% 50 ml @ 100 mls/hr IVPB Q24H [facility] Rx#:[id number] Oral 240 540 275 Output: Urine 750 Other: # Voids 2 - Exam GENERAL EXAM: Obese. Alert, active, comfortable in no apparent distress. HEAD: Normocephalic. EYES: Normal reaction of pupils, equal size. NOSE: Clear with pink turbinates. THROAT: No erythema or exudates. NECK: No masses, no JVD. CHEST: No chest wall deformity. LUNGS: Equal air entry with crackles in the bilateral posterior bases. Diminished.. CVS: S1 and S2 normal with audible murmur, regular rhythm. ABDOMEN: No hepatosplenomegaly, normal bowel sounds, no guarding or rigidity. SPINE: No scoliosis or deformity SKIN: No rashes CENTRAL NERVOUS SYSTEM: No focal deficits, tone is normal in all 4 extremities. EXTREMITIES: There is 1+ peripheral edema. No clubbing, no cyanosis. Peripheral pulses are intact. - Labs CBC & Chem 7: 12/13/16 06:30 12/13/16 06:30 Labs: Abnormal Lab Results - Last 24 Hours (Table) 12/12/16 12/12/16 12/13/16 Range/Units 17:01 20:49 06:10 WBC (3.8-10.6) k/uL RBC (3.80-5.40) m/uL Hgb (11.4-16.0) gm/dL Neutrophils # (1.3-7.7) k/uL Potassium (3.5-5.1) mmol/L BUN (7-17) mg/dL Glucose (74-99) mg/dL POC Glucose (mg/dL) 344 H 355 H 240 H (75-99) mg/dL Alkaline Phosphatase (38-126) U/L 12/13/16 12/13/16 12/13/16 Range/Units 06:30 06:30 11:51 WBC 17.0 H (3.8-10.6) k/uL RBC 3.63 L (3.80-5.40) m/uL Hgb 11.0 L (11.4-16.0) gm/dL Neutrophils # 13.1 H (1.3-7.7) k/uL Potassium 5.2 H (3.5-5.1) mmol/L BUN 32 H (7-17) mg/dL Glucose 234 H (74-99) mg/dL POC Glucose (mg/dL) 237 H (75-99) mg/dL Alkaline Phosphatase 176 H (38-126) U/L Microbiology - Last 24 Hours (Table) 12/11/16 12:15 Gram Stain - Final Sputum Sputum Culture - Final 12/10/16 14:40 Blood Culture - Preliminary Blood No Growth after 48 hours Assessment and Plan Plan: Impression: 1 acute right lung pneumonia with leukocytosis and fever or increased shortness of breath, community-acquired, 2 worsening shortness of breath secondary to above 3 nonischemic cardiomyopathy with a component acute congestive heart failure, systolic in nature and LV dysfunction related. 4 VSD status post closure at the age of 3 5 mild intermittent bronchial asthma per history and the patient has not been maintained on any form of maintenance inhalers 6 obesity with a BMI of 44.3 7 pacemaker/AICD placement in the patient's current cardiac rhythm is paced 8 diabetes mellitus with diabetic retinopathy and diabetic gastroparesis and diabetic neuropathy 9 chronic back pain with degenerative disc disease involving L5-S1 10 chronic difficulties with mobility and gait 11 hyperlipidemia 12 hypertension 13 fibromyalgia 14 acid reflux Plan: The patient was seen and evaluated by Dr. Collins. She is improved from the pulmonary standpoint. We'll continue with her current medications. She did decrease into the 80s while walking in the hallway on room air. She will stay another 24 hours. We'll continue to increase her activity as tolerated. We'll continue to follow. I, the cosigning physician, performed a history of physical on the patient. Lung sounds with crackles in the bilateral posterior bases. Maintaining O2 saturations in the 90s on 2 L/m per nasal cannula. I discussed the assessment and plan of care with my nurse practitioner, Tabatha Alicea. I attest to the note is dictated above by her.
[2016-12-13 16:23] LABS: Glucose,Whole Blood 411 mg/dL (75-99)
[2016-12-13 20:58] LABS: Glucose,Whole Blood 389 mg/dL (75-99)
[2016-12-13] MEDS: ATORVASTATIN 20 MG TAB PO SCH (21:46)
[2016-12-14 00:57] VITALS: RESP 16; TEMP 98
[2016-12-14] MEDS: PROMETHAZ-COD 6.25-10 MG/5 ML 5 ML CUP PO PRN (01:56)
[2016-12-14 07:24] LABS: Glucose,Whole Blood 203 mg/dL (75-99)
[2016-12-14] MEDS: BUDESONIDE 0.5 MG/2 ML NEBU INHALATION SCH (07:26)
[2016-12-14] MEDS: IPRATROPIUM-ALBUTEROL 3 ML NEB INHALATION SCH ×2 (07:29→12:30)
[2016-12-14 07:37] VITALS: BP 106/57
[2016-12-14] MEDS: INSULIN GLARGINE 100 UNIT/ML 10 ML VIAL SQ SCH (08:14)
[2016-12-14] MEDS: CHOLECALCIFEROL 1,000 UNIT TAB PO SCH (08:15)
[2016-12-14] MEDS: GABAPENTIN 400 MG CAP PO SCH (08:16)
[2016-12-14] MEDS: FUROSEMIDE 80 MG TAB PO SCH (08:17)
[2016-12-14] MEDS: predniSONE 20 MG TAB PO SCH (08:17)
[2016-12-14] MEDS: PANTOPRAZOLE 40 MG TABLET PO SCH (08:17)
[2016-12-14] MEDS: AMITRIPTYLINE HCL 10 MG TAB PO SCH (08:17)
[2016-12-14] MEDS: ASPIRIN 325 MG TAB PO SCH (08:18)
[2016-12-14] MEDS: LISINOPRIL 20 MG TAB PO SCH (08:18)
[2016-12-14] MEDS: AZITHROMYCIN 500 MG TAB PO SCH (08:18)
[2016-12-14] MEDS: METOPROLOL TARTRATE 50 MG TAB PO SCH (08:18)
[2016-12-14] MEDS: DULoxetine HCL 60 MG CAPSULE.DR PO SCH (08:18)
[2016-12-14] MEDS: valACYclovir 500 MG TAB PO SCH (08:18)
[2016-12-14] MEDS: SPIRONOLACTONE 25 MG TAB PO SCH (08:19)
[2016-12-14] MEDS: POTASSIUM CHLORIDE ER 10 MEQ TAB.ER.PRT PO SCH (08:19)
[2016-12-14] MEDS: INSULIN LISPRO (humaLOG) 300 UNIT/3 ML VIAL SQ SCH ×4 (08:20→12:38)
--- NOTE | 2016-12-14 10:54 | P.PN ---
Subjective Progress Note Date: 12/14/16 Principal diagnosis: Acute right lung pneumonia, and acute on chronic congestive heart failure This is a 51-year-old female patient obese with a BMI of 44, also with known history of congenital heart disease with VSD requiring exposure at a young age with subsequent development of congestion heart failure, cardiomyopathy and the patient has an AICD in place/AICD pacer. The patient is also diabetic. The patient came into the hospital because of worsening shortness of breath. She had increased cough and congestion and she had a temperature of 102. And since then she was feeling some worsening exertional dyspnea and some increased in lower extremity edema. For that reason she was admitted to the hospital. Chest x-ray was done and showed cardiomegaly, pacer/AICD in place and some limited pulmonary infiltration the right lung specially in the right upper lobe was seen. She was started on broad-spectrum antibiotics and a pulmonary consultation was requested. She claims to have a mild intermittent bronchial asthma however she has not been maintained and inform of maintenance history medications or inhalers. No hemoptysis. No pleurisy. No COPD a lifetime nonsmoker although she has been exposed to secondhand cigarette smoking. No recurrent pneumonias. She is already feeling better. She is less short of breath compared to yesterday. She is currently on room air. No change in mental status. No other significant events overnight. Patient was reevaluated today on 12/12/2016, feeling much better, breathing a lot easier, patient clearly feels the difference between today and 2 days ago. Remains on diuretics for congestive heart failure, remains on antibiotics for presumptive community-acquired pneumonia involving mostly the right lung. Patient is also on steroids, she has a bit of leukocytosis with WBC count of 18.1, hemoglobin of 10.8, electrolytes and renal profile are noted to be normal. Clinically there is a lot of improvement noted. The patient was seen again today 12/13/2016 in follow-up on the selective care unit. She is currently awake and alert in no acute distress. She is sitting up in bed. She is breathing easier today as compared to yesterday. She still has some dyspnea on exertion. She did de saturate into the 80s while walking while on room air. Maintaining O2 saturations in the 90s at rest on room air. Sputum culture revealed no growth. Blood cultures revealed no growth. White count 17.0, trending down. She remains on ceftriaxone and Zithromax. She is on bronchodilators along with Pulmicort inhalations. She is on a prednisone taper. He remains on Lasix 80 mg daily as well. On 12/14/2016 patient is seen resting comfortably in bed, denies any specific complaints. She states her breathing is much improved, denies chest congestion , wheezing or chest pain. She is currently on 2 L per nasal cannula with saturation around 96%. this morning room air O2 sat was at 87%, home oxygen is being arranged before discharge home. Patient is quite stable from pulmonary standpoint. She will follow-up with Dr. Richards in the office in 2 weeks. She is clear for discharge from the pulmonary standpoint. On examination lung sounds are clear, no rhonchi, no rales no wheezes. Patient is awake alert, she has been ambulating about the room and in the unit with no significant respiratory distress. Objective - Vital Signs Vital signs: Vital Signs Temp 98.0 F 12/14/16 07:05 Pulse 88 12/14/16 07:55 Resp 16 12/14/16 07:05 BP 106/57 12/14/16 07:05 Pulse Ox 96 12/14/16 07:10 Intake & Output 12/13/16 12/14/16 12/14/16 18:59 06:59 18:59 Intake Total 907 50 Balance 907 50 Weight 101.5 kg Intake: Intake, IV Titration 50 50 Amount cefTRIAXone 1,000 mg In 50 50 Sodium Chloride 0.9% 50 ml @ 100 mls/hr IVPB Q24H [facility] Rx#:[id number] Oral 857 Other: # Voids 2 2 - Exam GENERAL EXAM: Obese. Alert, active, comfortable in no apparent distress. HEAD: Normocephalic. EYES: Normal reaction of pupils, equal size. NOSE: Clear with pink turbinates. THROAT: No erythema or exudates. NECK: No masses, no JVD. CHEST: No chest wall deformity. LUNGS: Equal air entry, no crackles, no rales no wheezes. CVS: S1 and S2 normal with audible murmur, regular rhythm. ABDOMEN: No hepatosplenomegaly, normal bowel sounds, no guarding or rigidity. SPINE: No scoliosis or deformity SKIN: No rashes CENTRAL NERVOUS SYSTEM: No focal deficits, tone is normal in all 4 extremities. EXTREMITIES: There is 1+ peripheral edema. No clubbing, no cyanosis. Peripheral pulses are intact. - Labs CBC & Chem 7: 12/13/16 06:30 12/13/16 06:30 Labs: Abnormal Lab Results - Last 24 Hours (Table) 12/13/16 12/13/16 12/13/16 Range/Units 11:51 16:21 20:57 POC Glucose (mg/dL) 237 H 411 H 389 H (75-99) mg/dL 12/14/16 Range/Units 07:12 POC Glucose (mg/dL) 203 H (75-99) mg/dL Microbiology - Last 24 Hours (Table) 12/10/16 14:40 Blood Culture - Preliminary Blood No Growth after 72 hours 12/11/16 12:15 Gram Stain - Final Sputum Sputum Culture - Final Assessment and Plan Plan: Assessment and Plan Plan: Impression: 1 acute right lung pneumonia with leukocytosis and fever or increased shortness of breath, community-acquired, 2 worsening shortness of breath secondary to above 3 nonischemic cardiomyopathy with a component acute congestive heart failure, systolic in nature and LV dysfunction related. 4 VSD status post closure at the age of 3 5 mild intermittent bronchial asthma per history and the patient has not been maintained on any form of maintenance inhalers 6 obesity with a BMI of 44.3 7 pacemaker/AICD placement in the patient's current cardiac rhythm is paced 8 diabetes mellitus with diabetic retinopathy and diabetic gastroparesis and diabetic neuropathy 9 chronic back pain with degenerative disc disease involving L5-S1 10 chronic difficulties with mobility and gait 11 hyperlipidemia 12 hypertension 13 fibromyalgia 14 acid reflux Plan: The patient was seen and evaluated by Dr. Collins. She is stable for discharge from pulmonary standpoint, follow-up appointment with Dr. Richards set up for December 27. Patient did desaturate to 88% on room air this morning, home oxygen is being arranged before she goes home. Patient is being discharged home on outpatient course of oral Zithromax and cefpodoxime for 7 days. I performed a history & physical examination of the patient and discussed their management with my nurse practitioner, Rebecca Suggs. I reviewed the nurse practitioner's note and agree with the documented findings and plan of care. Lung sounds are clear, with no evidence of crackles, wheezing or rhonchi. She is clear for discharge from pulmonary standpoint. I attest the documentation by the nurse practitioner
[2016-12-14 12:22] LABS: Glucose,Whole Blood 299 mg/dL (75-99)
[2016-12-14 12:42] VITALS: PULSE 93
--- NOTE | 2016-12-16 13:40 | P.DS ---
Providers Date of admission: 12/10/16 16:07 Expected date of discharge: 12/14/16 Attending physician: Abdifatah Landon Consults: 12/10/16 16:15 Consult Physician Stat Consulting Provider: [facility] Consult Reason/Comments: Elevated troponin Do you want consulting provider notified?: Yes 12/10/16 19:04 Consult Physician Routine Consulting Provider: Raulito Zimmerman Consult Reason/Comments: Pneumonia Do you want consulting provider notified?: Yes Primary care physician: Anjel Vann [facility] Course: This is a 51-year-old female one of Dr. 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 Johnson and Dr. Glynn, history of diabetes mellitus type 2 , hyperlipidemia, hypertension and hypertensive cardiovascular disease, VSD status post repair, mild intermittent bronchial asthma, history of the obesity, possible obstructive sleep apnea, anxiety. Patient presented to [facility] emergency center with complaints of shortness of breath, cough and congestion with temperature of 102 along with lower extremity edema. Chest x-ray showed cardiomegaly with pacemaker/AICD in place and limited pulmonary infiltration in the right lung especially in the right upper lobe. She was started on IV antibiotics and consults were requested for pulmonary medicine cardiology. 12/12: Patient has been seen and followed by dean, Dr. Toscano. Borderline elevated troponin is not suggestive of acute coronary syndrome. Possibly secondary to pneumonia. Consider stress test as an outpatient. Echocardiogram revealed an ejection fraction of 30-35%, mild mitral regurgitation, mild tricuspid regurgitation, mild pulmonary hypertension, borderline concentric left ventricular hypertrophy. She is followed by pulmonary medicine, Dr. Collins. Patient continues to complain of shortness of breath, cough and sputum production although she states she is better from admission. She is currently on ceftriaxone and azithromycin. Prednisone and Pulmicort added. Patient is currently on insulin drip which will be transitioned over to Lantus and scheduled Humalog, Humalog scale. Blood culture showing no growth at 24 hours and sputum alter is in progress. Patient states that she is planning for bariatric sleeve procedure in April of this year with Dr. Holley. Clarified patient's home Lasix dose which is 80 mg daily. Pulse ox is 92-94% on room air 12/13: Patient has been afebrile. Blood sugars have been negative quite high in the 300s and this morning at 234. Lantus will be increased to 60 units daily. Sputum culture remains in process. Patient states that she feels and nebulizers really helped her breathing. She continues have some wheezing and tightness. She is anxious to be discharged home. Patient ambulated and pulse ox dropped to 85% on room air. Patient be [facility] floor and anticipate discharge home tomorrow. 12/14: Patient's room air dropped to 87% and home oxygen and nebulizer has been ordered for home. She has been cleared by pulse or medicine for discharge home. Patient will be discharged home today in stable condition. Discharge diagnoses: 1. Acute right lung pneumonia with signs of sepsis with leukocytosis and fever. 2. History of congenital cardiomyopathy post AICD. 3. Diabetes mellitus type 2. 4. Diabetic polyneuropathy. 5. Restless leg syndrome. 6. Hyperlipidemia. 7. Vitamin D deficiency. 8. Obesity with possible obstructive sleep apnea. 9. Hypertension and hypertensive cardiovascular disease. 10. Mild intermittent asthma history. 11. Chronic hypoxic respiratory failure - new onset Discharge plan: Return home Impression and plan of care have been directed as dictated by the signing physician. Radha Almeida nurse practitioner acting as scribe for signing physician. Patient Condition at Discharge: Good Plan - Discharge Summary New Discharge Prescriptions: New Azithromycin [Zithromax] 500 mg PO DAILY #4 tab Budesonide [Pulmicort] 0.5 mg INHALATION RT-BID #60 neb Cefpodoxime Proxetil [Vantin] 200 mg PO Q12HR #14 tab Ipratropium-Albuterol Nebulize [Duoneb 0.5 mg-3 mg/3 ml Soln] 3 ml INHALATION RT-QID #120 neb predniSONE 10 mg PO DAILY #30 tab Continue rOPINIRole HCL [Requip] 1 mg PO QAM Atorvastatin [Lipitor] 20 mg PO HS DULoxetine HCL [Cymbalta] 60 mg PO BID Omeprazole [PriLOSEC] 20 mg PO AC-BRKFST Metoprolol Tartrate [Lopressor] 100 mg PO HS Dulaglutide [Trulicity] 1.5 mg SQ FR rOPINIRole HCL [Requip] 2 mg PO HS Metoprolol Tartrate [Lopressor] 50 mg PO QAM Amitriptyline HCl [Elavil] 20 mg PO HS Gabapentin 1,200 mg PO 5XD valACYclovir [Valtrex] 500 mg PO DAILY Cyclobenzaprine [Flexeril] 10 mg PO BID PRN PRN Reason: Pain Spironolactone [Aldactone] 25 mg PO DAILY Ramipril [Altace] 5 mg PO DAILY Amitriptyline HCl [Elavil] 10 mg PO QAM Insulin Aspart [NovoLOG Flexpen] See Protocol SQ ACHS PRN PRN Reason: Blood Sugar - High Insulin Glargine,Hum.rec.anlog [Basaglar Kwikpen U-100] 60 unit SQ QAM Aspirin 325 mg PO DAILY Potassium Chloride [Klor-Con 10] 10 meq PO DAILY Cholecalciferol [Vitamin D3] 5,000 unit PO BID Changed Furosemide [Lasix] 80 mg PO DAILY #0 Discontinued Furosemide [Lasix] 40 mg PO SUTUTHSA Discharge Medication List Atorvastatin [Lipitor] 20 mg PO HS 09/25/13 [History] rOPINIRole HCL [Requip] 1 mg PO QAM 09/25/13 [History] DULoxetine HCL [Cymbalta] 60 mg PO BID 12/03/14 [History] Metoprolol Tartrate [Lopressor] 100 mg PO HS 12/03/14 [History] Omeprazole [PriLOSEC] 20 mg PO AC-BRKFST 12/03/14 [History] Dulaglutide [Trulicity] 1.5 mg SQ FR 09/10/15 [History] rOPINIRole HCL [Requip] 2 mg PO HS 11/28/15 [History] Amitriptyline HCl [Elavil] 20 mg PO HS 11/29/15 [History] Gabapentin 1,200 mg PO 5XD 11/29/15 [History] Metoprolol Tartrate [Lopressor] 50 mg PO QAM 11/29/15 [History] Cyclobenzaprine [Flexeril] 10 mg PO BID PRN 04/04/16 [History] Ramipril [Altace] 5 mg PO DAILY 04/04/16 [History] Spironolactone [Aldactone] 25 mg PO DAILY 04/04/16 [History] valACYclovir [Valtrex] 500 mg PO DAILY 04/04/16 [History] Amitriptyline HCl [Elavil] 10 mg PO QAM 05/26/16 [History] Insulin Aspart [NovoLOG Flexpen] See Protocol SQ ACHS PRN 07/06/16 [History] Insulin Glargine,Hum.rec.anlog [Basaglar Kwikpen U-100] 60 unit SQ QAM 07/06/16 [History] Aspirin 325 mg PO DAILY 11/30/16 [History] Potassium Chloride [Klor-Con 10] 10 meq PO DAILY 11/30/16 [History] Cholecalciferol [Vitamin D3] 5,000 unit PO BID 12/10/16 [History] Azithromycin [Zithromax] 500 mg PO DAILY #4 tab 12/13/16 [Rx] Budesonide [Pulmicort] 0.5 mg INHALATION RT-BID #60 neb 12/13/16 [Rx] Cefpodoxime Proxetil [Vantin] 200 mg PO Q12HR #14 tab 12/13/16 [Rx] Furosemide [Lasix] 80 mg PO DAILY #0 12/13/16 [Rx] Ipratropium-Albuterol Nebulize [Duoneb 0.5 mg-3 mg/3 ml Soln] 3 ml INHALATION RT -QID #120 neb 12/13/16 [Rx] predniSONE 10 mg PO DAILY #30 tab 12/13/16 [Rx] Follow up Appointment(s)/Referral(s): Michelle Johnson MD [STAFF PHYSICIAN] - 2 Weeks (spoke to obstetrics gynecology md. office will call with appointment time.) Nikunj Richards DO [Doctor of Osteopathic Medicine] - 12/27/16 9:30 am Anjel Vann MD [Primary Care Provider] - 1 Week (Unable to make appointment. Please call to schedule appointment.) Patient Instructions/Handouts: Community Acquired Pneumonia (DC) Activity/Diet/Wound Care/Special Instructions: Home O2 and nebulizer ordered from [facility] #[id number] Cardiac, diabetic diet. [facility] ([phone]) Discharge Disposition: HOME WITH HOME HEALTH SERVICES
== END 2016-12-14 14:38 | disposition home health service (06) | DRG 871 ==
LOC: EC 13:15 → 6SEL 16:07 → 4MS4W 12-13 19:19
PROVIDERS: ADMIT Internal Medicine Geriatric Medicine; ATTEND Internal Medicine Geriatric Medicine
DX: A41.9 Sepsis, unspecified organism (principal); J18.9 Pneumonia, unspecified organism; I50.23 Acute on chronic systolic (congestive) heart failure; I42.4 Endocardial fibroelastosis; J96.11 Chronic respiratory failure with hypoxia; I11.0 Hypertensive heart disease with heart failure; I27.20 Pulmonary hypertension, unspecified; Z68.41 Body mass index [BMI] 40.0-44.9, adult; E87.1 Hypo-osmolality and hyponatremia; J44.0 Chronic obstructive pulmonary disease with (acute) lower respiratory infection; E66.01 Morbid (severe) obesity due to excess calories; I08.1 Rheumatic disorders of both mitral and tricuspid valves; E11.42 Type 2 diabetes mellitus with diabetic polyneuropathy; E11.43 Type 2 diabetes mellitus with diabetic autonomic (poly)neuropathy; E11.65 Type 2 diabetes mellitus with hyperglycemia; K31.84 Gastroparesis; E11.319 Type 2 diabetes mellitus with unspecified diabetic retinopathy without macular edema; M79.7 Fibromyalgia; G25.81 Restless legs syndrome; M51.36 Other intervertebral disc degeneration, lumbar region; G89.29 Other chronic pain; E55.9 Vitamin D deficiency, unspecified; J45.20 Mild intermittent asthma, uncomplicated; M51.37 Other intervertebral disc degeneration, lumbosacral region; M50.30 Other cervical disc degeneration, unspecified cervical region; F32.9 Major depressive disorder, single episode, unspecified; F41.9 Anxiety disorder, unspecified; K21.9 Gastro-esophageal reflux disease without esophagitis; E78.5 Hyperlipidemia, unspecified; Z79.82 Long term (current) use of aspirin; Z79.4 Long term (current) use of insulin; Z79.899 Other long term (current) drug therapy; Z95.810 Presence of automatic (implantable) cardiac defibrillator; Z86.79 Personal history of other diseases of the circulatory system; Z71.3 Dietary counseling and surveillance; Z87.74 Personal history of (corrected) congenital malformations of heart and circulatory system; Z77.22 Contact with and (suspected) exposure to environmental tobacco smoke (acute) (chronic); Z88.5 Allergy status to narcotic agent; Z88.8 Allergy status to other drugs, medicaments and biological substances; Z91.041 Radiographic dye allergy status
CPT/HCPCS: 36415; 71020; 76705; 80053; 80061; 82272; 82550; 82553; 83036; 83605; 83735; 83880; 84484; 85025; 85610; 85730; 87040; 87070; 87205; 87502; 93005; 93306; 94640; 94760; 96361; 96365; 96375; 96376; 99285

== ENCOUNTER → 2017-10-02 | Outpatient (CLI) | payer BC ==
[2017-10-02 11:02] VITALS: BMI 43.7
== END | disposition home or self-care (01) ==
LOC: BARWHC3 08:51
PROVIDERS: ATTEND Surgery
DX: E66.01 Morbid (severe) obesity due to excess calories (principal); Z68.41 Body mass index [BMI] 40.0-44.9, adult
CPT/HCPCS: 97804

== ENCOUNTER → 2018-03-12 | Outpatient (CLI) | payer MEDICARE, BC ==
[2018-03-12 14:51] VITALS: RESP 16; TEMP 97.4
--- NOTE | 2018-03-12 16:37 | P.HPBAR ---
Bariatric H&P - History & Physicial H&P Date: 03/12/18 History & Physicial: Visit/CC: Pre-Surg Patient initial contact: Initial weight: 99.972 kg Initial weight in pounds: 220.40 Height: Initial BMI: Last weight: Current weight: Current weight in pounds: Current BMI: [place] body weight (based on NIH guidelines): Excess body weight loss: The patient is a 52 year-old F who presents for Bariatric Assessment. Patient presents today for preoperative consultation. She has met all her insurance permits. She is waiting to be scheduled. We went over the risks and benefits of the gastric sleeve. Patient is morbidly obese with BMI greater than 40. Past Medical History Past Medical History: Asthma, Diabetes Mellitus, Eye Disorder, Fibromyalgia, GERD/Reflux, Hyperlipidemia, Hypertension Additional Past Medical History / Comment(s): Mild intermittent bronchial asthma , obesity, VSD, cardiomyopathy, pacer/AICD in place, diabetes mellitus, diabetic retinopathy, diabetic gastroparesis, diabetic peripheral neuropathy, history of genital herpes, RLS, chronic back pain with degenerative disc disease involving L5 and S1 in addition to cervical disc disease involving C4 and C5, difficulty with mobility and the patient uses a walker/motorized scooter for longer distances. Hyperlipidemia, hypertension, fibromyalgia, acid reflux History of Any Multi-Drug Resistant Organisms: None Reported Past Surgical History: AICD, Appendectomy, Heart Catheterization, Orthopedic Surgery, Pacemaker, Tonsillectomy Additional Past Surgical History / Comment(s): Sinus surgery with correction of a deviated nasal septum, pacer/AICD placement, bilateral eye surgery with vitrectomy, treatment of a wound in the left foot and diabetic foot ulcer, history of I&D of an axillary staphylococcal infection, PICC line insertion and removal, shoulder surgery for a frozen shoulder, colonoscopy, VSD repair at age of 3 Past Anesthesia/Blood Transfusion Reactions: Previous Problems w/ Anesthesia Additional Past Anesthesia/Blood Transfusion Reaction / Comm: pt states she wakes up "slow and emotional-CRIES". Type of Cardiac Device: Permanent Pacemaker, AICD Device Placement Date:: 08/04/2016 [employer]. Smoking Status: Never smoker - Past Family History Mother Family Medical History: Cancer, COPD Additional Family Medical History / Comment(s): lung cancer at age 73 Father Family Medical History: AICD/Pacemaker, Coronary Artery Disease (CAD), Diabetes Mellitus, Hypertension, Myocardial Infarction ([place]) Additional Family Medical History / Comment(s): [place] @ AGE 43 @ AGE 62 Brother(s) Family Medical History: Myocardial Infarction ([place]) Additional Family Medical History / Comment(s): HX [place] X 3 -1ST ONE @ AGE 39 Surgical - Exam Vital Signs Temp Resp 97.4 F L 16 03/12/18 14:49 03/12/18 14:49 - General well developed, no distress - Eyes PERRL - ENT normal pinna - Neck no masses - Respiratory normal expansion - Cardiovascular Rhythm: regular - Abdomen Abdomen: soft, non tender Bariatric Assessment & Plan Plan: Morbid obesity. Patient will undergo sleeve gastrectomy. She will be scheduled for surgery the next 2 weeks. Bariatric Checklist Checklist: Plan: Checklist: EGD: 1. Hiatal hernia: 2. H. Pylori: HgbA1c: Vitamin D: Smoking: Never smoker Primary care physician referral: hossein penaloza Psychiatry clearance: Cardiology clearance: Sleep study: Diet journal: VTE risk score: VTE risk level: Rehab needs at discharge:
== END ==
LOC: BARWHC3 14:29
PROVIDERS: ATTEND Surgery
DX: E66.01 Morbid (severe) obesity due to excess calories (principal)
CPT/HCPCS: 99211

== ENCOUNTER → 2018-03-30 | Outpatient (CLI) | payer MEDICARE, BC ==
[2018-03-30 14:33] LABS: Basophils # (A) 0.1 k/uL (0-0.2); Basophils % (A) 1 %; Eosinophils # (A) 0.2 k/uL (0-0.7); Eosinophils % (A) 2 %; HCT 39.4 % (34.0-46.0); HGB 12.4 gm/dL (11.4-16.0); Lymphocytes # (A) 3.6 k/uL (1.0-4.8); Lymphocytes % (A) 29 %; MCH 27.9 pg (25.0-35.0); MCHC 31.5 g/dL (31.0-37.0); MCV 88.6 fL (80.0-100.0); Mean Platelet Volume 7.3; Monocytes # (A) 0.6 k/uL (0-1.0); Monocytes % (A) 5 %; Neutrophils # (A) 7.6 k/uL (1.3-7.7); Neutrophils % (A) 62 %; Platelet Count 231 k/uL (150-450); RBC 4.45 m/uL (3.80-5.40); RDW 15.4 % (11.5-15.5); WBC 12.3 k/uL (3.8-10.6)
[2018-03-30 14:52] LABS: Albumin 4.2 g/dL (3.5-5.0); Calcium 9.5 mg/dL (8.4-10.2); Potassium 5.3 mmol/L (3.5-5.1); Total Bilirubin 0.7 mg/dL (0.2-1.3); Total Protein 7.4 g/dL (6.3-8.2)
== END | disposition home or self-care (01) ==
LOC: LABPAT 12:47
PROVIDERS: ATTEND Surgery
DX: Z01.818 Encounter for other preprocedural examination (principal); Z01.812 Encounter for preprocedural laboratory examination
CPT/HCPCS: 36415; 80053; 85025; 93005

== ENCOUNTER → 2018-04-03 | Outpatient (CLI) | payer MEDICARE, BC ==
--- NOTE | 2018-04-03 16:11 | XR ---
EXAMINATION TYPE: XR lumbar spine 2 or 3V DATE OF EXAM: 04/03/2018 COMPARISON: None HISTORY: Lumbar pain TECHNIQUE: Three-view lumbar spine FINDINGS: There 5 lumbar-type vertebral bodies. Pedicles are intact. There is loss of disc height L5- S1. Posterior disc space narrowing is present L3-4 L4-5. Remaining disc heights are preserved. Verteb ral body heights are preserved. IMPRESSION: 1. Mild degenerative disc changes lower lumbar spine
== END ==
LOC: RADXRMAIN 11:58
PROVIDERS: ATTEND Physical Medicine & Rehabilitation
DX: M51.36 Other intervertebral disc degeneration, lumbar region (principal)
CPT/HCPCS: 72100

== ENCOUNTER → 2018-04-13 | Outpatient (CLI) | payer MEDICARE, BC ==
[2018-04-13 22:30] LABS: Hemoglobin A1C 7.5 % (4.0-6.0)
== END ==
LOC: LABPAT 11:08
PROVIDERS: ATTEND Surgery
DX: Z01.812 Encounter for preprocedural laboratory examination (principal); E13.9 Other specified diabetes mellitus without complications
CPT/HCPCS: 83036

== ENCOUNTER 2018-04-18 06:24 | Inpatient (IN) | payer MEDICARE, BC ==
[~2018-04-18 06:24] MED LIST changes: +ACETAMINOPHEN TAB 500 MG TAB PO ONE; +DEXAMETHASONE SOD PHOSPHATE 10 MG/ML 1 ML VIAL IV ONE; +ENOXAPARIN 40 MG/0.4 ML SYRINGE SQ ONE; +LIDOCAINE 1% 20 ML VIAL (10MG/ML) FOR IV START INTRADERMA PRN; +MIDAZOLAM (PF) 2 MG/2 ML VIAL IV PRN; +ONDANSETRON 4 MG/2 ML VIAL IVP ONE; -ceFAZolin 1,000 MG in SODIUM CHLORIDE 0.9% IRRIGATIO 250 ML IRRIGATION ONE; -ceFAZolin 2 GM in SODIUM CHLORIDE 0.9% 100 ML IVPB ONE; +ceFAZolin IN SWFI 2 GM/20 ML SYRINGE IVP ONE; +fentaNYL (PF) 50 MCG/ML 2 ML AMP IV PRN
[2018-04-18] MEDS ORDERED: DEXTROSE 50%-WATER 50 ML SYRINGE IVP ONE (06:50)
[2018-04-18 06:59] LABS: Glucose,Whole Blood 61 mg/dL (75-99)
[2018-04-18] MEDS: LACTATED RINGERS 1,000 ML IV SCH ×3 (07:13→21:38)
[2018-04-18 07:14] LABS: Glucose,Whole Blood 135 mg/dL (75-99)
[2018-04-18] MEDS ORDERED: DEXAMETHASONE SOD PHOS (MDV) 100 MG/10 ML VIAL IV ONE (07:22)
[2018-04-18] MEDS ORDERED: PROPOFOL 10 MG/ML 20 ML VIAL IV ONE (07:54)
[2018-04-18] MEDS ORDERED: NEOSTIGMINE 1 MG/ML 10 ML VIAL ONE (07:54)
[2018-04-18] MEDS ORDERED: SUCCINYLCHOLINE CHLORIDE VIAL 200 MG/10 ML VIAL IV ONE (07:54)
[2018-04-18] MEDS ORDERED: ePHEDrine SULFATE/0.9% NACL/PF 50 MG/5 ML SYRINGE IV ONE (07:54)
[2018-04-18] MEDS ORDERED: MIDAZOLAM 2 MG/2 ML VIAL ONE (07:54)
[2018-04-18] MEDS ORDERED: LIDOCAINE 1% INJ 10MG/ML (20 ML MDV) ONE (07:54)
[2018-04-18] MEDS ORDERED: fentaNYL (PF) 50 MCG/ML 2 ML AMP ONE (07:54)
[2018-04-18] MEDS ORDERED: PHENYLEPHRINE-0.9% NACL SYG 1 MG/10 ML SYRINGE ONE (07:54)
[2018-04-18] MEDS ORDERED: ROCURONIUM BROMIDE 10 MG/ML 10 ML VIAL IV ONE (07:54)
[2018-04-18] MEDS ORDERED: GLYCOPYRROLATE 0.2 MG/ML 2 ML VIAL ONE (07:54)
--- NOTE | 2018-04-18 08:12 | P.GSHP ---
History of Present Illness H&P Date: 04/18/18 Chief Complaint: Morbid obesity This is a 52-year-old female who presents today for laparoscopic sleeve gastrectomy. Patient has had lifetime problems obesity. Her BMI is 42. Patient is aware the risks of surgery including conversion to the open procedure and injury to the stomach, liver and spleen. She is also aware the risk of gastric staple line disruption, bleeding or perforation. Past Medical History Past Medical History: Asthma, Diabetes Mellitus, Eye Disorder, Fibromyalgia, GERD/Reflux, Hyperlipidemia, Hypertension Additional Past Medical History / Comment(s): Mild intermittent bronchial asthma , obesity, VSD, cardiomyopathy, pacer/AICD in place, diabetes mellitus, diabetic retinopathy, diabetic gastroparesis, diabetic peripheral neuropathy, history of genital herpes, RLS, chronic back pain with degenerative disc disease involving L5 and S1 in addition to cervical disc disease involving C4 and C5, difficulty with mobility and the patient uses a walker/motorized scooter for longer distances. Hyperlipidemia, hypertension, fibromyalgia, acid reflux History of Any Multi-Drug Resistant Organisms: None Reported Past Surgical History: AICD, Appendectomy, Heart Catheterization, Orthopedic Surgery, Pacemaker, Tonsillectomy Additional Past Surgical History / Comment(s): Sinus surgery with correction of a deviated nasal septum, pacer/AICD placement, bilateral eye surgery with vitrectomy, treatment of a wound in the left foot and diabetic foot ulcer, history of I&D of an axillary staphylococcal infection, PICC line insertion and removal, shoulder surgery for a frozen shoulder, colonoscopy, VSD repair at age of 3 Past Anesthesia/Blood Transfusion Reactions: Previous Problems w/ Anesthesia Additional Past Anesthesia/Blood Transfusion Reaction / Comment(s): pt states she wakes up "slow and emotional-CRIES". Type of Cardiac Device: Permanent Pacemaker, AICD Device Placement Date:: 08/04/2016 [employer]. Smoking Status: Never smoker - Past Family History Mother Family Medical History: Cancer, COPD Additional Family Medical History / Comment(s): lung cancer at age 73 Father Family Medical History: AICD/Pacemaker, Coronary Artery Disease (CAD), Diabetes Mellitus, Hypertension, Myocardial Infarction ([place]) Additional Family Medical History / Comment(s): [place] @ AGE 43 @ AGE 62 Brother(s) Family Medical History: Myocardial Infarction ([place]) Additional Family Medical History / Comment(s): HX [place] X 3 -1ST ONE @ AGE 39 Medications and Allergies Home Medications Medication Instructions Recorded Confirmed Type Atorvastatin [Lipitor] 20 mg PO HS 09/25/13 04/18/18 History DULoxetine HCL [Cymbalta] 60 mg PO BID 12/03/14 04/18/18 History Metoprolol Tartrate [Lopressor] 100 mg PO HS 12/03/14 04/18/18 History Omeprazole [PriLOSEC] 20 mg PO AC-BRKFST 12/03/14 04/04/18 History Dulaglutide [Trulicity] 1.5 mg SQ FR 09/10/15 04/18/18 History rOPINIRole HCL [Requip] 2 mg PO HS 11/28/15 04/18/18 History Gabapentin 800 mg PO QID 11/29/15 04/18/18 History Metoprolol Tartrate [Lopressor] 50 mg PO QAM 11/29/15 04/04/18 History Spironolactone [Aldactone] 25 mg PO DAILY 04/04/16 04/18/18 History valACYclovir [Valtrex] 500 mg PO Q48H 04/04/16 04/18/18 History Insulin Aspart [NovoLOG Flexpen] See Protocol SQ TID 07/06/16 04/04/18 History Insulin Glargine,Hum.rec.anlog 42 unit SQ BID 07/06/16 04/18/18 History [Basaglar Kwikpen U-100] Aspirin 325 mg PO DAILY 11/30/16 04/18/18 History Canagliflozin [Invokana] 300 mg PO DAILY 11/16/17 04/18/18 History Levothyroxine Sodium [Synthroid] 25 mcg PO DAILY 11/16/17 04/18/18 History metFORMIN HCL 1,000 mg PO BID 11/16/17 04/18/18 History ALPRAZolam [Xanax] 0.25 mg PO Q8HR PRN 04/04/18 04/04/18 History Amitriptyline HCl [Elavil] 40 mg PO HS 04/04/18 04/18/18 History Calcium Phos/Vit D3/Mag Oxide 1 each PO DAILY 04/04/18 04/04/18 History [Posture-D Caplet] Ferrous Sulfate, Dried [Iron] 159 mg PO DAILY 04/04/18 04/18/18 History Furosemide [Lasix] 40 mg PO DAILY PRN 04/04/18 04/18/18 History Ipratropium-Albuterol Nebulize 3 ml INHALATION RT-QID PRN 04/04/18 04/18/18 History [Duoneb 0.5 mg-3 mg/3 ml Soln] Multivitamins, Thera [Multivitamin 1 tab PO DAILY 04/04/18 04/18/18 History (formulary)] Nascobal 500 mcg NASAL FR 04/04/18 History Ramipril [Altace] 5 mg PO DAILY 04/04/18 04/04/18 History Allergies Allergy/AdvReac Type Severity Reaction Status Date / Time ibuprofen [From Motrin] Allergy WEAK HEART Verified 04/18/18 06:59 MUSCLE Iodine and Iodide Containing Allergy Rash/Hives Verified 04/18/18 06:59 Produc meperidine HCl [From Demerol] AdvReac Unknown Vomiting Verified 04/18/18 06:59 Surgical - Exam Vital Signs Temp Pulse Resp BP Pulse Ox 97.4 F L 74 16 104/56 96 04/18/18 06:56 04/18/18 06:56 04/18/18 06:56 04/18/18 06:56 04/18/18 06:56 BMI 42 - General well developed, well nourished, no distress - Eyes PERRL - ENT normal pinna - Neck no masses - Respiratory normal expansion - Cardiovascular Rhythm: regular - Abdomen Abdomen: soft, non tender Results - Labs 04/18/18 06:53 Abnormal Lab Results - Last 24 Hours (Table) 04/18/18 04/18/18 Range/Units 06:39 07:09 POC Glucose (mg/dL) 61 L 135 H (75-99) mg/dL Diabetes panel 04/18/18 Range/Units 06:53 Potassium 5.1 (3.5-5.1) mmol/L Pituitary panel 04/18/18 Range/Units 06:53 Potassium 5.1 (3.5-5.1) mmol/L Adrenal panel 04/18/18 Range/Units 06:53 Potassium 5.1 (3.5-5.1) mmol/L Assessment and Plan Assessment: BMI 42 Morbid obesity We'll perform sleeve gastrectomy.
[2018-04-18] MEDS ORDERED: BUPIVACAINE-EPI 0.5%-1:200,000 10 ML VIAL SQ ONE (08:35)
[2018-04-18] MEDS ORDERED: LACTATED RINGERS 1,000 ML IV ONE (08:36)
--- NOTE | 2018-04-18 09:21 | P.OP ---
Date of Procedure: 04/18/18 Preoperative Diagnosis: Morbid obesity BMI 41 Postoperative Diagnosis: Morbid obesity BMI 41 Procedure(s) Performed: Laparoscopic sleeve gastrectomy Anesthesia: NOMI Surgeon: Castillo Holley Estimated Blood Loss (ml): 5 Pathology: other (Stomach) Condition: stable Disposition: PACU Description of Procedure: MThe patient was placed on the operating room table in the supine position. She received general anesthesia and then was placed in dorsal lithotomy position. Her abdomen was prepped and draped in sterile fashion. The skin incision sites were anesthetized 1% local Xylocaine. And then the skin was incised with an 11 blade in the left lateral position. Using a blade less trocar under direct visualization the peritoneal cavity was entered. The abdomen was insufflated and then a 5 mm laparoscope was placed into the peritoneal cavity. A 5 mm trocar was placed in the right epigastric, and right lateral position. A 15 mm trocar was placed in the supra-umbilical position and another 5 mm trocar was placed in the left lateral position. The left lateral lobe of the liver was retracted. The stomach was visualized. The greater curvature of the stomach was then dissected using the Harmonic scissors. The dissection occurred approximately 5 cm from the pylorus to the level of the left darryl. There was no hiatal hernia seen. At this point a 40- Afghan bougie dilator was placed the oropharynx and passed into the esophagus and into the stomach by the PASSENGER ATTENDANT. The sleeve gastrectomy was performed by using the powered echelon stapler with a seam guard buttress material. Sequential firings of the stapler were performed. The gastric remnant was then brought out through the 15 mm trocar site. The dilator was withdrawn. And a orogastric tube was replaced into the stomach. The stomach was insufflated with 200 mL of methylene blue normal saline. There was no evidence of extravasation. The abdomen was irrigated there is no bleeding seen. The Gamal -Makayla device was used to close the 15 mm trocar with 0 Vicryl. Skin was closed with interrupted 3-0 Monocryl sutures once the trochars withdrawn. Dermabond dressing was applied. Patient was sent to recovery in stable condition.
[2018-04-18] MEDS ORDERED: HYDROmorphone 1 MG/ML 1 ML SYRINGE IVP PRN (09:22)
[2018-04-18] MEDS ORDERED: HYDROcodone/APAP 15 ML SOLUTION PO PRN (09:22)
[2018-04-18] MEDS ORDERED: NALOXONE 0.4 MG/ML 1 ML VIAL IV PRN (09:22)
[2018-04-18] MEDS ORDERED: diphenhydrAMINE 50 MG/ML 1 ML VIAL IVP PRN (09:22)
[2018-04-18 09:34] LABS: Glucose,Whole Blood 112 mg/dL (75-99)
[2018-04-18] MEDS: ONDANSETRON 4 MG/2 ML VIAL IVP PRN (09:50)
[2018-04-18] MEDS ORDERED: IPRATROPIUM-ALBUTEROL 3 ML NEB INHALATION PRN (10:35)
[2018-04-18] MEDS ORDERED: ALPRAZolam 0.25 MG TAB PO PRN (10:35)
[2018-04-18] MEDS: SIMETHICONE 40 MG/0.6 ML DROPS 2,000 MG/30 ML BOTTLE PO PRN (11:20)
[2018-04-18] MEDS: HYOSCYAMINE ORAL DROPS 1.875 MG/15 ML BOTTLE PO PRN (11:20)
[2018-04-18] MEDS: AMPICILLIN-SULBACTAM 3 GM in SODIUM CHLORIDE 0.9% 100 ML IVPB SCH ×2 (11:22→17:30)
[2018-04-18 11:33] LABS: Glucose,Whole Blood 158 mg/dL (75-99)
[2018-04-18] MEDS: METOCLOPRAMIDE 5 MG/ML 2 ML VIAL IVP PRN (11:36)
[2018-04-18] MEDS: INSULIN ASPART (NovoLOG) 100 UNIT/ML VIAL SQ SCH ×3 (12:54→21:40)
[2018-04-18] MEDS: ALBUTEROL NEBULIZED 2.5 MG/3 ML INHALATION SCH ×3 (13:09→20:58)
--- NOTE | 2018-04-18 13:35 | P.CONS ---
History of Present Illness - Reason for Consult Consult date: 04/18/18 Medical management - History of Present Illness This is a 52-year-old female patient of Dr. Anjel Vann with past medical history of diabetes mellitus type 2 with diabetic neuropathy and retinopathy, hypertension, hyperlipidemia, mild intermittent asthma, conngenital heart disease with VSD requiring repair at age 3 with subsequent development of nonischemic cardiomyopathy status post AICD, mild intermittent asthma, restless leg syndrome, fibromyalgia, gastric reflux disease, generalized anxiety disorder and recurrent depression, chronic wound to the right great toe. Patient has been brought into the hospital on the care of Dr. Holley status post laparoscopic sleeve gastrectomy. Patient is seen in the postop period. Her pain is currently controlled, blood sugars have been stable , blood pressure is 116/59, she has been afebrile, pulse ox currently 96% on 2 L. Patient states that she lost 12 pounds on her own prior to surgery. Her last hemoglobin A1c was 7.5 and she follows with Dr. Annette Parry. Review of Systems All systems: negative Constitutional: Reports weight loss, Denies chills, Denies fatigue, Denies fever , Denies lethargy, Denies malaise, Denies poor appetite, Denies sweats, Denies weakness Eyes: denies blurred vision, denies pain Ears, nose, mouth and throat: Denies dysphagia, Denies headache, Denies sore throat, Denies vertigo Cardiovascular: Denies chest pain, Denies dyspnea on exertion, Denies edema, Denies irregular heart beat, Denies leg edema, Denies lightheadedness, Denies shortness of breath, Denies syncope Respiratory: Denies cough, Denies cough with sputum, Denies dyspnea, Denies excessive sputum, Denies hemoptysis Gastrointestinal: Denies abdominal pain, Denies diarrhea, Denies loss of appetite, Denies melena, Denies nausea, Denies vomiting Genitourinary: Denies dysuria, Denies hematuria, Denies urgency, Denies urinary frequency Musculoskeletal: Denies frequent falls, Denies gait dysfunction, Denies myalgias Integumentary: Reports wounds, Denies pruritus, Denies rash Neurological: Denies aphasia, Denies change in mentation, Denies change in speech, Denies gait dysfunction, Denies head injury, Denies numbness, Denies seizures, Denies vertigo, Denies weakness Psychiatric: Denies anxiety, Denies depression Endocrine: Denies fatigue, Denies weight change Past Medical History Past Medical History: Asthma, Diabetes Mellitus, Eye Disorder, Fibromyalgia, GERD/Reflux, Hyperlipidemia, Hypertension Additional Past Medical History / Comment(s): Mild intermittent bronchial asthma , obesity, VSD, cardiomyopathy, pacer/AICD in place, diabetes mellitus, diabetic retinopathy, diabetic gastroparesis, diabetic peripheral neuropathy, history of genital herpes, RLS, chronic back pain with degenerative disc disease involving L5 and S1 in addition to cervical disc disease involving C4 and C5, difficulty with mobility and the patient uses a walker/motorized scooter for longer distances. Hyperlipidemia, hypertension, fibromyalgia, acid reflux History of Any Multi-Drug Resistant Organisms: None Reported Past Surgical History: AICD, Appendectomy, Heart Catheterization, Orthopedic Surgery, Pacemaker, Tonsillectomy Additional Past Surgical History / Comment(s): Sinus surgery with correction of a deviated nasal septum, pacer/AICD placement, bilateral eye surgery with vitrectomy, treatment of a wound in the left foot and diabetic foot ulcer, history of I&D of an axillary staphylococcal infection, PICC line insertion and removal, shoulder surgery for a frozen shoulder, colonoscopy, VSD repair at age of 3 Past Anesthesia/Blood Transfusion Reactions: Previous Problems w/ Anesthesia Additional Past Anesthesia/Blood Transfusion Reaction / Comm: pt states she wakes up "slow and emotional-CRIES". Type of Cardiac Device: Permanent Pacemaker, AICD Device Placement Date:: 08/04/2016 [employer]. Smoking Status: Never smoker Additional Past Alcohol Use History / Comment(s): Patient is a lifelong nonsmoker. She denies any illicit drug use, alcohol abuse. - Past Family History Mother Family Medical History: Cancer, COPD Additional Family Medical History / Comment(s): lung cancer at age 73 Father Family Medical History: AICD/Pacemaker, Coronary Artery Disease (CAD), Diabetes Mellitus, Hypertension, Myocardial Infarction ([place]) Additional Family Medical History / Comment(s): [place] @ AGE 43 @ AGE 62 Brother(s) Family Medical History: Myocardial Infarction ([place]) Additional Family Medical History / Comment(s): HX [place] X 3 -1ST ONE @ AGE 39 Medications and Allergies Home Medications Medication Instructions Recorded Confirmed Type Atorvastatin [Lipitor] 20 mg PO HS 09/25/13 04/18/18 History DULoxetine HCL [Cymbalta] 60 mg PO BID 12/03/14 04/18/18 History Metoprolol Tartrate [Lopressor] 100 mg PO HS 12/03/14 04/18/18 History Omeprazole [PriLOSEC] 20 mg PO AC-BRKFST 12/03/14 04/18/18 History Dulaglutide [Trulicity] 1.5 mg SQ FR 09/10/15 04/18/18 History rOPINIRole HCL [Requip] 2 mg PO HS 11/28/15 04/18/18 History Spironolactone [Aldactone] 25 mg PO DAILY 04/04/16 04/18/18 History valACYclovir [Valtrex] 500 mg PO Q48H 04/04/16 04/18/18 History Insulin Aspart [NovoLOG Flexpen] See Protocol SQ TID 07/06/16 04/18/18 History Insulin Glargine,Hum.rec.anlog 42 unit SQ BID 07/06/16 04/18/18 History [Basaglar Kwikpen U-100] Aspirin 325 mg PO DAILY 11/30/16 04/18/18 History Canagliflozin [Invokana] 300 mg PO DAILY 11/16/17 04/18/18 History Levothyroxine Sodium [Synthroid] 25 mcg PO DAILY 11/16/17 04/18/18 History metFORMIN HCL 1,000 mg PO BID 11/16/17 04/18/18 History ALPRAZolam [Xanax] 0.25 mg PO Q8HR PRN 04/04/18 04/18/18 History Amitriptyline HCl [Elavil] 40 mg PO HS 04/04/18 04/18/18 History Calcium Phos/Vit D3/Mag Oxide 1 each PO DAILY 04/04/18 04/18/18 History [Posture-D Caplet] Ferrous Sulfate, Dried [Iron] 159 mg PO DAILY 04/04/18 04/18/18 History Furosemide [Lasix] 40 mg PO DAILY PRN 04/04/18 04/18/18 History Ipratropium-Albuterol Nebulize 3 ml INHALATION RT-QID PRN 04/04/18 04/18/18 History [Duoneb 0.5 mg-3 mg/3 ml Soln] Multivitamins, Thera [Multivitamin 1 tab PO DAILY 04/04/18 04/18/18 History (formulary)] Nascobal 500 mcg NASAL FR 04/04/18 04/18/18 History Ramipril [Altace] 5 mg PO DAILY 04/04/18 04/18/18 History Gabapentin 800 mg PO QID 04/18/18 04/18/18 History Metoprolol Tartrate [Lopressor] 50 mg PO DAILY 04/18/18 04/18/18 History Allergies Allergy/AdvReac Type Severity Reaction Status Date / Time ibuprofen [From Motrin] Allergy WEAK HEART Verified 04/18/18 10:40 MUSCLE Iodine and Iodide Containing Allergy Rash/Hives Verified 04/18/18 10:40 Produc meperidine HCl [From Demerol] AdvReac Unknown Vomiting Verified 04/18/18 10:40 Physical Exam Vitals: Vital Signs Temp Pulse Pulse Resp BP BP Pulse Ox 04/18/18 10:09 72 16 116/59 96 04/18/18 09:54 71 16 118/60 100 04/18/18 09:39 69 16 114/59 100 04/18/18 09:24 97 F L 69 16 100/55 99 04/18/18 09:23 98.4 F 73 17 127/80 100 04/18/18 06:56 97.4 F L 74 16 104/56 96 Intake and Output 04/17/18 04/18/18 04/18/18 22:59 06:59 14:59 Intake Total 1800 Output Total 10 Balance 1790 Intake: IV 1800 Output: Estimated Blood Loss 10 Gen: This is a morbidly obese 52-year-old female. She is resting in bed appears to be comfortable at this time. HEENT: Head is atraumatic, normocephalic. Pupils equal, round. Sclerae is anicteric. Oral mucous membranes are dry. NECK: Supple. No JVD. No lymphadenopathy. No thyromegaly. LUNGS: Clear to auscultation. No wheezes or rhonchi. No intercostal retractions. HEART: Regular rate and rhythm. Systolic murmur. AICD in place. ABDOMEN: Soft. Bowel sounds are present. No masses. No tenderness. EXTREMITIES: No pedal edema. No calf tenderness. Diabetic ulcer to the plantar surface of the right great toe, no drainage, no foul order. NEUROLOGICAL: Patient is awake, alert and oriented x3. Cranial nerves 2 through 12 are grossly intact. Results CBC & Chem 7: 04/18/18 06:53 Labs: Abnormal Lab Results - Last 24 Hours (Table) 04/18/18 04/18/18 04/18/18 Range/Units 06:39 07:09 09:32 POC Glucose (mg/dL) 61 L 135 H 112 H (75-99) mg/dL 04/18/18 Range/Units 11:31 POC Glucose (mg/dL) 158 H (75-99) mg/dL Assessment and Plan Assessment: 1. Morbid obesity status post gastric sleeve procedure. Incentive spirometry and KATHARINE hose to be added. Pain management and diet per general surgeon. 2. History of congenital cardiomyopathy post AICD. Continue metoprolol 50 mg the morning and 100 mg at bedtime, Lasix and Aldactone on hold. 3. Diabetes mellitus type 2. Patient will be resumed on her lower dose of long acting with Levemir 15 units twice daily and NovoLog scale before meals and at bedtime. Scheduled NovoLog on hold. 4. Diabetic polyneuropathy. Continue gabapentin 800 mg 4 times daily, Cymbalta 60 mg orally twice every day, amitriptyline 40 mg at bedtime. 5. Restless leg syndrome. Continue patient on ropinirole 1 mg in the morning and 2 mg at bedtime. 6. Hyperlipidemia. Continue patient on Lipitor 20 mg orally once every day. 7. Vitamin D deficiency. Continue vitamin D 5000 units twice a day. 8. Obesity with possible obstructive sleep apnea. 9. Hypertension and hypertensive cardiovascular disease. Continue metoprolol 50 mg in the morning and 100 mg at bedtime. Efraín inhibitor on hold until tomorrow. Lasix and Aldactone on hold. 10. Mild intermittent asthma history. 11. Patient is a full code. Discharge plan: Return home Impression and plan of care have been directed as dictated by the signing physician. Radha Almeida nurse practitioner acting as scribe for signing physician.
--- NOTE | 2018-04-18 16:38 | FL ---
EXAMINATION TYPE: FL UGI DATE OF EXAM: 04/18/2018 COMPARISON: None HISTORY: Post bariatric surgery gastric sleeve TECHNIQUE: A single contrast UGI study is performed. 2 ounces of Isovue was utilized. 16 images are obtained. Fluoroscopy time 1.16 minutes FINDINGS: Contrast passes from the distal esophagus through the gastric sleeve with moderate to sever e hesitancy. No extravasation of contrast is evident. No complete obstruction is evident. Moderate free air is present under the diaphragm. Overhead radiographs were obtained. IMPRESSIONS: 1. Moderate to severe hesitancy of contrast passing through the postsurgical gastric sleeve. 2. Moderate free air under the diaphragms.
[2018-04-18] MEDS: GABAPENTIN 400 MG CAP PO SCH ×3 (17:29→20:47)
[2018-04-18] MEDS: 0.9% NACL WITH KCL 20 MEQ/L 1,000 ML IV SCH ×2 (17:32→21:38)
[2018-04-18 17:50] LABS: Glucose,Whole Blood 120 mg/dL (75-99)
[2018-04-18 20:27] LABS: Glucose,Whole Blood 107 mg/dL (75-99)
[2018-04-18] MEDS: AMITRIPTYLINE HCL 10 MG TAB PO SCH (20:48)
[2018-04-18] MEDS: ATORVASTATIN 20 MG TAB PO SCH (20:48)
[2018-04-18] MEDS: METOPROLOL TARTRATE 50 MG TAB PO SCH (20:48)
[2018-04-18] MEDS: DULoxetine HCL 60 MG CAPSULE.DR PO SCH (20:48)
[2018-04-18] MEDS: ENOXAPARIN 40 MG/0.4 ML SYRINGE SQ SCH (21:39)
[2018-04-18] MEDS: INSULIN DETEMIR (LEVEMIR) 100 UNIT/ML SYR SQ SCH (21:40)
[2018-04-19] MEDS: ONDANSETRON 4 MG/2 ML VIAL IVP PRN ×2 (00:21→12:39)
[2018-04-19] MEDS: SIMETHICONE 40 MG/0.6 ML DROPS 2,000 MG/30 ML BOTTLE PO PRN ×3 (00:21→17:44)
[2018-04-19] MEDS: 0.9% NACL WITH KCL 20 MEQ/L 1,000 ML IV SCH ×2 (00:21→05:42)
[2018-04-19] MEDS: METOCLOPRAMIDE 5 MG/ML 2 ML VIAL IVP PRN ×2 (00:21→17:44)
[2018-04-19] MEDS: HYOSCYAMINE ORAL DROPS 1.875 MG/15 ML BOTTLE PO PRN ×3 (00:21→17:43)
[2018-04-19] MEDS: LEVOTHYROXINE 25 MCG TAB PO SCH (05:23)
[2018-04-19] MEDS: LACTATED RINGERS 1,000 ML IV SCH (05:42)
[2018-04-19 07:30] LABS: Glucose,Whole Blood 90 mg/dL (75-99)
[2018-04-19] MEDS: INSULIN ASPART (NovoLOG) 100 UNIT/ML VIAL SQ SCH ×4 (07:35→21:01)
[2018-04-19] MEDS: DULoxetine HCL 60 MG CAPSULE.DR PO SCH ×2 (07:57→21:01)
[2018-04-19] MEDS: METOPROLOL TARTRATE 50 MG TAB PO SCH ×2 (07:57→21:05)
[2018-04-19] MEDS: GABAPENTIN 400 MG CAP PO SCH ×4 (07:57→21:03)
[2018-04-19] MEDS: ENOXAPARIN 40 MG/0.4 ML SYRINGE SQ SCH ×2 (07:57→21:04)
[2018-04-19] MEDS: PANTOPRAZOLE 40 MG/10 ML VIAL IV SCH (07:57)
[2018-04-19] MEDS: ALBUTEROL NEBULIZED 2.5 MG/3 ML INHALATION SCH ×4 (07:58→20:12)
[2018-04-19 08:00] LABS: Anisocytosis Slight; Basophils # (A) 0.1 k/uL (0-0.2); Basophils % (A) 0 %; Eosinophils % (A) 0 %; HCT 39.7 % (34.0-46.0); HGB 12.5 gm/dL (11.4-16.0); Lymphocytes # (A) 2.5 k/uL (1.0-4.8); Lymphocytes % (A) 19 %; MCH 28.7 pg (25.0-35.0); MCHC 31.4 g/dL (31.0-37.0); MCV 91.5 fL (80.0-100.0); Mean Platelet Volume 6.9; Monocytes # (A) 0.7 k/uL (0-1.0); Monocytes % (A) 5 %; Neutrophils % (A) 74 %; Platelet Count 236 k/uL (150-450); RBC 4.34 m/uL (3.80-5.40); RDW 16.3 % (11.5-15.5); WBC 13.5 k/uL (3.8-10.6)
[2018-04-19] MEDS ORDERED: 1: MVI, ADULT NO.4 WITH VIT K 10 ML, THIAMINE 100 MG, FOLIC ACID 1 MG, POTASSIUM CHLORID IV SCH ×6 (08:00)
[2018-04-19 08:08] LABS: Anion Gap 11 mmol/L; Blood Urea Nitrogen 33 mg/dL (7-17); Calcium 8.9 mg/dL (8.4-10.2); Carbon Dioxide 22 mmol/L (22-30); Chloride 107 mmol/L (98-107); Magnesium 1.7 mg/dL (1.6-2.3); Phosphorus 3.6 mg/dL (2.5-4.5); Sodium 140 mmol/L (137-145)
[2018-04-19 08:41] LABS: Potassium 6.6 mmol/L (3.5-5.1)
[2018-04-19] MEDS: ASPIRIN 325 MG TAB PO SCH (10:06)
[2018-04-19] MEDS: INSULIN DETEMIR (LEVEMIR) 100 UNIT/ML SYR SQ SCH ×2 (10:08→21:05)
[2018-04-19] MEDS ORDERED: SODIUM POLYSTYRENE SULFONATE 15 GM/60 ML BOTTLE PO ONE (10:52)
[2018-04-19 12:39] LABS: Glucose,Whole Blood 130 mg/dL (75-99)
--- NOTE | 2018-04-19 13:16 | P.PN ---
Subjective Progress Note Date: 04/19/18 This is a 52-year-old female patient of Dr. Anjel Vann with past medical history of diabetes mellitus type 2 with diabetic neuropathy and retinopathy, hypertension, hyperlipidemia, mild intermittent asthma, conngenital heart disease with VSD requiring repair at age 3 with subsequent development of nonischemic cardiomyopathy status post AICD, mild intermittent asthma, restless leg syndrome, fibromyalgia, gastric reflux disease, generalized anxiety disorder and recurrent depression, chronic wound to the right great toe. Patient has been brought into the hospital on the care of Dr. Holley status post laparoscopic sleeve gastrectomy. Patient is seen in the postop period. Her pain is currently controlled, blood sugars have been stable , blood pressure is 116/59, she has been afebrile, pulse ox currently 96% on 2 L. Patient states that she lost 12 pounds on her own prior to surgery. Her last hemoglobin A1c was 7.5 and she follows with Dr. Annette Parry. 04/19: The patient is found sitting up in a recliner. She states she had some vomiting and dry heaves last evening which has resolved. Potassium came back high at 6.2 and one dose of Kayexalate ordered. Repeat potassium level at 5 PM. Upper GI series showed moderate to severe hesitancy with contrast passing through the postsurgical gastric sleeve. Moderate free air under the diaphragm. White count is 13.5, hemoglobin 12.5, creatinine 0.86 in BUN 33. Blood sugar running between 90 and 120. He has been afebrile, heart rate in the 90s, blood pressure 113/72, pulse ox 97% on room air. Review of Systems Constitutional: Reports weight loss, Denies chills, Denies fatigue, Denies fever , Denies lethargy, Denies malaise, Denies poor appetite, Denies sweats, Denies weakness Eyes: denies blurred vision, denies pain Ears, nose, mouth and throat: Denies dysphagia, Denies headache, Denies sore throat, Denies vertigo Cardiovascular: Denies chest pain, Denies dyspnea on exertion, Denies edema, Denies irregular heart beat, Denies leg edema, Denies lightheadedness, Denies shortness of breath, Denies syncope Respiratory: Denies cough, Denies cough with sputum, Denies dyspnea, Denies excessive sputum, Denies hemoptysis Gastrointestinal: Reports abdominal pain, Denies diarrhea, Denies loss of appetite, Denies melena, Denies nausea, Denies vomiting Genitourinary: Denies dysuria, Denies hematuria, Denies urgency, Denies urinary frequency Musculoskeletal: Denies frequent falls, Denies gait dysfunction, Denies myalgias Integumentary: Reports wounds, Denies pruritus, Denies rash Neurological: Denies aphasia, Denies change in mentation, Denies change in speech, Denies gait dysfunction, Denies head injury, Denies numbness, Denies seizures, Denies vertigo, Denies weakness Psychiatric: Denies anxiety, Denies depression Endocrine: Denies fatigue, Denies weight change Objective - Vital Signs Vital signs: Vital Signs Temp 98.0 F 04/19/18 07:52 Pulse 90 04/19/18 07:52 Resp 16 04/19/18 07:52 BP 113/72 04/19/18 07:52 Pulse Ox 97 04/19/18 07:52 Intake & Output 04/18/18 04/19/18 04/19/18 18:59 06:59 18:59 Intake Total 1800 Output Total 10 Balance 1790 Intake: IV 1800 Output: Estimated Blood Loss 10 Other: Voiding Method Toilet - Exam Gen: This is a morbidly obese 52-year-old female. She is resting in bed appears to be comfortable at this time. HEENT: Head is atraumatic, normocephalic. Pupils equal, round. Sclerae is anicteric. Oral mucous membranes are dry. NECK: Supple. No JVD. No lymphadenopathy. No thyromegaly. LUNGS: Clear to auscultation. No wheezes or rhonchi. No intercostal retractions. HEART: Regular rate and rhythm. Systolic murmur. AICD in place. ABDOMEN: Soft. Bowel sounds are present. No masses. No tenderness. Surgical wound sites show no signs of infection. Edges are well approximated. No significant drainage. EXTREMITIES: No pedal edema. No calf tenderness. Diabetic ulcer to the plantar surface of the right great toe, no drainage, no foul order. NEUROLOGICAL: Patient is awake, alert and oriented x3. Cranial nerves 2 through 12 are grossly intact. - Labs CBC & Chem 7: 04/19/18 07:18 04/19/18 09:43 Labs: Abnormal Lab Results - Last 24 Hours (Table) 04/18/18 04/18/18 04/18/18 Range/Units 11:31 17:38 20:16 WBC (3.8-10.6) k/uL RDW (11.5-15.5) % Neutrophils # (1.3-7.7) k/uL Potassium (3.5-5.1) mmol/L BUN (7-17) mg/dL POC Glucose (mg/dL) 158 H 120 H 107 H (75-99) mg/dL 04/19/18 04/19/18 04/19/18 Range/Units 07:18 07:18 09:43 WBC 13.5 H (3.8-10.6) k/uL RDW 16.3 H (11.5-15.5) % Neutrophils # 10.0 H (1.3-7.7) k/uL Potassium 6.6 H* 6.2 H* (3.5-5.1) mmol/L BUN 33 H (7-17) mg/dL POC Glucose (mg/dL) (75-99) mg/dL Assessment and Plan Assessment: 1. Morbid obesity status post gastric sleeve procedure. Incentive spirometry and KATHARINE hose to be added. Pain management and diet per general surgeon. 2. History of congenital cardiomyopathy post AICD. Continue metoprolol 50 mg the morning and 100 mg at bedtime, Lasix and Aldactone on hold. 3. Diabetes mellitus type 2. Patient will be resumed on her lower dose of long acting with Levemir 15 units twice daily and NovoLog scale before meals and at bedtime. Scheduled NovoLog on hold. 4. Diabetic polyneuropathy. Continue gabapentin 800 mg 4 times daily, Cymbalta 60 mg orally twice every day, amitriptyline 40 mg at bedtime. 5. Restless leg syndrome. Continue patient on ropinirole 1 mg in the morning and 2 mg at bedtime. 6. Hyperlipidemia. Continue patient on Lipitor 20 mg orally once every day. 7. Vitamin D deficiency. Continue vitamin D 5000 units twice a day. 8. Obesity with possible obstructive sleep apnea. 9. Hypertension and hypertensive cardiovascular disease. Continue metoprolol 50 mg in the morning and 100 mg at bedtime. Efraín inhibitor on hold until tomorrow. Lasix and Aldactone on hold. 10. Mild intermittent asthma history. 11. Patient is a full code. Discharge plan: Return home Impression and plan of care have been directed as dictated by the signing physician. Radha Almeida nurse practitioner acting as scribe for signing physician. Plan: 1. Morbid obesity status post gastric sleeve procedure. Incentive spirometry and KATHARINE hose to be added. Pain management and diet per general surgeon. Upper GI as above 2. History of congenital cardiomyopathy post AICD. Continue metoprolol 50 mg the morning and 100 mg at bedtime, Lasix and Aldactone on hold. 3. Diabetes mellitus type 2. Patient will be resumed on her lower dose of long acting with Levemir 15 units twice daily and NovoLog scale before meals and at bedtime. Scheduled NovoLog on hold. 4. Diabetic polyneuropathy. Continue gabapentin 800 mg 4 times daily, Cymbalta 60 mg orally twice every day, amitriptyline 40 mg at bedtime. 5. Restless leg syndrome. Continue patient on ropinirole 1 mg in the morning and 2 mg at bedtime. 6. Hyperlipidemia. Continue patient on Lipitor 20 mg orally once every day. 7. Vitamin D deficiency. Continue vitamin D 5000 units twice a day. 8. Obesity with possible obstructive sleep apnea. 9. Hypertension and hypertensive cardiovascular disease. Continue metoprolol 50 mg in the morning and 100 mg at bedtime. Efraín inhibitor will be resumed in the morning with parameters. Lasix and Aldactone on hold. 10. Mild intermittent asthma history. 11. Hyperkalemia. Patient will be given 1 dose of Kayexalate today. Recheck potassium level at 5 PM. Patient is a full code. Discharge plan: Return home Impression and plan of care have been directed as dictated by the signing physician. Radha Almeida nurse practitioner acting as scribe for signing physician.
[2018-04-19 14:08] VITALS: BMI 41.3
[2018-04-19 17:12] LABS: Glucose,Whole Blood 136 mg/dL (75-99)
[2018-04-19 18:57] LABS: Hemoglobin A1C 7.2 % (4.0-6.0)
[2018-04-19 20:24] LABS: Glucose,Whole Blood 128 mg/dL (75-99)
[2018-04-19] MEDS: AMITRIPTYLINE HCL 10 MG TAB PO SCH (21:04)
[2018-04-19] MEDS: ATORVASTATIN 20 MG TAB PO SCH (21:05)
--- NOTE | 2018-04-19 22:38 | P.PN ---
Subjective Progress Note Date: 04/19/18 Principal diagnosis: Morbid obesity Patient doing fairly well today. Still having some dysphagia issues. Not tolerating a large volume of liquids. Less than 10 ounces today. No pain. Objective - Vital Signs Vital signs: Vital Signs Temp 98.0 F 04/19/18 19:22 Pulse 90 04/19/18 19:22 Resp 16 04/19/18 21:27 BP 128/73 04/19/18 19:22 Pulse Ox 98 04/19/18 19:22 Intake & Output 04/19/18 04/19/18 04/20/18 06:59 18:59 06:59 Intake Total 500 Balance 500 Weight 96.162 kg Intake: Oral 500 Other: Voiding Method Toilet Toilet - Exam Abdomen: Soft, nondistended, mild tenderness, incisions clean and dry - Labs CBC & Chem 7: 04/19/18 07:18 04/19/18 17:50 Labs: Abnormal Lab Results - Last 24 Hours (Table) 04/19/18 04/19/18 04/19/18 Range/Units 07:18 07:18 07:18 WBC 13.5 H (3.8-10.6) k/uL RDW 16.3 H (11.5-15.5) % Neutrophils # 10.0 H (1.3-7.7) k/uL Potassium 6.6 H* (3.5-5.1) mmol/L BUN 33 H (7-17) mg/dL POC Glucose (mg/dL) (75-99) mg/dL Hemoglobin A1c 7.2 H (4.0-6.0) % 04/19/18 04/19/18 04/19/18 Range/Units 09:43 12:26 17:00 WBC (3.8-10.6) k/uL RDW (11.5-15.5) % Neutrophils # (1.3-7.7) k/uL Potassium 6.2 H* (3.5-5.1) mmol/L BUN (7-17) mg/dL POC Glucose (mg/dL) 130 H 136 H (75-99) mg/dL Hemoglobin A1c (4.0-6.0) % 04/19/18 04/19/18 Range/Units 17:50 20:13 WBC (3.8-10.6) k/uL RDW (11.5-15.5) % Neutrophils # (1.3-7.7) k/uL Potassium 5.4 H (3.5-5.1) mmol/L BUN (7-17) mg/dL POC Glucose (mg/dL) 128 H (75-99) mg/dL Hemoglobin A1c (4.0-6.0) % Assessment and Plan Assessment: We'll continue increasing liquids at this time. Possible discharge tomorrow if adequate liquid intake noted. Ambulate.
[2018-04-20] MEDS: LEVOTHYROXINE 25 MCG TAB PO SCH (05:28)
[2018-04-20] MEDS: ALBUTEROL NEBULIZED 2.5 MG/3 ML INHALATION SCH ×2 (07:59→11:51)
[2018-04-20] MEDS: INSULIN ASPART (NovoLOG) 100 UNIT/ML VIAL SQ SCH (08:52)
[2018-04-20] MEDS: ASPIRIN 325 MG TAB PO SCH (08:52)
[2018-04-20] MEDS: LACTATED RINGERS 1,000 ML IV SCH (08:52)
[2018-04-20] MEDS: GABAPENTIN 400 MG CAP PO SCH (08:53)
[2018-04-20] MEDS: DULoxetine HCL 60 MG CAPSULE.DR PO SCH (08:53)
[2018-04-20] MEDS ORDERED: LISINOPRIL 20 MG TAB PO SCH (09:00)
[2018-04-20] MEDS: METOPROLOL TARTRATE 50 MG TAB PO SCH (09:01)
[2018-04-20] MEDS: METOCLOPRAMIDE 5 MG/ML 2 ML VIAL IVP PRN (09:01)
[2018-04-20] MEDS: INSULIN DETEMIR (LEVEMIR) 100 UNIT/ML SYR SQ SCH (09:02)
[2018-04-20] MEDS: PANTOPRAZOLE 40 MG/10 ML VIAL IV SCH (09:02)
[2018-04-20] MEDS: ENOXAPARIN 40 MG/0.4 ML SYRINGE SQ SCH (09:02)
[2018-04-20 09:06] LABS: Anion Gap 8 mmol/L; Blood Urea Nitrogen 18 mg/dL (7-17); Calcium 9.1 mg/dL (8.4-10.2); Carbon Dioxide 26 mmol/L (22-30); Chloride 104 mmol/L (98-107); Glucose 156 mg/dL (74-99); Potassium 4.9 mmol/L (3.5-5.1); Sodium 138 mmol/L (137-145)
[2018-04-20 09:30] VITALS: BP 121/75; PULSE 81; RESP 16; TEMP 97.9
--- NOTE | 2018-04-20 11:14 | P.PN ---
Subjective Progress Note Date: 04/20/18 Principal diagnosis: Morbid obesity Patient doing well today. Her liquid intake is much improved. She is quite anxious to go home at this time. Vitals remained stable. Objective - Vital Signs Vital signs: Vital Signs Temp 97.9 F 04/20/18 09:00 Pulse 81 04/20/18 09:00 Resp 16 04/20/18 09:00 BP 121/75 04/20/18 09:00 Pulse Ox 99 04/20/18 09:00 Intake & Output 04/19/18 04/20/18 04/20/18 18:59 06:59 18:59 Intake Total 500 220 Balance 500 220 Weight 96.162 kg Intake: Oral 500 220 Other: Voiding Method Toilet Toilet - Exam Abdomen: Soft, nondistended, mild tenderness - Labs CBC & Chem 7: 04/19/18 07:18 04/20/18 08:13 Labs: Abnormal Lab Results - Last 24 Hours (Table) 04/19/18 04/19/18 04/19/18 Range/Units 07:18 12:26 17:00 Potassium (3.5-5.1) mmol/L BUN (7-17) mg/dL Glucose (74-99) mg/dL POC Glucose (mg/dL) 130 H 136 H (75-99) mg/dL Hemoglobin A1c 7.2 H (4.0-6.0) % 04/19/18 04/19/18 04/20/18 Range/Units 17:50 20:13 08:13 Potassium 5.4 H (3.5-5.1) mmol/L BUN 18 H (7-17) mg/dL Glucose 156 H (74-99) mg/dL POC Glucose (mg/dL) 128 H (75-99) mg/dL Hemoglobin A1c (4.0-6.0) % Assessment and Plan (1) Morbid obesity Narrative/Plan: Continue bariatric liquid diet. May discharged today. Follow-up with Dr. Holley 1 week. Current Visit: Yes Status: Acute Code(s): E66.01 - MORBID (SEVERE) OBESITY DUE TO EXCESS CALORIES SNOMED Code(s): 915582930
[2018-04-20 12:05] LABS: Glucose,Whole Blood 124 mg/dL (75-99)
--- NOTE | 2018-04-20 13:14 | P.PN ---
Subjective Progress Note Date: 04/20/18 This is a 52-year-old female patient of Dr. Anjel Vann with past medical history of diabetes mellitus type 2 with diabetic neuropathy and retinopathy, hypertension, hyperlipidemia, mild intermittent asthma, conngenital heart disease with VSD requiring repair at age 3 with subsequent development of nonischemic cardiomyopathy status post AICD, mild intermittent asthma, restless leg syndrome, fibromyalgia, gastric reflux disease, generalized anxiety disorder and recurrent depression, chronic wound to the right great toe. Patient has been brought into the hospital on the care of Dr. Holley status post laparoscopic sleeve gastrectomy. Patient is seen in the postop period. Her pain is currently controlled, blood sugars have been stable , blood pressure is 116/59, she has been afebrile, pulse ox currently 96% on 2 L. Patient states that she lost 12 pounds on her own prior to surgery. Her last hemoglobin A1c was 7.5 and she follows with Dr. Annette Parry. 04/19: The patient is found sitting up in a recliner. She states she had some vomiting and dry heaves last evening which has resolved. Potassium came back high at 6.2 and one dose of Kayexalate ordered. Repeat potassium level at 5 PM. Upper GI series showed moderate to severe hesitancy with contrast passing through the postsurgical gastric sleeve. Moderate free air under the diaphragm. White count is 13.5, hemoglobin 12.5, creatinine 0.86 in BUN 33. Blood sugar running between 90 and 120. He has been afebrile, heart rate in the 90s, blood pressure 113/72, pulse ox 97% on room air. 04/20: Repeat potassium last evening was 5.4 and this morning 4.9. Blood sugars have been stable. Patient is waiting for general surgeon to discharge her. She is tolerating her diet. Incentive spirometry is at 1000 patient has been instructed to continue this at home. She has been afebrile, heart rate running in the 80s and 90s, blood pressure 125/78 and pulse ox 99% on room air. Patient be discharged today in stable condition with follow-up with Dr. Anjel Vann. Review of Systems Constitutional: Reports weight loss, Denies chills, Denies fatigue, Denies fever , Denies lethargy, Denies malaise, Denies poor appetite Eyes: denies blurred vision, denies pain Ears, nose, mouth and throat: Denies dysphagia, Denies headache, Denies sore throat, Denies vertigo Cardiovascular: Denies chest pain, Denies dyspnea on exertion, Denies edema, Denies irregular heart beat, Denies leg edema, Denies lightheadedness, Denies shortness of breath, Denies syncope Respiratory: Denies cough, Denies cough with sputum, Denies dyspnea, Denies excessive sputum, Denies hemoptysis Gastrointestinal: Reports abdominal pain, Denies diarrhea, Denies loss of appetite, Denies melena, Denies nausea, Denies vomiting Genitourinary: Denies dysuria, Denies hematuria, Denies urgency, Denies urinary frequency Musculoskeletal: Denies frequent falls, Denies gait dysfunction, Denies myalgias Integumentary: Reports wounds, Denies pruritus, Denies rash Neurological: Denies aphasia, Denies change in mentation, Denies change in speech, Denies gait dysfunction, Denies head injury, Denies numbness, Denies seizures, Denies vertigo, Denies weakness Psychiatric: Denies anxiety, Denies depression Endocrine: Denies fatigue, Denies weight change Objective - Vital Signs Vital signs: Vital Signs Temp 97.9 F 04/20/18 09:00 Pulse 81 04/20/18 09:00 Resp 16 04/20/18 09:00 BP 121/75 04/20/18 09:00 Pulse Ox 99 04/20/18 09:00 Intake & Output 04/19/18 04/20/18 04/20/18 18:59 06:59 18:59 Intake Total 500 220 Balance 500 220 Weight 96.162 kg Intake: Oral 500 220 Other: Voiding Method Toilet Toilet - Exam Gen: This is a morbidly obese 52-year-old female. She is resting in chair appears to be comfortable at this time. HEENT: Head is atraumatic, normocephalic. Pupils equal, round. Sclerae is anicteric. Oral mucous membranes are dry. NECK: Supple. No JVD. No lymphadenopathy. No thyromegaly. LUNGS: Clear to auscultation. No wheezes or rhonchi. No intercostal retractions. HEART: Regular rate and rhythm. Systolic murmur. AICD in place. ABDOMEN: Soft. Bowel sounds are present. No masses. No tenderness. Surgical wound sites show no signs of infection. Edges are well approximated. No significant drainage. EXTREMITIES: No pedal edema. No calf tenderness. Diabetic ulcer to the plantar surface of the right great toe, no drainage, no foul order. NEUROLOGICAL: Patient is awake, alert and oriented x3. Cranial nerves 2 through 12 are grossly intact. - Labs CBC & Chem 7: 04/19/18 07:18 04/20/18 08:13 Labs: Abnormal Lab Results - Last 24 Hours (Table) 04/19/18 04/19/18 04/19/18 Range/Units 07:18 17:00 17:50 Potassium 5.4 H (3.5-5.1) mmol/L BUN (7-17) mg/dL Glucose (74-99) mg/dL POC Glucose (mg/dL) 136 H (75-99) mg/dL Hemoglobin A1c 7.2 H (4.0-6.0) % 04/19/18 04/20/18 04/20/18 Range/Units 20:13 07:06 08:13 Potassium (3.5-5.1) mmol/L BUN 18 H (7-17) mg/dL Glucose 156 H (74-99) mg/dL POC Glucose (mg/dL) 128 H 124 H (75-99) mg/dL Hemoglobin A1c (4.0-6.0) % Assessment and Plan Plan: 1. Morbid obesity status post gastric sleeve procedure. Incentive spirometry and KATHARINE hose to be added. Pain management and diet per general surgeon. Upper GI as above 2. History of congenital cardiomyopathy post AICD. Continue metoprolol 50 mg the morning and 100 mg at bedtime, Lasix and Aldactone on hold. 3. Diabetes mellitus type 2. Patient will be resumed on her lower dose of long acting with Levemir 15 units twice daily and NovoLog scale before meals and at bedtime. Scheduled NovoLog on hold. 4. Diabetic polyneuropathy. Continue gabapentin 800 mg 4 times daily, Cymbalta 60 mg orally twice every day, amitriptyline 40 mg at bedtime. 5. Restless leg syndrome. Continue patient on ropinirole 1 mg in the morning and 2 mg at bedtime. 6. Hyperlipidemia. Continue patient on Lipitor 20 mg orally once every day. 7. Vitamin D deficiency. Continue vitamin D 5000 units twice a day. 8. Obesity with possible obstructive sleep apnea. 9. Hypertension and hypertensive cardiovascular disease. Continue metoprolol 50 mg in the morning and 100 mg at bedtime. Efraín inhibitor will be resumed in the morning with parameters. Lasix and Aldactone on hold. 10. Mild intermittent asthma history. 11. Hyperkalemia, resolved. Status post 1 dose of Kayexalate today. Patient is a full code. Discharge plan: Return home Impression and plan of care have been directed as dictated by the signing physician. Radha Almeida nurse practitioner acting as scribe for signing physician.
== END 2018-04-20 12:02 | disposition home or self-care (01) | DRG 620 ==
LOC: 2ORMAIN 06:24 → 4SSUR 09:22
PROVIDERS: ADMIT Surgery; ATTEND Surgery
PROC: 0DB64Z3 Excision of Stomach, Percutaneous Endoscopic Approach, Vertical (ICD-10-PCS; principal; 2018-04-18 08:00)
DX: E66.01 Morbid (severe) obesity due to excess calories (principal); F33.9 Major depressive disorder, recurrent, unspecified; I42.4 Endocardial fibroelastosis; Z68.41 Body mass index [BMI] 40.0-44.9, adult; E11.42 Type 2 diabetes mellitus with diabetic polyneuropathy; E11.319 Type 2 diabetes mellitus with unspecified diabetic retinopathy without macular edema; K31.84 Gastroparesis; E87.5 Hyperkalemia; E11.43 Type 2 diabetes mellitus with diabetic autonomic (poly)neuropathy; I11.9 Hypertensive heart disease without heart failure; R13.10 Dysphagia, unspecified; G25.81 Restless legs syndrome; J45.20 Mild intermittent asthma, uncomplicated; F41.1 Generalized anxiety disorder; M79.7 Fibromyalgia; E78.5 Hyperlipidemia, unspecified; G89.29 Other chronic pain; E55.9 Vitamin D deficiency, unspecified; K21.9 Gastro-esophageal reflux disease without esophagitis; M50.90 Cervical disc disorder, unspecified, unspecified cervical region; M51.37 Other intervertebral disc degeneration, lumbosacral region; R26.9 Unspecified abnormalities of gait and mobility; Z79.890 Hormone replacement therapy; Z79.4 Long term (current) use of insulin; Z79.82 Long term (current) use of aspirin; Z79.899 Other long term (current) drug therapy; Z71.3 Dietary counseling and surveillance; Z95.810 Presence of automatic (implantable) cardiac defibrillator; Z90.49 Acquired absence of other specified parts of digestive tract; Z86.19 Personal history of other infectious and parasitic diseases; Z87.74 Personal history of (corrected) congenital malformations of heart and circulatory system; Z88.5 Allergy status to narcotic agent; Z88.8 Allergy status to other drugs, medicaments and biological substances; Z91.041 Radiographic dye allergy status; Z82.5 Family history of asthma and other chronic lower respiratory diseases; Z80.1 Family history of malignant neoplasm of trachea, bronchus and lung; Z83.3 Family history of diabetes mellitus; Z82.49 Family history of ischemic heart disease and other diseases of the circulatory system
CPT/HCPCS: 74240; 80048; 80051; 82310; 82565; 83036; 83735; 84100; 84132; 84520; 85025; 88307; 94640; 94760; 94762

== ENCOUNTER → 2018-04-23 | Outpatient (CLI) | payer MEDICARE, BC ==
[2018-04-23 13:33] VITALS: BP 140/66; PULSE 80; RESP 16; TEMP 97.9; BMI 38.8
--- NOTE | 2018-04-23 14:34 | P.HPBAR ---
Bariatric H&P - History & Physicial H&P Date: 04/23/18 History & Physicial: Visit/CC: sleeve follow-up Patient initial contact: Initial weight: 99.972 kg Initial weight in pounds: 220.40 Height: 5 ft Initial BMI: 43.0 Last weight: Current weight: 90.265 kg Current weight in pounds: 199.00 Current BMI: 38.8 [place] body weight (based on NIH guidelines): 45.359 kg Excess body weight loss: 17.7% The patient is a 52 year-old F who presents for Bariatric Assessment. Patient presents today for sleeve gastrectomy follow-up. She is approximately 2 weeks postoperative. She is doing excellent. She's had minimal complaints of pain. Past Medical History Past Medical History: Asthma, Diabetes Mellitus, Eye Disorder, Fibromyalgia, GERD/Reflux, Hyperlipidemia, Hypertension Additional Past Medical History / Comment(s): Mild intermittent bronchial asthma , obesity, VSD, cardiomyopathy, pacer/AICD in place, diabetes mellitus, diabetic retinopathy, diabetic gastroparesis, diabetic peripheral neuropathy, history of genital herpes, RLS, chronic back pain with degenerative disc disease involving L5 and S1 in addition to cervical disc disease involving C4 and C5, difficulty with mobility and the patient uses a walker/motorized scooter for longer distances. Hyperlipidemia, hypertension, fibromyalgia, acid reflux History of Any Multi-Drug Resistant Organisms: None Reported Past Surgical History: AICD, Appendectomy, Bariatric Surgery, Heart Catheterization, Orthopedic Surgery, Pacemaker, Tonsillectomy Additional Past Surgical History / Comment(s): Sinus surgery with correction of a deviated nasal septum, pacer/AICD placement, bilateral eye surgery with vitrectomy, treatment of a wound in the left foot and diabetic foot ulcer, history of I&D of an axillary staphylococcal infection, PICC line insertion and removal, shoulder surgery for a frozen shoulder, colonoscopy, VSD repair at age of sleeve gastrectomy 2-20-19 Past Anesthesia/Blood Transfusion Reactions: Previous Problems w/ Anesthesia Additional Past Anesthesia/Blood Transfusion Reaction / Comm: pt states she wakes up "slow and emotional-CRIES". Type of Cardiac Device: Permanent Pacemaker, AICD Device Placement Date:: 08/04/2016 BackType. Past Psychological History: Anxiety, Depression Additional Psychological History / Comment(s): . Smoking Status: Never smoker Past Alcohol Use History: Rare Additional Past Alcohol Use History / Comment(s): Patient is a lifelong nonsmoker. She denies any illicit drug use, alcohol abuse. Past Drug Use History: None Reported - Past Family History Mother Family Medical History: Cancer, COPD Additional Family Medical History / Comment(s): lung cancer at age 73 Father Family Medical History: AICD/Pacemaker, Coronary Artery Disease (CAD), Diabetes Mellitus, Hypertension, Myocardial Infarction (DC) Additional Family Medical History / Comment(s): DC @ AGE 43 @ AGE 62 Brother(s) Family Medical History: Myocardial Infarction (DC) Additional Family Medical History / Comment(s): HX DC X 3 -1ST ONE @ AGE 39 Surgical - Exam Vital Signs Temp Pulse Resp BP 97.9 F 80 16 140/66 04/23/18 13:30 04/23/18 13:30 04/23/18 13:30 04/23/18 13:30 - General well developed, well nourished, no distress - Eyes PERRL - ENT normal pinna - Neck no masses - Respiratory normal expansion - Cardiovascular Rhythm: regular - Abdomen Abdomen: soft, non tender Bariatric Assessment & Plan Plan: Status post sleeve gastrectomy. Patient did quite well. She'll follow-up in 2 weeks. Bariatric Checklist Checklist: Plan: Checklist: EGD: 1. Hiatal hernia: 2. H. Pylori: HgbA1c: Vitamin D: Smoking: Never smoker Primary care physician referral: hossein penaloza Psychiatry clearance: Cardiology clearance: Sleep study: Diet journal: VTE risk score: VTE risk level: Rehab needs at discharge:
== END | disposition home or self-care (01) ==
LOC: BARWHC3 13:04
PROVIDERS: ATTEND Surgery
DX: Z48.815 Encounter for surgical aftercare following surgery on the digestive system (principal); E66.01 Morbid (severe) obesity due to excess calories; Z68.38 Body mass index [BMI] 38.0-38.9, adult; Z90.49 Acquired absence of other specified parts of digestive tract; Z98.84 Bariatric surgery status; Z90.89 Acquired absence of other organs; Z98.890 Other specified postprocedural states
CPT/HCPCS: 97803; G0463; 99211

== ENCOUNTER → 2018-05-04 | Outpatient (CLI) | payer MEDICARE, BC ==
[2018-05-04] MEDS: SODIUM CHLORIDE 0.9% 1,000 ML IV SCH ×2 (12:45→13:47)
[2018-05-04 12:51] VITALS: BP 103/66; PULSE 80; RESP 16; TEMP 97.7
== END ==
LOC: PROCWHC3 12:31
PROVIDERS: ATTEND Surgery
DX: E86.0 Dehydration (principal)
CPT/HCPCS: 96360; 96361

== ENCOUNTER → 2018-05-07 | Outpatient (CLI) | payer MEDICARE, BC ==
[2018-05-07 13:22] VITALS: BP 107/61; PULSE 76; RESP 16; TEMP 98; BMI 37.7
== END | disposition home or self-care (01) ==
LOC: BARWHC3 12:35
PROVIDERS: ATTEND Surgery
DX: E66.01 Morbid (severe) obesity due to excess calories (principal); Z68.37 Body mass index [BMI] 37.0-37.9, adult
CPT/HCPCS: 97803; G0463; 99211

== ENCOUNTER → 2018-05-15 | Outpatient (CLI) | payer MEDICARE, BC ==
[2018-05-15 11:32] VITALS: BP 137/86; PULSE 91; TEMP 97.7; BMI 36.5
--- NOTE | 2018-05-15 11:43 | P.HPBAR ---
Bariatric H&P - History & Physicial H&P Date: 05/15/18 History & Physicial: Visit/CC: follow up visit Patient initial contact: Initial weight: 99.972 kg Initial weight in pounds: 220.40 Height: 5 ft Initial BMI: 43.0 Last weight: Current weight: 84.822 kg Current weight in pounds: 187.00 Current BMI: 36.5 [place] body weight (based on NIH guidelines): 45.359 kg Excess body weight loss: 27.7% The patient is a 52 year-old F who presents for Bariatric Assessment. She presents today for bariatric follow-up. She states he had some drainage near her umbilical incision. She's had no further drainage. She denies any pain. Past Medical History Past Medical History: Asthma, Diabetes Mellitus, Eye Disorder, Fibromyalgia, GERD/Reflux, Hyperlipidemia, Hypertension Additional Past Medical History / Comment(s): Mild intermittent bronchial asthma, obesity, VSD, cardiomyopathy, pacer/AICD in place, diabetes mellitus, diabetic retinopathy, diabetic gastroparesis, diabetic peripheral neuropathy, history of genital herpes, RLS, chronic back pain with degenerative disc disease involving L5 and S1 in addition to cervical disc disease involving C4 and C5, difficulty with mobility and the patient uses a walker/motorized scooter for longer distances. Hyperlipidemia, hypertension, fibromyalgia, acid reflux History of Any Multi-Drug Resistant Organisms: None Reported Past Surgical History: AICD, Appendectomy, Bariatric Surgery, Heart Catheterization, Orthopedic Surgery, Pacemaker, Tonsillectomy Additional Past Surgical History / Comment(s): Sinus surgery with correction of a deviated nasal septum, pacer/AICD placement, bilateral eye surgery with vitrectomy, treatment of a wound in the left foot and diabetic foot ulcer, history of I&D of an axillary staphylococcal infection, PICC line insertion and removal, shoulder surgery for a frozen shoulder, colonoscopy, VSD repair at age of sleeve gastrectomy 2-20-19 Past Anesthesia/Blood Transfusion Reactions: Previous Problems w/ Anesthesia Additional Past Anesthesia/Blood Transfusion Reaction / Comm: pt states she wakes up "slow and emotional-CRIES". Type of Cardiac Device: Permanent Pacemaker, AICD Device Placement Date:: 08/04/2016 [employer] Past Psychological History: Anxiety, Depression Additional Psychological History / Comment(s): . Smoking Status: Never smoker Past Alcohol Use History: Rare Additional Past Alcohol Use History / Comment(s): Patient is a lifelong nonsmoker. She denies any illicit drug use, alcohol abuse. Past Drug Use History: None Reported - Past Family History Mother Family Medical History: Cancer, COPD Additional Family Medical History / Comment(s): lung cancer at age 73 Father Family Medical History: AICD/Pacemaker, Coronary Artery Disease (CAD), Diabetes Mellitus, Hypertension, Myocardial Infarction ([place]) Additional Family Medical History / Comment(s): [place] @ AGE 43 @ AGE 62 Brother(s) Family Medical History: Myocardial Infarction ([place]) Additional Family Medical History / Comment(s): HX [place] X 3 -1ST ONE @ AGE 39 Surgical - Exam Vital Signs Temp Pulse BP 97.7 F 91 137/86 05/15/18 11:28 05/15/18 11:28 05/15/18 11:28 - General well developed, well nourished, no distress - Eyes PERRL - ENT normal pinna - Neck no masses - Respiratory normal expansion - Cardiovascular Rhythm: regular - Abdomen The umbilical trocar site has had a some dehiscence of the skin. There is no evidence of infection. There is known to any cellulitis. Abdomen: soft, non tender Bariatric Assessment & Plan Plan: Umbilical trocar site skin dehiscence. Patient will continue local care. There is no evidence of infection. Bariatric Checklist Checklist: Plan: Checklist: EGD: 1. Hiatal hernia: 2. H. Pylori: HgbA1c: Vitamin D: Smoking: Never smoker Primary care physician referral: Dr. Samantha Vann Psychiatry clearance: Cardiology clearance: Sleep study: Diet journal: VTE risk score: VTE risk level: Rehab needs at discharge:
== END ==
LOC: BARWHC3 10:08
PROVIDERS: ATTEND Surgery
DX: T81.31XA Disruption of external operation (surgical) wound, not elsewhere classified, initial encounter (principal); Z98.84 Bariatric surgery status
CPT/HCPCS: 99211

== ENCOUNTER → 2018-05-21 | Outpatient (CLI) | payer MEDICARE, BC ==
[2018-05-21 14:20] VITALS: BP 143/79; PULSE 97; TEMP 97.8; BMI 36.1
--- NOTE | 2018-05-25 11:40 | P.HPBAR ---
Bariatric H&P - History & Physicial H&P Date: 05/21/18 History & Physicial: Visit/CC: one month follow up Patient initial contact: Initial weight: 99.972 kg Initial weight in pounds: 220.40 Height: 5 ft Initial BMI: 43.0 Last weight: Current weight: 83.915 kg Current weight in pounds: 185.00 Current BMI: 36.1 [place] body weight (based on NIH guidelines): 45.359 kg Excess body weight loss: 29.4% The patient is a 52 year-old F who presents for Bariatric Assessment. Patient presents today for sleeve gastric and follow-up. She's had some minimal GERD. She states that she feels well otherwise. She's had some dehiscence of the skin at her umbilical site. She denies any drainage. Past Medical History Past Medical History: Asthma, Diabetes Mellitus, Eye Disorder, Fibromyalgia, GERD/Reflux, Hyperlipidemia, Hypertension Additional Past Medical History / Comment(s): Mild intermittent bronchial asthma, obesity, VSD, cardiomyopathy, pacer/AICD in place, diabetes mellitus, diabetic retinopathy, diabetic gastroparesis, diabetic peripheral neuropathy, history of genital herpes, RLS, chronic back pain with degenerative disc disease involving L5 and S1 in addition to cervical disc disease involving C4 and C5, di fficulty with mobility and the patient uses a walker/motorized scooter for longer distances. Hyperlipidemia, hypertension, fibromyalgia, acid reflux History of Any Multi-Drug Resistant Organisms: None Reported Past Surgical History: AICD, Appendectomy, Bariatric Surgery, Heart Catheterization, Orthopedic Surgery, Pacemaker, Tonsillectomy Additional Past Surgical History / Comment(s): Sinus surgery with correction of a deviated nasal septum, pacer/AICD placement, bilateral eye surgery with vitrectomy, treatment of a wound in the left foot and diabetic foot ulcer, history of I&D of an axillary staphylococcal infection, PICC line insertion and removal, shoulder surgery for a frozen shoulder, colonoscopy, VSD repair at age of sleeve gastrectomy 2-20-19 Past Anesthesia/Blood Transfusion Reactions: Previous Problems w/ Anesthesia Additional Past Anesthesia/Blood Transfusion Reaction / Comm: pt states she wakes up "slow and emotional-CRIES". Type of Cardiac Device: Permanent Pacemaker, AICD Device Placement Date:: 08/04/2016 [employer]. Past Psychological History: Anxiety, Depression Additional Psychological History / Comment(s): . Smoking Status: Never smoker Past Alcohol Use History: Rare Additional Past Alcohol Use History / Comment(s): Patient is a lifelong nonsmoker. She denies any illicit drug use, alcohol abuse. Past Drug Use History: None Reported - Past Family History Mother Family Medical History: Cancer, COPD Additional Family Medical History / Comment(s): lung cancer at age 73 Father Family Medical History: AICD/Pacemaker, Coronary Artery Disease (CAD), Diabetes Mellitus, Hypertension, Myocardial Infarction ([place]) Additional Family Medical History / Comment(s): [place] @ AGE 43 @ AGE 62 Brother(s) Family Medical History: Myocardial Infarction ([place]) Additional Family Medical History / Comment(s): HX [place] X 3 -1ST ONE @ AGE 39 Surgical - Exam Vital Signs Temp Pulse BP 97.8 F 97 143/79 05/21/18 14:15 05/21/18 14:15 05/21/18 14:15 - General well developed, well nourished, no distress - Eyes PERRL - Abdomen Skin dehiscence of trocar site above the umbilicus without evidence of infection Abdomen: soft, non tender Bariatric Assessment & Plan Plan: Test. Gastrectomy. Patient's girth is minimal will be observed. Patient will provide local wound care to the skin dehiscence at her umbilical trocar site. Bariatric Checklist Checklist: Plan: Checklist: EGD: 1. Hiatal hernia: 2. H. Pylori: HgbA1c: Vitamin D: Smoking: Never smoker Primary care physician referral: Dr. Samantha Vann Psychiatry clearance: Cardiology clearance: Sleep study: Diet journal: VTE risk score: VTE risk level: Rehab needs at discharge:
== END ==
LOC: BARWHC3 13:44
PROVIDERS: ATTEND Surgery
DX: T81.31XA Disruption of external operation (surgical) wound, not elsewhere classified, initial encounter (principal); E66.9 Obesity, unspecified; Z68.36 Body mass index [BMI] 36.0-36.9, adult; Z98.84 Bariatric surgery status; K21.9 Gastro-esophageal reflux disease without esophagitis
CPT/HCPCS: 99211

== ENCOUNTER → 2018-06-04 | Outpatient (CLI) | payer MEDICARE, BC ==
[2018-06-04 15:50] VITALS: BP 143/69; PULSE 72; RESP 16; TEMP 97.7; BMI 35.9
--- NOTE | 2018-06-08 11:43 | P.HPBAR ---
Bariatric H&P - History & Physicial H&P Date: 06/04/18 History & Physicial: Visit/CC: sleeve follow-up Patient initial contact: Initial weight: 99.972 kg Initial weight in pounds: 220.40 Height: 5 ft Initial BMI: 43.0 Last weight: Current weight: 83.461 kg Current weight in pounds: 184.00 Current BMI: 35.9 [place] body weight (based on NIH guidelines): 45.359 kg Excess body weight loss: 30.2% The patient is a 52 year-old F who presents for Bariatric Assessment. Patient presents today for sleeve gastrectomy follow-up. She is doing quite well. She's had some mild GERD. Past Medical History Past Medical History: Asthma, Diabetes Mellitus, Eye Disorder, Fibromyalgia, GERD/Reflux, Hyperlipidemia, Hypertension Additional Past Medical History / Comment(s): Mild intermittent bronchial asthma, obesity, VSD, cardiomyopathy, pacer/AICD in place, diabetes mellitus, diabetic retinopathy, diabetic gastroparesis, diabetic peripheral neuropathy, history of genital herpes, RLS, chronic back pain with degenerative disc disease involving L5 and S1 in addition to cervical disc disease involving C4 and C5, difficulty with mobility and the patient uses a walker/motorized scooter for longer distances. Hyperlipidemia, hypertension, fibromyalgia, acid reflux History of Any Multi-Drug Resistant Organisms: None Reported Past Surgical History: AICD, Appendectomy, Bariatric Surgery, Heart Catheterization, Orthopedic Surgery, Pacemaker, Tonsillectomy Additional Past Surgical History / Comment(s): Sinus surgery with correction of a deviated nasal septum, pacer/AICD placement, bilateral eye surgery with vitrectomy, treatment of a wound in the left foot and diabetic foot ulcer, history of I&D of an axillary staphylococcal infection, PICC line insertion and removal, shoulder surgery for a frozen shoulder, colonoscopy, VSD repair at age of sleeve gastrectomy 2-20-19 Past Anesthesia/Blood Transfusion Reactions: Previous Problems w/ Anesthesia Additional Past Anesthesia/Blood Transfusion Reaction / Comm: pt states she wakes up "slow and emotional-CRIES". Type of Cardiac Device: Permanent Pacemaker, AICD Device Placement Date:: 08/04/[address] [employer] Past Psychological History: Anxiety, Depression Additional Psychological History / Comment(s): . Smoking Status: Never smoker Past Alcohol Use History: Rare Additional Past Alcohol Use History / Comment(s): Patient is a lifelong nonsmoker. She denies any illicit drug use, alcohol abuse. Past Drug Use History: None Reported - Past Family History Mother Family Medical History: Cancer, COPD Additional Family Medical History / Comment(s): lung cancer at age 73 Father Family Medical History: AICD/Pacemaker, Coronary Artery Disease (CAD), Diabetes Mellitus, Hypertension, Myocardial Infarction ([place]) Additional Family Medical History / Comment(s): [place] @ AGE 43 @ AGE 62 Brother(s) Family Medical History: Myocardial Infarction ([place]) Additional Family Medical History / Comment(s): HX [place] X 3 -1ST ONE @ AGE 39 Surgical - Exam Vital Signs Temp Pulse Resp BP 97.7 F 72 16 143/69 06/04/18 15:42 06/04/18 15:42 06/04/18 15:42 06/04/18 15:42 - General well developed, well nourished, no distress - Abdomen Abdomen: soft, non tender Bariatric Assessment & Plan Plan: Status post sleeve gastrectomy. Patient's there is minimal will be observed. She'll follow-up in 4 weeks. Bariatric Checklist Checklist: Plan: Checklist: EGD: 1. Hiatal hernia: 2. H. Pylori: HgbA1c: Vitamin D: Smoking: Never smoker Primary care physician referral: Dr. Samantha Vann Psychiatry clearance: Cardiology clearance: Sleep study: Diet journal: VTE risk score: VTE risk level: Rehab needs at discharge:
== END | disposition home or self-care (01) ==
LOC: BARWHC3 13:51
PROVIDERS: ATTEND Surgery
DX: Z48.815 Encounter for surgical aftercare following surgery on the digestive system (principal); K21.9 Gastro-esophageal reflux disease without esophagitis; E66.01 Morbid (severe) obesity due to excess calories; Z98.84 Bariatric surgery status
CPT/HCPCS: 99211

== ENCOUNTER → 2018-07-24 | Outpatient (CLI) | payer MEDICARE, BC ==
[2018-07-24 19:00] LABS: Albumin 4.2 g/dL (3.80-4.90); Albumin/Globulin Ratio 1.5 (1.60-3.17); Anion Gap 6.3 mmol/L (4.00-12.00); Calcium 9.9 mg/dL (8.7-10.3); Carbon Dioxide 29.7 mmol/L (21.6-31.8); Globulin 2.8 g/dL (1.6-3.3); Potassium 5.7 mmol/L (3.5-5.5); Total Bilirubin 0.4 mg/dL (0.2-1.2)
[2018-07-24 20:57] LABS: Hemoglobin A1C 9.8 % (4.0-6.0)
== END | disposition home or self-care (01) ==
LOC: LABWHC1 11:57
PROVIDERS: ATTEND Internal Medicine
DX: E11.65 Type 2 diabetes mellitus with hyperglycemia (principal); E78.2 Mixed hyperlipidemia; I42.8 Other cardiomyopathies
CPT/HCPCS: 36415; 80053; 80061; 82043; 82570; 83036

== ENCOUNTER → 2018-08-27 | Outpatient (CLI) | payer MEDICARE, BC ==
[2018-08-27 15:06] VITALS: BP 110/63; PULSE 80; TEMP 97.9; BMI 31.3
[2018-08-27 16:12] LABS: HGB 13.7 gm/dL (11.4-16.0); MCH 28.2 pg (25.0-35.0); Mean Platelet Volume 7.4; Platelet Count 279 k/uL (150-450); RBC 4.84 m/uL (3.80-5.40); RDW 13.6 % (11.5-15.5); WBC 10.6 k/uL (3.8-10.6)
[2018-08-28 01:39] LABS: Vitamin D 25 Hydroxy 54.3 ng/mL (30.0-100.0)
[2018-08-28 01:40] LABS: African American GFR (CKD) 85.2 (60.0-200.0); Albumin 4.3 g/dL (3.80-4.90); Albumin/Globulin Ratio 1.54 (1.60-3.17); Anion Gap 14.3 mmol/L (4.00-12.00); BUN/Creat Ratio 18.89 Ratio (12.00-20.00); Calcium 9.4 mg/dL (8.7-10.3); Carbon Dioxide 26.7 mmol/L (21.6-31.8); Globulin 2.8 g/dL (1.6-3.3); Potassium 4.7 mmol/L (3.5-5.5); Total Bilirubin 0.4 mg/dL (0.3-1.2); Total Protein 7.1 g/dL (6.2-8.2)
--- NOTE | 2018-09-14 13:41 | P.HPBAR ---
Bariatric H&P - History & Physicial H&P Date: 08/27/18 History & Physicial: Visit/CC: 5 mos post sleeve Patient initial contact: Initial weight: 99.972 kg Initial weight in pounds: 220.40 Height: 5 ft Initial BMI: 43.0 Last weight: Current weight: 72.756 kg Current weight in pounds: 160.40 Current BMI: 31.3 [place] body weight (based on NIH guidelines): 45.359 kg Excess body weight loss: 49.8% The patient is a 53 year-old F who presents for Bariatric Assessment. Patient presents today for sleeve gastrectomy full. She's had some minimal GERD. Past Medical History Past Medical History: Asthma, Diabetes Mellitus, Eye Disorder, Fibromyalgia, GERD/Reflux, Hyperlipidemia, Hypertension Additional Past Medical History / Comment(s): Mild intermittent bronchial asthma, obesity, VSD, cardiomyopathy, pacer/AICD in place, diabetes mellitus, diabetic retinopathy, diabetic gastroparesis, diabetic peripheral neuropathy, history of genital herpes, RLS, chronic back pain with degenerative disc disease involving L5 and S1 in addition to cervical disc disease involving C4 and C5, difficulty with mobility and the patient uses a walker/motorized scooter for longer distances. Hyperlipidemia, hypertension, fibromyalgia, acid reflux History of Any Multi-Drug Resistant Organisms: None Reported Past Surgical History: AICD, Appendectomy, Bariatric Surgery, Heart Catheteri zation, Orthopedic Surgery, Pacemaker, Tonsillectomy Additional Past Surgical History / Comment(s): Sinus surgery with correction of a deviated nasal septum, pacer/AICD placement, bilateral eye surgery with vitrectomy, treatment of a wound in the left foot and diabetic foot ulcer, history of I&D of an axillary staphylococcal infection, PICC line insertion and removal, shoulder surgery for a frozen shoulder, colonoscopy, VSD repair at age of sleeve gastrectomy 2-20-19 Past Anesthesia/Blood Transfusion Reactions: Previous Problems w/ Anesthesia Additional Past Anesthesia/Blood Transfusion Reaction / Comm: pt states she wakes up "slow and emotional-CRIES". Type of Cardiac Device: Permanent Pacemaker, AICD Device Placement Date:: 08/04/2016 [employer]. Past Psychological History: Anxiety, Depression Additional Psychological History / Comment(s): . Smoking Status: Never smoker Past Alcohol Use History: Rare Additional Past Alcohol Use History / Comment(s): Patient is a lifelong nonsmoker. She denies any illicit drug use, alcohol abuse. Past Drug Use History: None Reported - Past Family History Mother Family Medical History: Cancer, COPD Additional Family Medical History / Comment(s): lung cancer at age 73 Father Family Medical History: AICD/Pacemaker, Coronary Artery Disease (CAD), Diabetes Mellitus, Hypertension, Myocardial Infarction ([place]) Additional Family Medical History / Comment(s): [place] @ AGE 43 @ AGE 62 Brother(s) Family Medical History: Myocardial Infarction ([place]) Additional Family Medical History / Comment(s): HX [place] X 3 -1ST ONE @ AGE 39 Surgical - Exam Vital Signs Temp Pulse BP 97.9 F 80 110/63 08/27/18 14:52 08/27/18 14:52 08/27/18 14:52 - General well developed, well nourished, no distress - Abdomen Abdomen: soft, non tender Results - Labs 08/27/18 15:24 08/27/18 15:24 Bariatric Assessment & Plan Plan: Status post sleeve gastrectomy. Patient appears minimal old observed. She'll follow-up in 4 weeks. Bariatric Checklist Checklist: Plan: Checklist: EGD: 1. Hiatal hernia: 2. H. Pylori: HgbA1c: Vitamin D: Smoking: Never smoker Primary care physician referral: Dr. Shai Vann ([place]) Psychiatry clearance: Cardiology clearance: Sleep study: Diet journal: VTE risk score: VTE risk level: Rehab needs at discharge:
== END | disposition home or self-care (01) ==
LOC: BARWHC3 14:28
PROVIDERS: ATTEND Surgery
DX: Z48.815 Encounter for surgical aftercare following surgery on the digestive system (principal); E44.0 Moderate protein-calorie malnutrition; E55.9 Vitamin D deficiency, unspecified; Z98.84 Bariatric surgery status
CPT/HCPCS: 84134; 84425; 80053; 82607; 84443; 85027; 82306; 36415; G0463; 99211

== ENCOUNTER → 2019-01-07 | Outpatient (CLI) | payer BC, MEDICARE ==
[2019-01-07 13:27] VITALS: BP 113/69; PULSE 81; TEMP 97.9; BMI 29.2
== END | disposition home or self-care (01) ==
LOC: BARWHC3 12:55
PROVIDERS: ATTEND Surgery
DX: Z09 Encounter for follow-up examination after completed treatment for conditions other than malignant neoplasm (principal); Z98.84 Bariatric surgery status; E66.01 Morbid (severe) obesity due to excess calories; M79.7 Fibromyalgia
CPT/HCPCS: 97803; G0463; 99211

== ENCOUNTER → 2019-04-06 | Outpatient (CLI) | payer MEDICARE ==
[2019-04-06 12:07] LABS: HGB 12.7 gm/dL (11.4-16.0); MCH 29.4 pg (25.0-35.0); MCHC 31.7 g/dL (31.0-37.0); MCV 92.7 fL (80.0-100.0); Mean Platelet Volume 8.4; Platelet Count 188 k/uL (150-450); RBC 4.31 m/uL (3.80-5.40); RDW 12.9 % (11.5-15.5); WBC 9.2 k/uL (3.8-10.6)
[2019-04-06 18:54] LABS: African American GFR (CKD) 98.2 (60.0-200.0); Albumin/Globulin Ratio 1.67 (1.60-3.17); Anion Gap 9.1 mmol/L (4.00-12.00); BUN/Creat Ratio 22.5 Ratio (12.00-20.00); Calcium 9.4 mg/dL (8.7-10.3); Carbon Dioxide 29.9 mmol/L (21.6-31.8); Globulin 2.4 g/dL (1.6-3.3); Non-African American GFR(CKD) 84.8 (60.0-200.0); Potassium 4.6 mmol/L (3.5-5.5); Total Bilirubin 0.4 mg/dL (0.2-1.2); Total Protein 6.4 g/dL (6.2-8.2)
== END | disposition home or self-care (01) ==
LOC: LABWHC1 11:34
PROVIDERS: ATTEND Surgery
DX: E66.01 Morbid (severe) obesity due to excess calories (principal); E44.0 Moderate protein-calorie malnutrition; E55.9 Vitamin D deficiency, unspecified
CPT/HCPCS: 36415; 80053; 82306; 82607; 82746; 84425; 84443; 85027

== ENCOUNTER → 2019-04-08 | Outpatient (CLI) | payer MEDICARE ==
[2019-04-08 13:21] VITALS: BP 135/81; PULSE 73; TEMP 97.8; BMI 27.4
--- NOTE | 2019-04-15 14:50 | P.HPBAR ---
Bariatric H&P - History & Physicial H&P Date: 04/08/19 History & Physicial: Visit/CC: one year sleeve f/u Patient initial contact: Initial weight: 101.469 kg Initial weight in pounds: 223.70 Height: 5 ft Initial BMI: 43.7 Last weight: Current weight: 63.684 kg Current weight in pounds: 140.40 Current BMI: 27.4 [place] body weight (based on NIH guidelines): 45.359 kg Excess body weight loss: 67.3% The patient is a 53 year-old F who presents for Bariatric Assessment. Patient presents today for sleeve gastrectomy follow-up. She is doing quite well. She's had minimal complaints of dysphagia. She's had some mild GERD. Past Medical History Past Medical History: Asthma, Diabetes Mellitus, Eye Disorder, Fibromyalgia, GERD/Reflux, Hyperlipidemia, Hypertension Additional Past Medical History / Comment(s): Mild intermittent bronchial asthma, obesity, VSD, cardiomyopathy, pacer/AICD in place, diabetes mellitus, diabetic retinopathy, diabetic gastroparesis, diabetic peripheral neuropathy, history of genital herpes, RLS, chronic back pain with degenerative disc disease involving L5 and S1 in addition to cervical disc disease involving C4 and C5, difficulty with mobility and the patient uses a walker/motorized scooter for longer distances. Hyperlipidemia, hypertension, fibromyalgia, acid reflux History of Any Multi-Drug Resistant Organisms: None Reported Past Surgical History: AICD, Appendectomy, Bariatric Surgery, Heart Catheterization, Orthopedic Surgery, Pacemaker, Tonsillectomy Additional Past Surgical History / Comment(s): Sinus surgery with correction of a deviated nasal septum, pacer/AICD placement, bilateral eye surgery with vitrectomy, treatment of a wound in the left foot and diabetic foot ulcer, history of I&D of an axillary staphylococcal infection, PICC line insertion and removal, shoulder surgery for a frozen shoulder, colonoscopy, VSD repair at age of ,sleeve gastrectomy 2-20-19 Past Anesthesia/Blood Transfusion Reactions: Previous Problems w/ Anesthesia Additional Past Anesthesia/Blood Transfusion Reaction / Comm: pt states she wakes up "slow and emotional-CRIES". Type of Cardiac Device: Permanent Pacemaker, AICD Device Placement Date:: 08/04/2016 [employer]. Past Psychological History: Anxiety, Depression Additional Psychological History / Comment(s): . Smoking Status: Never smoker Past Alcohol Use History: Rare Additional Past Alcohol Use History / Comment(s): Patient is a lifelong nonsmoker. She denies any illicit drug use, alcohol abuse. Past Drug Use History: None Reported - Past Family History Mother Family Medical History: Cancer, COPD Additional Family Medical History / Comment(s): lung cancer at age 73 Father Family Medical History: AICD/Pacemaker, Coronary Artery Disease (CAD), Diabetes Mellitus, Hypertension, Myocardial Infarction ([place]) Additional Family Medical History / Comment(s): [place] @ AGE 43 @ AGE 62 Brother(s) Family Medical History: Myocardial Infarction ([place]) Additional Family Medical History / Comment(s): HX [place] X 3 -1ST ONE @ AGE 39 Surgical - Exam Vital Signs Temp Pulse BP 97.8 F 73 135/81 04/08/19 13:07 04/08/19 13:07 04/08/19 13:07 - General well developed, well nourished, no distress - Eyes PERRL - ENT normal pinna - Neck no masses - Respiratory normal expansion - Cardiovascular Rhythm: regular - Abdomen Abdomen: soft, non tender Bariatric Assessment & Plan Plan: Status post sleeve gastrectomy. Patient's GERD is minimal observed. She'll follow-up in 4 weeks. Bariatric Checklist Checklist: Plan: Checklist: EGD: 1. Hiatal hernia: 2. H. Pylori: HgbA1c: Vitamin D: Smoking: Never smoker Primary care physician referral: Dr. Shai Vann ([place]) Psychiatry clearance: Cardiology clearance: Sleep study: Diet journal: VTE risk score: VTE risk level: Rehab needs at discharge:
== END | disposition home or self-care (01) ==
LOC: BARWHC3 12:48
PROVIDERS: ATTEND Surgery
DX: Z48.815 Encounter for surgical aftercare following surgery on the digestive system (principal); K21.9 Gastro-esophageal reflux disease without esophagitis; Z98.84 Bariatric surgery status; Z90.49 Acquired absence of other specified parts of digestive tract
CPT/HCPCS: 99211

== ENCOUNTER → 2019-07-15 | Outpatient (CLI) | payer MEDICARE ==
[2019-07-15 14:16] VITALS: BP 107/71; PULSE 83; RESP 20; TEMP 98.5; BMI 26.4
--- NOTE | 2019-07-15 14:39 | P.HPBAR ---
Bariatric H&P - History & Physicial H&P Date: 07/15/19 History & Physicial: Visit/CC: follow up visit Patient initial contact: Initial weight: 101.469 kg Initial weight in pounds: 223.70 Height: 5 ft Initial BMI: 43.7 Last weight: Current weight: 61.552 kg Current weight in pounds: 135.70 Current BMI: 26.4 [place] body weight (based on NIH guidelines): 45.359 kg Excess body weight loss: 71.1% The patient is a 53 year-old F who presents for Bariatric Assessment. Patient presents today for bariatric follow-up. She is also to 5 pounds her last visit. She's had some minimal GERD. She denies any dysphagia. Past Medical History Past Medical History: Asthma, Diabetes Mellitus, Eye Disorder, Fibromyalgia, GERD/Reflux, Hyperlipidemia, Hypertension Additional Past Medical History / Comment(s): Mild intermittent bronchial asthma, obesity, VSD, cardiomyopathy, pacer/AICD in place, diabetes mellitus, diabetic retinopathy, diabetic gastroparesis, diabetic peripheral neuropathy, history of genital herpes, RLS, chronic back pain with degenerative disc disease involving L5 and S1 in addition to cervical disc disease involving C4 and C5, difficulty with mobility and the patient uses a walker/motorized scooter for longer distances. Hyperlipidemia, hypertension, fibromyalgia, acid reflux History of Any Multi-Drug Resistant Organisms: None Reported Past Surgical History: AICD, Appendectomy, Bariatric Surgery, Heart Catheterization, Orthopedic Surgery, Pacemaker, Tonsillectomy Additional Past Surgical History / Comment(s): Sinus surgery with correction of a deviated nasal septum, pacer/AICD placement, bilateral eye surgery with vitrectomy, treatment of a wound in the left foot and diabetic foot ulcer, history of I&D of an axillary staphylococcal infection, PICC line insertion and removal, shoulder surgery for a frozen shoulder, colonoscopy, VSD repair at age of ,sleeve gastrectomy 2-20-19 Past Anesthesia/Blood Transfusion Reactions: Previous Problems w/ Anesthesia Additional Past Anesthesia/Blood Transfusion Reaction / Comm: pt states she wakes up "slow and emotional-CRIES". Type of Cardiac Device: Permanent Pacemaker, AICD Device Placement Date:: 08/04/2016 [employer]. Smoking Status: Never smoker - Past Family History Mother Family Medical History: Cancer, COPD Additional Family Medical History / Comment(s): lung cancer at age 73 Father Family Medical History: AICD/Pacemaker, Coronary Artery Disease (CAD), Diabetes Mellitus, Hypertension, Myocardial Infarction ([place]) Additional Family Medical History / Comment(s): [place] @ AGE 43 @ AGE 62 Brother(s) Family Medical History: Myocardial Infarction ([place]) Additional Family Medical History / Comment(s): HX [place] X 3 -1ST ONE @ AGE 39 Surgical - Exam Vital Signs Temp Pulse Resp BP 98.5 F 83 20 107/71 07/15/19 14:13 07/15/19 14:13 07/15/19 14:13 07/15/19 14:13 - General well developed, well nourished, no distress - Eyes PERRL - ENT normal pinna - Neck no masses - Respiratory normal expansion - Cardiovascular Rhythm: regular - Abdomen Abdomen: soft, non tender Bariatric Assessment & Plan Plan: Status post sleeve gastrectomy. Patient is doing quite well. Her GERD is minimal she'll be observed. She'll follow-up in 4 weeks. Bariatric Checklist Checklist: Plan: Checklist: EGD: 1. Hiatal hernia: 2. H. Pylori: HgbA1c: Vitamin D: Smoking: Never smoker Primary care physician referral: Dr. Shai Vann ([place]) Psychiatry clearance: Cardiology clearance: Sleep study: Diet journal: VTE risk score: VTE risk level: Rehab needs at discharge:
== END | disposition home or self-care (01) ==
LOC: BARWHC3 13:53
PROVIDERS: ATTEND Surgery
DX: Z48.815 Encounter for surgical aftercare following surgery on the digestive system (principal); K21.9 Gastro-esophageal reflux disease without esophagitis; Z98.84 Bariatric surgery status
CPT/HCPCS: 99211

== ENCOUNTER → 2019-10-14 | Outpatient (CLI) | payer MEDICARE ==
--- NOTE | 2019-10-14 13:51 | P.HPBAR ---
Bariatric H&P - History & Physicial H&P Date: 10/14/19 History & Physicial: Visit/CC: Patient initial contact: Initial weight: 101.469 kg Initial weight in pounds: Height: Initial BMI: Last weight: 135 Current weight: 127 Current weight in pounds: Current BMI: [place] body weight (based on NIH guidelines): Excess body weight loss: The patient is a 54 year-old F who presents for Bariatric Assessment. Patient presents today for sleeve gastrectomy fall. She's had some minimal GERD. She's had excellent weight loss. She lost approximately 93 pounds. Past Medical History Past Medical History: Asthma, Diabetes Mellitus, Eye Disorder, Fibromyalgia, GERD/Reflux, Hyperlipidemia, Hypertension Additional Past Medical History / Comment(s): Mild intermittent bronchial asthma, obesity, VSD, cardiomyopathy, pacer/AICD in place, diabetes mellitus, diabetic retinopathy, diabetic gastroparesis, diabetic peripheral neuropathy, history of genital herpes, RLS, chronic back pain with degenerative disc disease involving L5 and S1 in addition to cervical disc disease involving C4 and C5, difficulty with mobility and the patient uses a walker/motorized scooter for longer distances. Hyperlipidemia, hypertension, fibromyalgia, acid reflux History of Any Multi-Drug Resistant Organisms: None Reported Past Surgical History: AICD, Appendectomy, Bariatric Surgery, Heart Catheterization, Orthopedic Surgery, Pacemaker, Tonsillectomy Additional Past Surgical History / Comment(s): Sinus surgery with correction of a deviated nasal septum, pacer/AICD placement, bilateral eye surgery with vitrectomy, treatment of a wound in the left foot and diabetic foot ulcer, history of I&D of an axillary staphylococcal infection, PICC line insertion and removal, shoulder surgery for a frozen shoulder, colonoscopy, VSD repair at age of ,sleeve gastrectomy 2-20-19 Past Anesthesia/Blood Transfusion Reactions: Previous Problems w/ Anesthesia Additional Past Anesthesia/Blood Transfusion Reaction / Comm: pt states she wakes up "slow and emotional-CRIES". Type of Cardiac Device: Permanent Pacemaker, AICD Device Placement Date:: 08/04/2016 [employer]. Past Psychological History: Anxiety, Depression Additional Psychological History / Comment(s): . Past Alcohol Use History: Rare Additional Past Alcohol Use History / Comment(s): Patient is a lifelong nonsmoker. She denies any illicit drug use, alcohol abuse. Past Drug Use History: None Reported - Past Family History Mother Family Medical History: Cancer, COPD Additional Family Medical History / Comment(s): lung cancer at age 73 Father Family Medical History: AICD/Pacemaker, Coronary Artery Disease (CAD), Diabetes Mellitus, Hypertension, Myocardial Infarction ([place]) Additional Family Medical History / Comment(s): [place] @ AGE 43 @ AGE 62 Brother(s) Family Medical History: Myocardial Infarction ([place]) Additional Family Medical History / Comment(s): HX [place] X 3 -1ST ONE @ AGE 39 Surgical - Exam - General well developed, well nourished, no distress - Eyes PERRL - ENT normal pinna - Neck no masses - Respiratory normal expansion - Cardiovascular Rhythm: regular - Abdomen Abdomen: soft, non tender Bariatric Assessment & Plan Plan: Status post sleeve gastrectomy. Patient's had excellent weight loss. Her GERD is minimal and will be observed. Bariatric Checklist Checklist: Plan: Checklist: EGD: 1. Hiatal hernia: 2. H. Pylori: HgbA1c: Vitamin D: Smoking: Never smoker Primary care physician referral: Dr. Shai Vann ([place]) Psychiatry clearance: Cardiology clearance: Sleep study: Diet journal: VTE risk score: VTE risk level: Rehab needs at discharge:
[2019-10-14 14:52] VITALS: BP 114/70; PULSE 77; TEMP 98; BMI 24.7
[2019-10-14 23:43] LABS: % Iron Saturation 16.36 (12.00-45.00)
[2019-10-14 23:54] LABS: Folate, Serum 12.8 ng/mL
[2019-10-15 14:20] LABS: Vitamin A 46 ug/dL (38-106)
[2019-10-15 14:33] LABS: Zinc, Serum 59 ug/dL (60-130)
[2019-10-16 06:19] LABS: Vit B1(Thiamine) 59 ug/L (38-122)
== END | disposition home or self-care (01) ==
LOC: BARWHC3 12:57
PROVIDERS: ATTEND Surgery
DX: Z48.815 Encounter for surgical aftercare following surgery on the digestive system (principal); K21.9 Gastro-esophageal reflux disease without esophagitis; K50.90 Crohn's disease, unspecified, without complications; E66.01 Morbid (severe) obesity due to excess calories; D50.8 Other iron deficiency anemias; E55.9 Vitamin D deficiency, unspecified; Z68.24 Body mass index [BMI] 24.0-24.9, adult; Z98.84 Bariatric surgery status; Z90.49 Acquired absence of other specified parts of digestive tract
CPT/HCPCS: 84134; 84425; 82607; 82728; 82746; 83540; 83550; 84590; 84630; 82306; 36415; G0463; 99211

== ENCOUNTER → 2019-12-09 | Outpatient (CLI) | payer MEDICARE ==
[2019-12-09 13:25] VITALS: BP 128/74; PULSE 80; RESP 16; TEMP 98.5; BMI 25.4
--- NOTE | 2019-12-09 14:36 | P.HPBAR ---
Bariatric H&P - History & Physicial H&P Date: 12/09/19 History & Physicial: Visit/CC: sleeve f/u Patient initial contact: Initial weight: 101.469 kg Initial weight in pounds: 223.70 Height: 5 ft Initial BMI: 43.7 Last weight: Current weight: 58.967 kg Current weight in pounds: 130.00 Current BMI: 25.4 [place] body weight (based on NIH guidelines): 45.359 kg Excess body weight loss: 75.7% The patient is a 54 year-old F who presents for Bariatric Assessment. Patient resents today for sleeve gastrectomy follow-up. Her weight has been roughly stable. She's had some mild GERD. Past Medical History Past Medical History: Asthma, Diabetes Mellitus, Eye Disorder, Fibromyalgia, GERD/Reflux, Hyperlipidemia, Hypertension Additional Past Medical History / Comment(s): Mild intermittent bronchial asthma, obesity, VSD, cardiomyopathy, pacer/AICD in place, diabetes mellitus, diabetic retinopathy, diabetic gastroparesis, diabetic peripheral neuropathy, history of genital herpes, RLS, chronic back pain with degenerative disc disease involving L5 and S1 in addition to cervical disc disease involving C4 and C5, difficulty with mobility and the patient uses a walker/motorized scooter for longer distances. Hyperlipidemia, hypertension, fibromyalgia, acid reflux History of Any Multi-Drug Resistant Organisms: None Reported Past Surgical History: AICD, Appendectomy, Bariatric Surgery, Heart Catheterization, Orthopedic Surgery, Pacemaker, Tonsillectomy Additional Past Surgical History / Comment(s): Sinus surgery with correction of a deviated nasal septum, pacer/AICD placement, bilateral eye surgery with vitrectomy, treatment of a wound in the left foot and diabetic foot ulcer, history of I&D of an axillary staphylococcal infection, PICC line insertion and removal, shoulder surgery for a frozen shoulder, colonoscopy, VSD repair at age of ,sleeve gastrectomy 2-20-19 Past Anesthesia/Blood Transfusion Reactions: Previous Problems w/ Anesthesia Additional Past Anesthesia/Blood Transfusion Reaction / Comm: pt states she wakes up "slow and emotional-CRIES". Type of Cardiac Device: Permanent Pacemaker, AICD Device Placement Date:: 08/04/2016 [employer]. Past Psychological History: Anxiety, Depression Additional Psychological History / Comment(s): . Smoking Status: Never smoker Past Alcohol Use History: Rare Additional Past Alcohol Use History / Comment(s): Patient is a lifelong nonsmoker. She denies any illicit drug use, alcohol abuse. Past Drug Use History: None Reported - Past Family History Mother Family Medical History: Cancer, COPD Additional Family Medical History / Comment(s): lung cancer at age 73 Father Family Medical History: AICD/Pacemaker, Coronary Artery Disease (CAD), Diabetes Mellitus, Hypertension, Myocardial Infarction ([place]) Additional Family Medical History / Comment(s): [place] @ AGE 43 @ AGE 62 Brother(s) Family Medical History: Myocardial Infarction ([place]) Additional Family Medical History / Comment(s): HX [place] X 3 -1ST ONE @ AGE 39 Surgical - Exam Vital Signs Temp Pulse Resp BP 98.5 F 80 16 128/74 12/09/19 13:22 12/09/19 13:22 12/09/19 13:22 12/09/19 13:22 - General well developed, well nourished, no distress - Eyes PERRL - Neck no masses - Respiratory normal expansion - Cardiovascular Rhythm: regular - Abdomen Abdomen: soft, non tender Bariatric Assessment & Plan Plan: Status post sleeve history. Patient is doing quite well. Her GERD is minimal will be observed. Bariatric Checklist Checklist: Plan: Checklist: EGD: 1. Hiatal hernia: 2. H. Pylori: HgbA1c: Vitamin D: Smoking: Never smoker Primary care physician referral: Dr. Shai Vann ([place]) Psychiatry clearance: Cardiology clearance: Sleep study: Diet journal: VTE risk score: VTE risk level: Rehab needs at discharge:
== END | disposition home or self-care (01) ==
LOC: BARWHC3 12:53
PROVIDERS: ATTEND Surgery
DX: Z48.815 Encounter for surgical aftercare following surgery on the digestive system (principal); Z98.84 Bariatric surgery status; Z90.89 Acquired absence of other organs
CPT/HCPCS: 99211

== ENCOUNTER → 2020-03-09 | Outpatient (CLI) | payer MEDICARE ==
[2020-03-09 13:20] VITALS: BP 116/72; PULSE 73; RESP 18; TEMP 98
[2020-03-09 15:00] LABS: HCT 37.3 % (34.0-46.0); HGB 12.6 gm/dL (11.4-16.0); MCH 31.1 pg (25.0-35.0); MCHC 33.7 g/dL (31.0-37.0); MCV 92.4 fL (80.0-100.0); Mean Platelet Volume 7.5; Platelet Count 177 k/uL (150-450); RBC 4.04 m/uL (3.80-5.40); RDW 13.6 % (11.5-15.5); WBC 6.7 k/uL (3.8-10.6)
[2020-03-09 20:33] LABS: African American GFR (CKD) 120.6 (60.0-200.0); Albumin 4.1 g/dL (3.80-4.90); Albumin/Globulin Ratio 1.95 (1.60-3.17); Anion Gap 2.5 mmol/L (4.00-12.00); Carbon Dioxide 32.5 mmol/L (21.6-31.8); Globulin 2.1 g/dL (1.6-3.3); Non-African American GFR(CKD) 104.1 (60.0-200.0); Potassium 4.7 mmol/L (3.5-5.5); Total Bilirubin 0.5 mg/dL (0.3-1.2); Total Protein 6.2 g/dL (6.2-8.2)
[2020-03-09 21:30] LABS: Folate, Serum 14.8 ng/mL
--- NOTE | 2020-03-10 10:27 | P.HPBAR ---
Bariatric H&P - History & Physicial H&P Date: 03/09/20 History & Physicial: Visit/CC: follow up Patient initial contact: Initial weight: 101.469 kg Initial weight in pounds: 223.70 Height: 5 ft Initial BMI: Last weight: Current weight: 55.792 kg Current weight in pounds: Current BMI: [place] body weight (based on NIH guidelines): Excess body weight loss: The patient is a 54 year-old F who presents for Bariatric Assessment. Patient presents today for bariatric follow-up. She is doing well. She's had some minimal GERD. Past Medical History Past Medical History: Asthma, Diabetes Mellitus, Eye Disorder, Fibromyalgia, GERD/Reflux, Hyperlipidemia, Hypertension Additional Past Medical History / Comment(s): Mild intermittent bronchial asthma, obesity, VSD, cardiomyopathy, pacer/AICD in place, diabetes mellitus, diabetic retinopathy, diabetic gastroparesis, diabetic peripheral neuropathy, history of genital herpes, RLS, chronic back pain with degenerative disc disease involving L5 and S1 in addition to cervical disc disease involving C4 and C5, difficulty with mobility and the patient uses a walker/motorized scooter for longer distances. Hyperlipidemia, hypertension, fibromyalgia, acid reflux History of Any Multi-Drug Resistant Organisms: None Reported Past Surgical History: AICD, Appendectomy, Bariatric Surgery, Heart Catheterization, Orthopedic Surgery, Pacemaker, Tonsillectomy Additional Past Surgical History / Comment(s): Sinus surgery with correction of a deviated nasal septum, pacer/AICD placement, bilateral eye surgery with vitrectomy, treatment of a wound in the left foot and diabetic foot ulcer, history of I&D of an axillary staphylococcal infection, PICC line insertion and removal, shoulder surgery for a frozen shoulder, colonoscopy, VSD repair at age of ,sleeve gastrectomy 2-20-19 Past Anesthesia/Blood Transfusion Reactions: Previous Problems w/ Anesthesia Additional Past Anesthesia/Blood Transfusion Reaction / Comm: pt states she wakes up "slow and emotional-CRIES". Type of Cardiac Device: Permanent Pacemaker, AICD Device Placement Date:: 08/04/2016 [employer]. Past Psychological History: Anxiety, Depression Additional Psychological History / Comment(s): . Smoking Status: Never smoker Past Alcohol Use History: Rare Additional Past Alcohol Use History / Comment(s): Patient is a lifelong nonsmoker. She denies any illicit drug use, alcohol abuse. Past Drug Use History: None Reported - Past Family History Mother Family Medical History: Cancer, COPD Additional Family Medical History / Comment(s): lung cancer at age 73 Father Family Medical History: AICD/Pacemaker, Coronary Artery Disease (CAD), Diabetes Mellitus, Hypertension, Myocardial Infarction ([place]) Additional Family Medical History / Comment(s): [place] @ AGE 43 @ AGE 62 Brother(s) Family Medical History: Myocardial Infarction ([place]) Additional Family Medical History / Comment(s): HX [place] X 3 -1ST ONE @ AGE 39 Surgical - Exam Vital Signs Temp Pulse Resp BP 98 F 73 18 116/72 03/09/20 13:14 03/09/20 13:14 03/09/20 13:14 03/09/20 13:14 - General well developed, well nourished, no distress - Eyes PERRL - ENT normal pinna - Neck no masses - Respiratory normal expansion - Abdomen Abdomen: soft, non tender Results - Labs 03/09/20 14:15 03/09/20 14:15 Abnormal Lab Results - Last 24 Hours (Table) 03/09/20 Range/Units 14:15 Carbon Dioxide 32.5 H (21.6-31.8) mmol/L Anion Gap 2.50 L (4.00-12.00) mmol/L BUN/Creatinine Ratio 35.00 H (12.00-20.00) Ratio Diabetes panel 03/09/20 Range/Units 14:15 Sodium 141 (135-145) mmol/L Potassium 4.7 (3.5-5.5) mmol/L Chloride 106 (96-109) mmol/L Carbon Dioxide 32.5 H (21.6-31.8) mmol/L BUN 21.0 (9.0-27.0) mg/dL Creatinine 0.6 (0.6-1.5) mg/dL Glucose 109 (70-110) mg/dL Calcium 9.0 (8.7-10.3) mg/dL AST 21 (13-35) U/L ALT 16 (8-44) U/L Alkaline Phosphatase 96 (41-126) U/L Total Protein 6.2 (6.2-8.2) g/dL Albumin 4.10 (3.80-4.90) g/dL Thyroid panel 03/09/20 Range/Units 14:15 TSH 1.830 (0.350-5.500) uIU/mL Calcium panel 03/09/20 Range/Units 14:15 Calcium 9.0 (8.7-10.3) mg/dL Albumin 4.10 (3.80-4.90) g/dL Pituitary panel 03/09/20 Range/Units 14:15 Sodium 141 (135-145) mmol/L Potassium 4.7 (3.5-5.5) mmol/L Chloride 106 (96-109) mmol/L Carbon Dioxide 32.5 H (21.6-31.8) mmol/L BUN 21.0 (9.0-27.0) mg/dL Creatinine 0.6 (0.6-1.5) mg/dL Glucose 109 (70-110) mg/dL Calcium 9.0 (8.7-10.3) mg/dL TSH 1.830 (0.350-5.500) uIU/mL Adrenal panel 03/09/20 Range/Units 14:15 Sodium 141 (135-145) mmol/L Potassium 4.7 (3.5-5.5) mmol/L Chloride 106 (96-109) mmol/L Carbon Dioxide 32.5 H (21.6-31.8) mmol/L BUN 21.0 (9.0-27.0) mg/dL Creatinine 0.6 (0.6-1.5) mg/dL Glucose 109 (70-110) mg/dL Calcium 9.0 (8.7-10.3) mg/dL Total Bilirubin 0.5 (0.3-1.2) mg/dL AST 21 (13-35) U/L ALT 16 (8-44) U/L Alkaline Phosphatase 96 (41-126) U/L Total Protein 6.2 (6.2-8.2) g/dL Albumin 4.10 (3.80-4.90) g/dL Bariatric Assessment & Plan Plan: Resolving morbid obesity. Patient's BMI is 24. Her GERD is minimal will be observed. She'll follow-up in 8 weeks. Bariatric Checklist Checklist: Plan: Checklist: EGD: 1. Hiatal hernia: 2. H. Pylori: HgbA1c: Vitamin D: Smoking: Never smoker Primary care physician referral: Dr. Shai Vann ([place]) Psychiatry clearance: Cardiology clearance: Sleep study: Diet journal: VTE risk score: VTE risk level: Rehab needs at discharge:
== END | disposition home or self-care (01) ==
LOC: BARWHC3 12:53
PROVIDERS: ATTEND Surgery
DX: Z48.815 Encounter for surgical aftercare following surgery on the digestive system (principal); E66.01 Morbid (severe) obesity due to excess calories; Z68.24 Body mass index [BMI] 24.0-24.9, adult; K21.9 Gastro-esophageal reflux disease without esophagitis; Z98.84 Bariatric surgery status; Z98.890 Other specified postprocedural states
CPT/HCPCS: 84425; 80053; 82607; 82746; 84443; 85027; 82306; G0463; 99211

== ENCOUNTER → 2020-04-30 | Outpatient (CLI) | payer MEDICARE ==
--- NOTE | 2020-04-30 14:24 | MM ---
Reason for exam: screening (asymptomatic). Last mammogram was performed 9 years and 9 months ago. History: Patient is postmenopausal. Took hormonal contraceptives for 13 years. Physical Findings: A clinical breast exam by your physician is recommended on an annual basis and results should be correlated with mammographic findings. MG 3D Screening Mammo W/Cad Bilateral CC and MLO view(s) were taken. Prior study comparison: July 20, 2010, bilateral digital screening mammo w/CAD. The breast tissue is heterogeneously dense. This may lower the sensitivity of mammography. There are benign appearing round, vascular calcifications bilaterally. There is no new dominant lesion. Asymmetric breast tissue right upper breast, stable. Left axillary pacemaker redemonstrated. Increase in number of calcifications when compared with previous exams. ASSESSMENT: Benign, BI-RAD 2 RECOMMENDATION: Routine screening mammogram of both breasts in 1 year.
== END ==
LOC: RADMAMWWP 10:14
PROVIDERS: ATTEND Family Medicine
DX: Z12.31 Encounter for screening mammogram for malignant neoplasm of breast (principal); Z78.0 Asymptomatic menopausal state
CPT/HCPCS: 77063; 77067

== ENCOUNTER → 2020-10-12 | Outpatient (CLI) | payer MEDICARE ==
[2020-10-12 13:12] VITALS: BP 136/83; PULSE 74; RESP 18; TEMP 98; BMI 25.5
[2020-10-12 14:13] LABS: HCT 37.7 % (34.0-46.0); HGB 12.1 gm/dL (11.4-16.0); MCH 30.8 pg (25.0-35.0); MCHC 32.2 g/dL (31.0-37.0); MCV 95.8 fL (80.0-100.0); Mean Platelet Volume 8.2; Platelet Count 220 k/uL (150-450); RBC 3.94 m/uL (3.80-5.40); RDW 13.2 % (11.5-15.5); WBC 9.6 k/uL (3.8-10.6)
--- NOTE | 2020-10-12 15:45 | P.HPBAR ---
Bariatric H&P - History & Physicial H&P Date: 10/12/20 History & Physicial: Visit/CC: follow up Patient initial contact: Initial weight: 101.469 kg Initial weight in pounds: 223.70 Height: 5 ft Initial BMI: 43.7 Last weight: Current weight: 59.421 kg Current weight in pounds: 131.00 Current BMI: 25.5 [place] body weight (based on NIH guidelines): 45.359 kg Excess body weight loss: 74.9% The patient is a 55 year-old F who presents for Bariatric Assessment. Patient presents today for sleeve gastrectomy fall. She's had some mild GERD. She's doing well otherwise. Past Medical History Past Medical History: Asthma, Diabetes Mellitus, Eye Disorder, Fibromyalgia, GERD/Reflux, Hyperlipidemia, Hypertension Additional Past Medical History / Comment(s): Mild intermittent bronchial asthma, obesity, VSD, cardiomyopathy, pacer/AICD in place, diabetes mellitus, diabetic retinopathy, diabetic gastroparesis, diabetic peripheral neuropathy, history of genital herpes, RLS, chronic back pain with degenerative disc disease involving L5 and S1 in addition to cervical disc disease involving C4 and C5, difficulty with mobility and the patient uses a walker/motorized scooter for longer distances. Hyperlipidemia, hypertension, fibromyalgia, acid reflux History of Any Multi-Drug Resistant Organisms: None Reported Past Surgical History: AICD, Appendectomy, Bariatric Surgery, Heart Catheterization, Orthopedic Surgery, Pacemaker, Tonsillectomy Additional Past Surgical History / Comment(s): Sinus surgery with correction of a deviated nasal septum, pacer/AICD placement, bilateral eye surgery with vitrectomy, treatment of a wound in the left foot and diabetic foot ulcer, history of I&D of an axillary staphylococcal infection, PICC line insertion and removal, shoulder surgery for a frozen shoulder, colonoscopy, VSD repair at age of ,sleeve gastrectomy 2-20-19 Past Anesthesia/Blood Transfusion Reactions: Previous Problems w/ Anesthesia Additional Past Anesthesia/Blood Transfusion Reaction / Comm: pt states she wakes up "slow and emotional-CRIES". Type of Cardiac Device: Permanent Pacemaker, AICD Device Placement Date:: 08/04/2016 [employer]. Past Psychological History: Anxiety, Depression Additional Psychological History / Comment(s): . Smoking Status: Never smoker Past Alcohol Use History: Rare Additional Past Alcohol Use History / Comment(s): Patient is a lifelong nonsmoker. She denies any illicit drug use, alcohol abuse. Past Drug Use History: None Reported - Past Family History Mother Family Medical History: Cancer, COPD Additional Family Medical History / Comment(s): lung cancer at age 73 Father Family Medical History: AICD/Pacemaker, Coronary Artery Disease (CAD), Diabetes Mellitus, Hypertension, Myocardial Infarction ([place]) Additional Family Medical History / Comment(s): [place] @ AGE 43 @ AGE 62 Brother(s) Family Medical History: Myocardial Infarction ([place]) Additional Family Medical History / Comment(s): HX [place] X 3 -1ST ONE @ AGE 39 Surgical - Exam Vital Signs Temp Pulse Resp BP 98 F 74 18 136/83 10/12/20 13:03 10/12/20 13:03 10/12/20 13:03 10/12/20 13:03 - General well developed, well nourished, no distress - Eyes PERRL - ENT normal pinna - Neck no masses - Respiratory normal expansion - Cardiovascular Rhythm: regular - Abdomen Abdomen: soft, non tender Results - Labs 10/12/20 13:50 Bariatric Assessment & Plan Plan: Status post sleeve gastrectomy. Patient is minimal will be observed. She'll follow-up 3 months. Bariatric Checklist Checklist: Plan: Checklist: EGD: 1. Hiatal hernia: 2. H. Pylori: HgbA1c: Vitamin D: Smoking: Never smoker Primary care physician referral: Dr. Shai Vann ([place]) Psychiatry clearance: Cardiology clearance: Sleep study: Diet journal: VTE risk score: VTE risk level: Rehab needs at discharge:
[2020-10-12 19:32] LABS: % Iron Saturation 18.75 (12.00-45.00); African American GFR (CKD) 113.8 (60.0-200.0); Albumin 4.2 g/dL (3.80-4.90); Albumin/Globulin Ratio 1.5 (1.60-3.17); Anion Gap 5.4 mmol/L (4.00-12.00); BUN/Creat Ratio 24.29 Ratio (12.00-20.00); Carbon Dioxide 31.6 mmol/L (21.6-31.8); Globulin 2.8 g/dL (1.6-3.3); Magnesium 1.9 mg/dL (1.5-2.4); Non-African American GFR(CKD) 98.2 (60.0-200.0); Potassium 4.9 mmol/L (3.5-5.5); Total Bilirubin 0.5 mg/dL (0.2-1.2)
[2020-10-12 19:40] LABS: Ferritin 93.4 ng/mL (10.0-291.0)
[2020-10-12 19:45] LABS: Folate, Serum 17.4 ng/mL
[2020-10-13 12:14] LABS: Zinc, Serum 64 ug/dL (60-130)
== END ==
LOC: BARWHC3 12:49
PROVIDERS: ATTEND Surgery
DX: Z09 Encounter for follow-up examination after completed treatment for conditions other than malignant neoplasm (principal); K21.9 Gastro-esophageal reflux disease without esophagitis; J45.909 Unspecified asthma, uncomplicated; E78.5 Hyperlipidemia, unspecified; I10 Essential (primary) hypertension; E11.319 Type 2 diabetes mellitus with unspecified diabetic retinopathy without macular edema; E11.43 Type 2 diabetes mellitus with diabetic autonomic (poly)neuropathy; E11.40 Type 2 diabetes mellitus with diabetic neuropathy, unspecified; F41.9 Anxiety disorder, unspecified; F32.9 Major depressive disorder, single episode, unspecified; Z98.84 Bariatric surgery status; Z88.6 Allergy status to analgesic agent; Z88.8 Allergy status to other drugs, medicaments and biological substances; Z91.041 Radiographic dye allergy status
CPT/HCPCS: 84255; 84425; 80053; 82607; 82728; 82746; 83540; 83550; 83735; 84443; 84590; 84630; 85027; 82306; G0463; 99211

== ENCOUNTER → 2022-06-17 | Outpatient (CLI) | payer MEDICARE ==
[2022-06-17 15:24] LABS: African American GFR (CKD) >90 (>60 ml/min/1.73 sqM); Blood Urea Nitrogen 17 mg/dL (7-17); Non-African American GFR(CKD) 84 (>60 ml/min/1.73 sqM)
--- NOTE | 2022-06-17 17:03 | CT ---
EXAMINATION TYPE: CT angio head neck CT DLP: 334.5 mGycm, Automated exposure control for dose reduction was used. DATE OF EXAM: 06/17/2022 4:35 PM COMPARISON: CT Angio chest 03/30/2016. CLINICAL INDICATION:Female, 56 years old with history of H93.19 I67.89; , Pt c/o of whooshing sound i n Rt ear x3mo. Hx of tinnitus TECHNIQUE: Axially acquired helical CT angiogram of the head and neck was obtained with contrast. Axi al images are supplemented with 3D reconstructions which [facility] NASCET criteria used. Contrast used:65cc mL of Isovue 370 with IV Contrast, Oral contrast used: None. FINDINGS: CTA HEAD: No evidence of acute intracranial hemorrhage, mass effect, or midline shift. The ventricles, sulci, a nd cisterns are unremarkable. The visualized portions of the internal carotid arteries, middle cerebral arteries, anterior cerebral arteries, and posterior cerebral arteries are patent. The basilar and vertebral arteries are patent. CTA NECK: Right Carotid System: The common carotid and external carotid arteries are patent. There is approximately 25% stenosis at t he carotid bifurcation secondary to calcified/noncalcified plaquing. The rest of the internal carotid artery is patent. Left Carotid System: The common carotid and external carotid arteries are patent. There is approximately 25% stenosis at t he carotid bifurcation secondary to calcified/noncalcified plaquing. The rest of the internal carotid artery is patent. Vertebral arteries are patent without evidence hemodynamically significant stenosis. The left verteb ral artery is dominant. There is a three-vessel aortic arch. The origins of the great vessels are patent. No evidence of hemo dynamically significant stenosis. Upper thorax: Left. Conduction device leads terminating in the heart. There is filling defect within the left upper extremity venous vasculature with multiple collaterals around the thorax. IMPRESSION: 1. No evidence of dissection of the cervical internal carotid arteries or vertebral arteries or any e vidence of significant stenosis at the carotid bifurcations. 2. No evidence of intracranial high-grade stenosis or intracranial aneurysm. 3. Suspected left upper extremity deep vein thrombosis with subsequent multiple collaterals. This is felt to be due to the cardiac conduction leads insertion into the venous structures. Further evaluati on by ultrasound is recommended.
== END | disposition home or self-care (01) ==
LOC: RADCTMAIN 14:31
PROVIDERS: ATTEND Otolaryngology
DX: H93.A1 Pulsatile tinnitus, right ear (principal); I67.89 Other cerebrovascular disease
CPT/HCPCS: 82565; 84520; 70496; 70498; 36415; Q9967

== ENCOUNTER → 2022-12-05 | Outpatient (CLI) | payer MEDICARE ==
--- NOTE | 2022-12-05 14:57 | MM ---
Reason for Exam: Clinical finding. Last screening mammogram was performed 7 month(s) ago. Patient History: Menarche at age 13. First Full-Term at age 25. Postmenopausal. Patient used Hormonal Contraceptives for 13 years. Risk Values: [place] 5 year model risk: 1.1%. NCI Lifetime model risk: 7.2%. Prior Study Comparison: 07/20/2010 Bilateral Screening Mammogram, [facility]. 04/30/2020 Bilateral Screening Mammogram, [facility] 04/27/2022 Bilateral MG 3D screening mammo w/cad, [facility]. Tissue Density: Right: There are scattered fibroglandular densities. Findings: Analyzed By CAD. Calcifications are near the marker in the right breast. No organizing fluid collection or mass effect within the visualized. No new suspicious masses, calcifications or distortions. Overall Assessment: Incomplete: need additional imaging evaluation, BI-RAD 0 Management: Diagnostic Breast Ultrasound of the right breast. Results were given to the patient verbally at the time of exam. Patient should continue monthly self-breast exams. A clinical breast exam by your physician is recommended on an annual basis. This exam should not preclude additional follow-up of suspicious palpable abnormalities. Note on Nanette scores and lifetime risk: 1. A [place]ette score greater than 3% is considered moderate risk. If this is the case, consider specialist referral to assess eligibility for a risk reducing agent. 2. If overall lifetime risk for the development of breast cancer is 20% or higher, the patient may qualify for future screening with alternating mammogram and breast MRI. Electronically signed and approved by: Nikunj Rossi DO
--- NOTE | 2022-12-05 15:14 | USB ---
Reason for Exam: Clinical finding. Patient History: Menarche at age 13. First Full-Term at age 25. Postmenopausal. Patient used Hormonal Contraceptives for 13 years. Risk Values: [place] 5 year model risk: 1.1%. NCI Lifetime model risk: 7.2%. Technique: Method: Targeted. Prior Study Comparison: 07/20/2010 Bilateral Screening Mammogram, [facility]. 04/30/2020 Bilateral Screening Mammogram, [facility]. 04/27/2022 Bilateral MG 3D screening mammo w/cad, [facility]. Findings: The upper outer quadrant of the right breast, the area of palpable concern of the right breast and the retroareolar of the right breast were scanned. Targeted ultrasound of the right breast from 9-12 o'clock with additional evaluation of the nipple was performed. There is a simple anechoic cyst with trace posterior acoustic enhancement and no internal color flow within the right breast at 11:00 8 cm from the nipple measuring 5 x 3 x 4 mm. Overall Assessment: Benign, BI-RAD 2 Management: Screening Mammogram of both breasts in 1 year. A clinical breast exam by your physician is recommended on an annual basis and results should be correlated with mammographic findings. This exam should not preclude additional follow-up of suspicious palpable abnormalities. Results were given to the patient verbally at the time of exam. Electronically signed and approved by: Javi Rhodes D.O.
== END | disposition home or self-care (01) ==
LOC: RADMAMWWP 14:27
PROVIDERS: ATTEND Family Medicine
DX: N63.12 Unspecified lump in the right breast, upper inner quadrant (principal); Z78.0 Asymptomatic menopausal state
CPT/HCPCS: 77065; 76642; G0279; 77061

== ENCOUNTER 2024-02-05 05:56 | Day surgery (SDC) | payer MEDICARE ==
[2024-02-05] MEDS ORDERED: LACTATED RINGERS 1,000 ML IV SCH (06:03)
[2024-02-05] MEDS: SODIUM CHLORIDE 0.9% 500 ML 500 ML IV SCH (06:54)
[2024-02-05] MEDS: LACTATED RINGERS 1,000 ML IV ONE (06:54)
[2024-02-05 07:09] LABS: Glucose,Whole Blood 119 mg/dL (70-110)
[2024-02-05] MEDS ORDERED: FLUMAZENIL 0.1 MG/ML 5 ML VIAL IVP ONE (07:24)
[2024-02-05] MEDS ORDERED: PROPOFOL 10 MG/ML 20 ML VIAL IV ONE (07:24)
[2024-02-05] MEDS ORDERED: LIDOCAINE 1% INJ 10MG/ML (20 ML MDV) ONE (07:24)
[2024-02-05] MEDS ORDERED: PHENYLEPHRINE 10 MG/ML VIAL ONE (07:24)
[2024-02-05] MEDS ORDERED: MIDAZOLAM 2 MG/2 ML VIAL ONE (07:24)
[2024-02-05] MEDS: BENZOCAINE SPRAY 1 EACH MM ONE (07:27)
[2024-02-05] MEDS ORDERED: traMADol 50 MG TAB PO PRN (07:49)
--- NOTE | 2024-02-05 07:53 | P.PCN ---
Date of Procedure: 02/05/24 Description of Procedure: Indication: Atrial fibrillation Procedure Description: After explaining the procedure to the patient, it's risk and complications, blood pressure, heart rate and O2 saturation were monitored. The throat was sprayed with Cetacaine. Patient received sedation per anesthesia department. The probe was introduced into the esophagus without difficulty. Images were obtained. Following that, the probe was removed. There was no immediate complication. Findings: Left atrial size is dilated, left atrial appendage is normal. The left ventricle is dilated with global hypokinesis and ejection fraction of 30 to 35%. The aortic valve, mitral valve and tricuspid valve are normal. The pulmonic valve is normal. A wire was noted in the right ventricle. Descending thoracic aorta appears to be normal. No pericardial effusion was noted. Contrast bubble study revealed evidence of [id number] shunting with patent foramen ovale. Doppler: Pulse wave and color Doppler were obtained, and revealed mild mitral with severe tricuspid regurgitation. There was no shunting by color Doppler study. Conclusion: 1. Dilated left atrium with normal appearance of the left atrial appendage 2. Severe global hypokinesis of the left ventricle with dilated left ventricle 3. Severe tricuspid regurgitation with mild mitral regurgitation 4. Patent foramen ovale by contrast bubble study with [id number] shunting 5. Wire was noted in the right ventricle 6. Normal appearance of the descending thoracic aorta Cardioversion: After obtaining DEVON and sedated state synchronized biphasic cardioversion using 150 J was successful in restoring sinus mechanism. There was no immediate complications.
[2024-02-05 07:55] LABS: African American GFR (CKD) >90 (>60 ml/min/1.73 sqM); Anion Gap 8 mmol/L; Blood Urea Nitrogen 14 mg/dL (7-17); Calcium 8.9 mg/dL (8.4-10.2); Carbon Dioxide 28 mmol/L (22-30); Chloride 105 mmol/L (98-107); Glucose 125 mg/dL (74-99); Non-African American GFR(CKD) >90 (>60 ml/min/1.73 sqM); Potassium 3.9 mmol/L (3.5-5.1); Sodium 141 mmol/L (137-145)
[2024-02-05] MEDS: IV FLUID CONTINUATION 1,000 ML IV ONE (08:08)
[2024-02-05 08:23] VITALS: RESP 16; TEMP 98
[2024-02-05 08:56] VITALS: BP 110/73; PULSE 76
[2024-02-05] MEDS ORDERED: APIXABAN 5 MG TAB PO SCH (09:00)
[2024-02-05] MEDS ORDERED: NON FORMULARY DRUG (Gabapentin [Gabapentin] 800 MG Tablet) PO SCH (09:00)
[2024-02-05] MEDS ORDERED: NON FORMULARY DRUG (Brimonidine Tartrate/Timolol [Combigan 0.2%-0.5% Eye Drops] 5 ML Drops BOTH EYES SCH (09:00)
[2024-02-05] MEDS ORDERED: CHOLECALCIFEROL 25 MCG (1000 IU) TABLET PO SCH (09:00)
[2024-02-05] MEDS ORDERED: DORZOLAMIDE HCL RIGHT EYE SCH (09:00)
[2024-02-05] MEDS ORDERED: ATORVASTATIN 20 MG TAB PO SCH (21:00)
[2024-02-05] MEDS ORDERED: DAPAGLIFLOZIN PROPANEDIOL 10 MG TABLET PO SCH (21:00)
[2024-02-05] MEDS ORDERED: NON FORMULARY DRUG (Omeprazole [Omeprazole] 40 MG Capsule.Dr) PO SCH (21:00)
[2024-02-05] MEDS ORDERED: ROPINIROLE HCL 2 MG PO SCH (21:00)
[2024-02-05] MEDS ORDERED: LATANOPROST 0.005% OPHTH DROPS 2.5 ML BTL BOTH EYES SCH (21:00)
[2024-02-05] MEDS ORDERED: METOPROLOL SUCCINATE (ER) 25 MG TAB.ER.24H PO SCH (21:00)
[2024-02-05] MEDS ORDERED: RAMIPRIL 5 MG PO SCH (21:00)
[2024-02-06] MEDS ORDERED: NON FORMULARY DRUG (Vitamin B Complex [Vitamin B Complex] 1 EACH Capsule) PO SCH (07:49)
[2024-02-09] MEDS ORDERED: NON FORMULARY DRUG (Tirzepatide [Mounjaro] 5 MG/0.5 ML Pen.Injctr) SQ SCH (07:49)
== END 2024-02-05 09:17 | disposition home or self-care (01) ==
LOC: OR 05:56
PROVIDERS: ATTEND Internal Medicine Interventional Cardiology
DX: I08.1 Rheumatic disorders of both mitral and tricuspid valves (principal); I48.91 Unspecified atrial fibrillation; I10 Essential (primary) hypertension; E78.5 Hyperlipidemia, unspecified; K21.9 Gastro-esophageal reflux disease without esophagitis; Q21.0 Ventricular septal defect; J45.909 Unspecified asthma, uncomplicated; E11.40 Type 2 diabetes mellitus with diabetic neuropathy, unspecified; M19.90 Unspecified osteoarthritis, unspecified site; F32.A Depression, unspecified; F41.9 Anxiety disorder, unspecified; M79.7 Fibromyalgia; G25.81 Restless legs syndrome; Z95.2 Presence of prosthetic heart valve; Z88.6 Allergy status to analgesic agent; Z91.041 Radiographic dye allergy status; Z79.84 Long term (current) use of oral hypoglycemic drugs; Z79.899 Other long term (current) drug therapy; Z79.811 Long term (current) use of aromatase inhibitors; Z79.891 Long term (current) use of opiate analgesic; Z90.3 Acquired absence of stomach [part of]
CPT/HCPCS: 93312; 93320; 93325; 92960; 80048; J2250; J2003; J2704; J2371

== ENCOUNTER → 2024-07-01 | Outpatient (CLI) | payer MEDICARE ==
[2024-07-01 15:33] LABS: Blood Urea Nitrogen 17.8 mg/dL (9.0-27.0); Carbon Dioxide 25.6 mmol/L (21.6-31.8); Chloride 104 mmol/L (96-109); Potassium 4.3 mmol/L (3.5-5.5); Sodium 140 mmol/L (135-145)
[2024-07-01 15:44] LABS: HCT 38.7 % (37.2-46.3); MCH 29.1 pg (27.0-32.0); MCV 93.7 FL (80.0-97.0); Mean Platelet Volume 11.4 FL (9.5-12.2); NRBC Per 100 WBC 0 X 10*3/uL (0.00-0.01); Platelet Count 177 X 10*3/uL (140-440); RBC 4.13 X 10*6/uL (4.10-5.20); RDW 13.8 % (11.5-14.5); WBC 7.97 X 10*3/uL (4.50-10.00)
== END | disposition home or self-care (01) ==
LOC: LABPAT 12:31
PROVIDERS: ATTEND Internal Medicine Clinical Cardiac Electrophysiology
DX: Z01.812 Encounter for preprocedural laboratory examination (principal); I47.19 Other supraventricular tachycardia
CPT/HCPCS: 80051; 82565; 84520; 85027

== ENCOUNTER 2024-07-08 05:48 | Day surgery (SDC) | payer MEDICARE ==
[2024-07-04 08:59] VITALS: BMI 24.7
[2024-07-08] MEDS: IV FLUID CONTINUATION 1,000 ML IV ONE (06:05)
[2024-07-08 06:36] LABS: Basophils % (A) 1.3 %; Eosinophils # (A) 0.15 10*3/uL (0.04-0.35); HCT 39.6 % (37.2-46.3); HGB 12.8 g/dL (12.0-15.0); Lymphocytes # (A) 2.79 10*3/uL (0.90-5.00); Lymphocytes % (A) 36.5 %; MCH 29.8 pg (27.0-32.0); MCHC 32.3 g/dL (32.0-37.0); MCV 92.3 fL (80.0-97.0); Mean Platelet Volume 10.5 fL (9.5-12.2); Monocytes # (A) 0.63 10*3/uL (0.20-1.00); Monocytes % (A) 8.2 %; Neutrophils # (A) 3.96 10*3/uL (1.80-7.70); Neutrophils % (A) 51.9 %; Platelet Count 166 10*3/uL (140-440); RBC 4.29 10*6/uL (4.10-5.20); RDW 13.8 % (11.5-14.5); WBC 7.64 10*3/uL (4.50-10.00)
[2024-07-08] MEDS: SODIUM CHLORIDE 0.9% 1,000 ML IV SCH (06:41)
[2024-07-08 06:56] LABS: ALT 12 U/L (4-34); AST 21 U/L (14-36); African American GFR (CKD) 71 (>60 ml/min/1.73 sqM); Albumin 4.4 g/dL (3.5-5.0); Alkaline Phosphatase 60 U/L (38-126); Anion Gap 11 mmol/L; Blood Urea Nitrogen 20 mg/dL (7-17); Calcium 9.3 mg/dL (8.4-10.2); Carbon Dioxide 30 mmol/L (22-30); Chloride 100 mmol/L (98-107); Glucose 128 mg/dL (74-99); Non-African American GFR(CKD) 62 (>60 ml/min/1.73 sqM); Potassium 3.6 mmol/L (3.5-5.1); Sodium 141 mmol/L (137-145); Total Bilirubin 0.9 mg/dL (0.2-1.3); Total Protein 7.3 g/dL (6.3-8.2)
[2024-07-08] MEDS ORDERED: DEXAMETHASONE SOD PHOSPHATE 4 MG/ML 1 ML VIAL ONE (07:36)
[2024-07-08] MEDS ORDERED: PROPOFOL 10 MG/ML 20 ML VIAL IV ONE (07:36)
[2024-07-08] MEDS ORDERED: fentaNYL (PF) 50 MCG/ML 50 ML VIAL ONE (07:36)
[2024-07-08] MEDS ORDERED: PHENYLEPHRINE 10 MG/ML VIAL ONE (07:36)
[2024-07-08] MEDS ORDERED: MIDAZOLAM 2 MG/2 ML VIAL ONE (07:36)
[2024-07-08] MEDS ORDERED: ISOPROTERENOL 250 MCG/1.25 ML SYR IV ONE (07:36)
[2024-07-08] MEDS ORDERED: ONDANSETRON 4 MG/2 ML VIAL ONE (07:36)
[2024-07-08] MEDS ORDERED: SUCCINYLCHOLINE CHLORIDE 200 MG/10 ML VIAL IV ONE (07:36)
[2024-07-08] MEDS ORDERED: LIDOCAINE 1% INJ 10MG/ML (20 ML MDV) ONE (07:36)
[2024-07-08 08:01] LABS: T4, Free (Free Thyroxine) 1.28 ng/dL (0.78-2.19)
--- NOTE | 2024-07-08 08:02 | P.HPCAR ---
History of Present Illness This is Dr. Glynn dictating an H/P on this patient The patient was interviewed and examined IMPRESSION / ASSESSMENT: Chronic recurrent atrial tachycardia Recurrent atrial flutter, typical Known cardiomyopathy ejection fraction 32% with congestive heart failure class II Complete heart block, dual-chamber ICD, 100% paced Symptoms of shortness of breath tiredness and lack of energy PLAN: Diagnostic EP study Atrial flutter ablation Ablation of any other inducible atrial tachycardias Bilateral upper extremity venography HPI Complains of being short of breath more so in the last 1 week. She also has palpitations and has had multiple different episodes of atrial tachycardia She has a dual-chamber ICD in situ Previously has had a laser lead extraction many years back She has known cardiomyopathy with an ejection fraction of 32% Previously had a twelve-lead EKGs during tachycardia have demonstrated different morphologies some which are consistent with typical atrial flutter others that are consistent with a right atrial tachycardia, possibly high right atrium ROS: No fever chills or rigors, no cough, phlegm or expectoration, no nausea, vomiting or diarrhea, no hematuria, dysuria, no musculoskeletal complaints, no strokes or seizures, no skin lesions. EXAMINATION: Blood pressure 105/67 mmHg pulse ox 99% afebrile normal respirations No JVD No lower extremity edema Heart sounds are normal no murmurs Clear lungs no rhonchi no crackles No orthopnea REVIEW OF LABS, ECG & MEDICAL DATA Normal white count, hemoglobin 12.8, platelet count 166,000 Normal electrolytes BUN 20 and creatinine 1.0 Liver functions normal TSH level is minimally elevated 5.2 Physical Exam Vitals: Vital Signs Temp Resp BP Pulse Ox 07/08/24 06:41 97.8 F 16 105/67 99 Intake and Output 07/07/24 07/08/24 07/08/24 22:59 06:59 14:59 Other: Weight 58.2 kg Past Medical History Past Medical History: Atrial Fibrillation, Asthma, Diabetes Mellitus, Eye Disor eder, Fibromyalgia, GERD/Reflux, Hyperlipidemia, Hypertension, Osteoarthritis (OA) Additional Past Medical History / Comment(s): cardiomyopathy, newer onset a-fib, diabetic retinopathy-currently stable, but does have glaucoma, diabetic peripheral neuropathy feet, history of genital herpes, RLS, chronic back pain with degenerative disc disease involving L5 and S1 in addition to cervical disc disease involving C4 and C5, Charcot foot History of Any Multi-Drug Resistant Organisms: None Reported Past Surgical History: AICD, Appendectomy, Bariatric Surgery, Heart Catheterization, Orthopedic Surgery, Pacemaker, Tonsillectomy Additional Past Surgical History / Comment(s): Sinus surgery with correction of a deviated nasal septum, pacer/AICD placement, bilateral eye surgery with vitrectomy, treatment of a wound in the left foot and diabetic foot ulcer, history of I&D of an axillary staphylococcal infection, PICC line insertion and removal, shoulder surgery for a frozen shoulder, colonoscopy, VSD repair at age of 3 y.o., sleeve gastrectomy 04-18-18, CARDIOVERSION 02/01/24 Past Anesthesia/Blood Transfusion Reactions: Previous Problems w/ Anesthesia Additional Past Anesthesia/Blood Transfusion Reaction / Comment(s): pt states she wakes up "slow and emotional-CRIES". Type of Cardiac Device: Permanent Pacemaker, AICD Device Placement Date:: 08/04/2016 [employer] [place]. Smoking Status: Never smoker - Past Family History Mother Family Medical History: Cancer, COPD Additional Family Medical History / Comment(s): lung cancer at age 73 Father Family Medical History: AICD/Pacemaker, Coronary Artery Disease (CAD), Diabetes Mellitus, Hypertension, Myocardial Infarction (RI) Additional Family Medical History / Comment(s): RI @ AGE 43 @ AGE 62 Brother(s) Family Medical History: Myocardial Infarction (RI) Additional Family Medical History / Comment(s): HX RI X 3 -1ST ONE @ AGE 39 Physical Examination Vital Signs Temp Resp BP Pulse Ox 07/08/24 06:41 97.8 F 16 105/67 99 Intake and Output 07/07/24 07/08/24 07/08/24 22:59 06:59 14:59 Other: Weight 58.2 kg Results 07/08/24 06:28 07/08/24 06:28 Cardiac Enzymes 07/08/24 Range/Units 06:28 AST 21 (14-36) U/L CBC 07/08/24 Range/Units 06:28 WBC 7.64 (4.50-10.00) 10*3/uL RBC 4.29 (4.10-5.20) 10*6/uL Hgb 12.8 (12.0-15.0) g/dL Hct 39.6 (37.2-46.3) % Plt Count 166 (140-440) 10*3/uL Comprehensive Metabolic Panel 07/08/24 Range/Units 06:28 Sodium 141 (137-145) mmol/L Potassium 3.6 (3.5-5.1) mmol/L Chloride 100 (98-107) mmol/L Carbon Dioxide 30 (22-30) mmol/L BUN 20 H (7-17) mg/dL Creatinine 1.02 (0.52-1.04) mg/dL Glucose 128 H (74-99) mg/dL Calcium 9.3 (8.4-10.2) mg/dL AST 21 (14-36) U/L ALT 12 (4-34) U/L Alkaline Phosphatase 60 (38-126) U/L Total Protein 7.3 (6.3-8.2) g/dL Albumin 4.4 (3.5-5.0) g/dL Current Medications Generic Name Dose Route Start Last Admin Trade Name Freq PRN Reason Stop Dose Admin Sodium Chloride 1,000 mls @ 20 mls/hr 07/08/24 05:40 07/08/24 06:41 Saline 0.9% IV 08/07/24 05:39 20 mls/hr .Q24H SIGRID Administration Intake and Output 07/07/24 07/08/24 07/08/24 22:59 06:59 14:59 Other: Weight 58.2 kg 07/08/24 06:28 07/08/24 06:28
[2024-07-08] MEDS: ceFAZolin 2 GM in DEXTROSE 5% IN WATER 50 ML IVPB ONE (08:05)
[2024-07-08] MEDS: IOPAMIDOL-370 100ML BTL INJ ONE (08:13)
[2024-07-08] MEDS: LIDOCAINE 1% INJ 10MG/ML (20 ML MDV) SQ ONE (08:14)
[2024-07-08] MEDS: HEPARIN SODIUM,PORCINE 10,000 UNIT in SODIUM CHLORIDE 0.9% 1,000 ML IRRIGATION ONE (08:16)
[2024-07-08] MEDS: HEPARIN SODIUM (1,000 UNIT/ML) 1,000 UNIT in SODIUM CHLORIDE 0.9% 1,000 ML IRRIGATION ONE (08:16)
[2024-07-08] MEDS: HEPARIN SOD,PORK IN 0.45% NACL 25,000 UNIT in 0.45% NACL 1 250ML.BAG IV ONE (08:44)
[2024-07-08] MEDS ORDERED: ACETAMINOPHEN TAB 325 MG TAB PO PRN (12:02)
[2024-07-08 12:20] LABS: Glucose,Whole Blood 93 mg/dL (70-110)
--- NOTE | 2024-07-08 12:20 | P.EPPROC ---
- EP Procedure Note Electrophysiology Procedure Note: Indication for the procedure Symptomatic atrial arrhythmias, documented 1. Atrial tachycardia consistent with a right atrial tachycardia 2. Typical atrial flutter 3. Dual-chamber ICD, [employer]. 2 ICD leads in situ Final diagnosis Reentrant right atrial free wall tachycardia, status post successful mapping followed by ablation and verification with voltage mapping Typical atrial flutter, status post successful ablation Device interrogation with reprogramming, stable impedances and thresholds patent Right upper extremity venogram, patent veins Left upper extremity venograms diminutive but patent axillary vein, patent subclavian vein and innominate vein Details Patient was brought to the EP lab in a fasting state. Written informed consent was present prior to the procedure. General anesthesia provided. Venous sheaths were placed in the right left femoral veins Diagnostic catheter was positioned in the high right atrium, right ventricle, coronary sinus the dual-chamber ICD was interrogated, and reprogrammed. Tachycardia therapies were turned off. Rate responsiveness was turned off Patient was in an atrial tachycardia consistent with her clinical rhythm seen in the office Twelve-lead EKG showed biphasic waves in lead V1, somewhat upright in inferior leads, late upright in lead I A Penta ray catheter was placed. Coronary sinus catheter was used as reference concentric activation noted Detailed activation mapping revealed a reentrant tachycardia in the anterolateral wall of the right atrium Phrenic nerve pacing was performed to identify the course of the phrenic nerve RF ablation was performed in the gap/isthmus of the tachycardia This line was then carried down to the IVC It was also extended towards the SVC but in the final portion, near the SVC, RF ablations were withheld since the lead was quite close by and the phrenic nerve was slightly posterior. However the RF line was completed and the gap/isthmus was ablated completely Thereafter in sinus rhythm the cavotricuspid isthmus was mapped with intracardiac echo and 3D mapping The leads were identified and a more septal line was chosen closer to the coronary sinus os which was also mapped on intracardiac echo An RF line was placed somewhat septal to avoid the ICD leads A complete line of block was made and this was verified with voltage mapping at the end of the procedure The pacing impedances of both leads were stable before and after the procedure. High-voltage impedance was stable High-dose Isopril was employed. Burst stimulation was performed from the coronary sinus. No other arrhythmias were induced Intracardiac echo revealed absence of any pericardial effusion The venous sheaths were removed and closure devices were applied and hemostasis showed Patient tolerated these the procedure well without any acute complications
[2024-07-08 12:31] VITALS: RESP 16
[2024-07-08] MEDS: ACETAMINOPHEN IV (For NPO) 1,000 MG in EMPTY BAG 1 BAG IVPB ONE (15:09)
[2024-07-08] MEDS: GABAPENTIN 400 MG CAP PO SCH (15:09)
[2024-07-08] MEDS: BRIMONIDINE TARTRATE 0.2% DROPS 5 ML BTL BOTH EYES SCH (15:10)
[2024-07-08] MEDS: DORZOLAMIDE HCL 2% DROPS 10 ML BTL RIGHT EYE SCH (15:11)
[2024-07-08] MEDS: TIMOLOL 0.5% OPHTH DROPS 5 ML BTL BOTH EYES SCH (15:11)
[2024-07-08 20:27] LABS: Glucose,Whole Blood 239 mg/dL (70-110)
[2024-07-08] MEDS: PANTOPRAZOLE 40 MG TABLET PO SCH (21:13)
[2024-07-08] MEDS: CHOLECALCIFEROL 25 MCG (1000 IU) TABLET PO SCH (21:13)
[2024-07-08] MEDS: METOPROLOL SUCCINATE (ER) 25 MG TAB.ER.24H PO SCH (21:13)
[2024-07-08] MEDS: lisinopriL 5 MG TAB PO SCH (21:13)
[2024-07-08] MEDS: ATORVASTATIN 20 MG TAB PO SCH (21:13)
[2024-07-08] MEDS: LATANOPROST 0.005% OPHTH DROPS 2.5 ML BTL BOTH EYES SCH (21:13)
[2024-07-08] MEDS: APIXABAN 5 MG TAB PO SCH (21:13)
[2024-07-08] MEDS: DAPAGLIFLOZIN PROPANEDIOL 10 MG TABLET PO SCH (21:13)
[2024-07-09 05:55] LABS: Glucose,Whole Blood 94 mg/dL (70-110)
[2024-07-09 07:57] VITALS: BP 134/77; PULSE 77; TEMP 98.3
[2024-07-09] MEDS: Dulaglutide [Trulicity] 3 MG/0.5 ML SQ SCH (09:29)
--- NOTE | 2024-07-09 12:44 | P.DS ---
Providers Attending physician: Fabian Glynn Primary care physician: [facility] Course: Doing very well. No chest discomfort dizziness lightheadedness or palpitations On examination heart sounds are normal and regular Breath sounds are clear blood pressure 134/77 mmHg pulse rate in the 70s afebrile Groins of healed well no hematoma no swelling Impression Symptomatic atrial tachycardia with shortness of breath on exertion in the setting of underlying cardiomyopathy Typical atrial flutter Successful ablation of reentrant right atrial free wall tachycardia Successful atrial flutter ablation Plan Continue anticoagulation Continue current medications Discharge home today and follow-up with Dr. Johnson in 1 week Plan - Discharge Summary Discharge Rx Participant: Yes New Discharge Prescriptions: Continue Atorvastatin [Lipitor] 20 mg PO HS ramipriL [Altace] 1.25 mg PO HS Gabapentin 800 mg PO TID Dapagliflozin Propanediol [Farxiga] 10 mg PO HS Metoprolol Succinate [Toprol XL] 25 mg PO HS Dorzolamide HCl/Pf [Dorzolamide 2% Eye Drop] 1 drop RIGHT EYE TID Latanoprost Ophth [Xalatan 0.005%] 1 drops BOTH EYES BID Apixaban [Eliquis] 5 mg PO BID Brimonidine Tartrate/Timolol [Combigan 0.2%-0.5% Eye Drops] 1 drop BOTH EYES TID Omeprazole 20 mg PO HS rOPINIRole HCL [Requip XL] 2 mg PO HS traMADol HCL 50 mg PO DIRECTED PRN PRN Reason: Pain Vitamin B Complex 1 each PO TUSA Cholecalciferol [Vitamin D3 (25 Mcg = 1000 Iu)] 2,000 unit PO BID Dulaglutide [Trulicity] 3 mg SQ TU Discharge Medication List Atorvastatin [Lipitor] 20 mg PO HS 09/25/13 [History] ramipriL [Altace] 1.25 mg PO HS 04/04/18 [History] Gabapentin 800 mg PO TID 04/18/18 [History] Dapagliflozin Propanediol [Farxiga] 10 mg PO HS 05/04/18 [History] Metoprolol Succinate [Toprol XL] 25 mg PO HS 10/14/19 [History] Brimonidine Tartrate/Timolol [Combigan 0.2%-0.5% Eye Drops] 1 drop BOTH EYES TID 07/13/20 [History] Apixaban [Eliquis] 5 mg PO BID 02/01/24 [History] Cholecalciferol [Vitamin D3 (25 Mcg = 1000 Iu)] 2,000 unit PO BID 02/01/24 [History] Dorzolamide HCl/Pf [Dorzolamide 2% Eye Drop] 1 drop RIGHT EYE TID 02/01/24 [History] Latanoprost Ophth [Xalatan 0.005%] 1 drops BOTH EYES BID 02/01/24 [History] Omeprazole 20 mg PO HS 02/01/24 [History] Vitamin B Complex 1 each PO TUSA 02/01/24 [History] rOPINIRole HCL [Requip XL] 2 mg PO HS 02/01/24 [History] traMADol HCL 50 mg PO DIRECTED PRN 02/01/24 [History] Dulaglutide [Trulicity] 3 mg SQ TU 07/04/24 [History] Follow up Appointment(s)/Referral(s): Fabian Glynn MD [STAFF PHYSICIAN] - 07/17/24 2:15 pm (Appointment made with Dr Johnson) Patient Instructions/Handouts: Electrophysiology Study (DC) Activity/Diet/Wound Care/Special Instructions: Post EP study - Ablation instructions 1. Keep access sites dry for 2 days. 2. No heavy lifting or straining for 2 days. 3. Avoid bending the hips repeatedly for 2 days. 4. You may go up and down stairs slowly 5. If you have had an ablation for atrial fibrillation or atrial flutter and are on a blood thinner, do not stop the blood thinner even temporarily for 3 months post ablation Call if the following is noted 1. Bleeding, increasing swelling or pain at the access sites. 2. Increasing chest discomfort, especially upon taking a deep breath. 3. Increasing shortness of breath, at rest or with exertion. 4. Undue cough / phlegm 5. Difficulty or pain while swallowing. 6. Pain or change in color in the extremities. 7. Fever, chills, rigors. 8. Increasing headache or neurologic symptoms. 9. Dizziness, fainting, palpitations For patients who have undergone an A-fib ablation /atrial flutter ablation Strict instruction; do NOT stop anticoagulation (Eliquis/Xarelto/Pradaxa) for the next 2 months temporarily, for any elective, nonurgent surgery. This increases the risk of stroke, post A-fib ablation Discharge Disposition: HOME SELF-CARE
== END 2024-07-09 12:33 | disposition home or self-care (01) ==
LOC: CATHEP 05:48 → 6NMEDSUR 11:25 → CATHEP 07-09 12:33
PROVIDERS: ATTEND Internal Medicine Clinical Cardiac Electrophysiology
DX: I48.3 Typical atrial flutter (principal); E11.42 Type 2 diabetes mellitus with diabetic polyneuropathy; E78.5 Hyperlipidemia, unspecified; G25.81 Restless legs syndrome; G89.29 Other chronic pain; I11.0 Hypertensive heart disease with heart failure; I50.9 Heart failure, unspecified; I48.91 Unspecified atrial fibrillation; I47.19 Other supraventricular tachycardia; I44.2 Atrioventricular block, complete; I42.9 Cardiomyopathy, unspecified; J45.909 Unspecified asthma, uncomplicated; M19.90 Unspecified osteoarthritis, unspecified site; M79.7 Fibromyalgia; Z79.01 Long term (current) use of anticoagulants; Z79.899 Other long term (current) drug therapy; Z95.810 Presence of automatic (implantable) cardiac defibrillator
CPT/HCPCS: 93623; 93662; 93653; 93655; 86900; 86901; 84439; 80053; 84443; 85025; 86850; C1759; C1894; C1769; C1766; C1760; C1730; C1731; C1732; J1644 ×3; J0690; J2003; J0131; Q9967